=== PATIENT | female | born 1945 | race African-American/Black ===

== ENCOUNTER 2017-07-26 16:31 | Inpatient (IN) | payer OTHER ==
--- NOTE | 2017-07-26 16:39 | PDOC ---
Rapid Medical Evaluation Time Seen by Provider: 07/26/17 16:34 Medical Evaluation: 07/26/17 16:34 I have performed a brief in-person evaluation of this patient. The patient presents with a chief complaint of: dyspnea on exertion without chest pain Pertinent physical exam findings: PULM: Lungs CTAB. Resp labored. Cards: RRR. S1S2. No m/r/g. I have ordered the following: EKG, CBC, CMP, Trop, BNP, coags, UA, CXR, Mg, O2 The patient will proceed to the ED for further evaluation. Discharge Disposition - Diagnosis SOB (shortness of breath) - Referrals - Patient Instructions - Post Discharge Activity
[2017-07-26 17:24] LABS: MCH 24.9 pg (25.7-33.7); MCHC 32.3 g/dl (32.0-36.0); MEAN CELL VOLUME 77.2 fl (80-96); MEAN PLT VOLUME 8.6 fl (7.5-11.1); PLATELET COUNT 332 K/MM3 (134-434); RDW 15.2 % (11.6-15.6); WHITE BLOOD COUNT 7.4 K/mm3 (4.0-10.0)
[2017-07-26 17:39] LABS: INR 1.17 (0.82-1.09); PROTHROMBIN TIME (PATIENT) 13.2 SEC (9.98-11.88)
[2017-07-26 17:50] LABS: ALBUMIN 2.5 g/dl (3.4-5.0); ANION GAP 8 (8-16); BILIRUBIN,TOTAL 0.5 mg/dL (0.2-1.0); CALCIUM 8.5 mg/dL (8.5-10.1); CO2 28 mmol/L (21-32); CREATININE 0.6 mg/dL (0.55-1.02); GLUCOSE,RANDOM 79 mg/dL (74-106); MAGNESIUM 2.1 mg/dL (1.8-2.4); SGOT/AST 328 U/L (15-37); SGPT/ALT 321 U/L (12-78); TOT PROT 6.7 g/dl (6.4-8.2)
[2017-07-26 18:13] LABS: ALK PHOS 70 U/L (45-117)
[2017-07-26 18:24] LABS: CPK 10623 IU/L (26-192); TROPONIN I 1.25 ng/ml (0.00-0.05)
[2017-07-26 18:32] LABS: ANISOCYTOSIS 1+; POLYCHROMASIA 1+
--- NOTE | 2017-07-26 18:34 | PDOC ---
History of Present Illness - General Chief Complaint: Shortness of Breath Stated Complaint: PCP SENT INCREASE SOB Time Seen by Provider: 07/26/17 16:34 - History of Present Illness Initial Comments: 07/26/17 18:29 "The patient is a 72-year-old female, with a significant past medical history of HTN and gerd, who presents to the ED with one month of shortness of breath on exertion and bilateral lower extremity swelling. Pt saw her PCP today for worsening CHACON and was referred to ER for further evaluation. Pt denies ever having chest pain. Denies palpitations. Denies F/C. Denies cough. Denies orthopnea. No recent travel/immobilization. No h/o DVT/PE. " Past History - Past Medical History Allergies/Adverse Reactions: Allergies Allergy/AdvReac Type Severity Reaction Status Date / Time No Known Allergies Allergy Verified 07/26/17 16:35 Home Medications: Ambulatory Orders Amlodipine Besylate 10 mg PO DAILY 07/26/17 Famotidine 20 mg PO DAILY 07/26/17 Triamterene/Hydrochlorothiazid [Triamterene-Hctz 37.5-25 mg Cp] 1 tab PO DAILY 07/26/17 COPD: No GI Disorders: Yes (GERD) HTN: Yes - Suicide/Smoking/Psychosocial Hx Smoking History: Never smoked Information on smoking cessation initiated: No Hx Alcohol Use: No Drug/Substance Use Hx: No Substance Use Type: None Review of Systems - Review of Systems Comments:: 07/26/17 18:34 "GENERAL/CONSTITUTIONAL: no fever or chills. No weakness. HEAD, EYES, EARS, NOSE AND THROAT: No change in vision. No ear pain or discharge. No sore throat. CARDIOVASCULAR: +shortness of breath. No chest pain. RESPIRATORY: No cough, wheezing, or hemoptysis. GASTROINTESTINAL: No nausea, vomiting, diarrhea or constipation. GENITOURINARY: No dysuria, frequency, or change in urination. MUSCULOSKELETAL: No joint swelling or pain. No neck or back pain. EXTREMITIES: +bilateral lower extremity swelling. SKIN: No rash NEUROLOGIC: No headache, vertigo, loss of consciousness, or change in strength/ sensation. ENDOCRINE: No increased thirst. No abnormal weight change. HEMATOLOGIC/LYMPHATIC: No anemia, easy bleeding, or history of blood clots. ALLERGIC/IMMUNOLOGIC: No hives or skin allergy. " *Physical Exam - Vital Signs Last Vital Signs Temp Pulse Resp BP Pulse Ox 97.9 F 108 H 19 150/87 97 07/26/17 16:33 07/26/17 16:33 07/26/17 16:33 07/26/17 16:33 07/26/17 16:33 - Physical Exam Comments: 07/26/17 18:34 "GENERAL: Awake, alert, and fully oriented, in no acute distress HEAD: No signs of trauma EYES: PERRLA, EOMI, sclera anicteric, conjunctiva clear ENT: Auricles normal inspection, hearing grossly normal, nares patent, oropharynx clear without exudates. Moist mucosa NECK: Nontender, no stepoffs, Normal ROM, supple, no lymphadenopathy, JVD, or masses LUNGS: Breath sounds equal, clear to auscultation bilaterally. No wheezes, and no crackles HEART: Regular rate and rhythm, normal S1 and S2, no murmurs, rubs or gallops ABDOMEN: Soft, nontender, normoactive bowel sounds. No guarding, no rebound. No masses EXTREMITIES: +1 PE BLE, Normal range of motion, no edema. No clubbing or cyanosis. No cords, erythema, or tenderness NEUROLOGICAL: Cranial nerves II through XII intact. 5/5 strength and sensation in all extremities, Normal speech, normal gait SKIN: Warm, Dry, normal turgor, no rashes or lesions noted. " Heart Score/ECG Review - History History: Slightly suspicious - Electrocardiogram EKG: Non specific repolarization disturbance - Age Age: >/= 65 - Risk Factors Risk Factors Heart Score: Yes Hx Hypertension Based on the list above the patient has:: 1-2 risk factors - Troponin Troponin: >/=3x normal limit - Score Heart Score - Total: 6 - ECG Impressions Comment:: 07/26/17 18:35 NSR, no DOUGIE/STDs, T wave flattening and Q waves in anterior leads ED Treatment Course - LABORATORY CBC & Chemistry Diagram: 07/29/17 06:58 07/29/17 06:58 - ADDITIONAL ORDERS Additional order review: Laboratory Results 07/26/17 07/26/17 16:10 16:10 PT with INR 13.20 H INR 1.17 H Sodium 141 Potassium 3.7 Chloride 105 Carbon Dioxide 28 Anion Gap 8 BUN 11 Creatinine 0.6 Creat Clearance w eGFR > 60 Random Glucose 79 Calcium 8.5 Magnesium 2.1 Total Bilirubin 0.5 AST 328 H ALT 321 H Alkaline Phosphatase 70 Creatine Kinase 47391 H Troponin I 1.25 H* Total Protein 6.7 Albumin 2.5 L 07/26/17 16:10 RBC 5.28 H MCV 77.2 L MCHC 32.3 RDW 15.2 MPV 8.6 Neutrophils % No Result Required. Lymphocytes % No Result Required. - RADIOLOGY Radiology Studies Ordered: Category Date Time Status CHEST X-RAY PORTABLE* [RAD] Stat Radiology 07/26/17 18:27 Ordered Medical Decision Making - Medical Decision Making 07/26/17 18:35 72 F with SOB x 1 month as well as pedal edema. Concerning for new onset CHF. Also consider ACS, though pt without any chest pain. Pt with no asymmetric leg swelling to suggest DVT. - Labs, trop, BNP - CXR - Admit tele 07/26/17 18:42 Trop elevated to 1.2. Spoke with Dr. Flores, who states that pt had echo in clinic today showing normal LV function. Given this information, will order CTA chest to r/o PE. Will initiate tx for NSTEMI. Pt started on Heparin. aspirin and statin administered. Case discussed with Dr. Jones, who has accepted pt for admission Case discussed in detail with admitting physician including history, physical exam and ancillary studies. Admitting physician has assumed care for the patient and will follow all pending diagnostics and complete the evaluation and treatment. *DC/Admit/Observation/Transfer Diagnosis at time of Disposition: SOB (shortness of breath), NSTEMI (non-ST elevated myocardial infarction) - Discharge Dispostion Disposition: TRANSFER ACUTE CARE/OTHER HOSP Condition at time of disposition: Good Admit: Yes - Referrals - Patient Instructions - Post Discharge Activity - Attestations Physician Attestion: 07/26/17 18:36 I, Dr. Christian Lama MD, attest that this document has been prepared under my direction and personally reviewed by me in its entirety. I further attest, that it accurately reflects all work, treatment, procedures and medical decision -making performed by me.
[2017-07-26] MEDS: ATORVASTATIN CA 80 MG TABLET (FP) PO ONE ×2 (19:21→19:45)
[2017-07-26] MEDS: ASPIRIN 325 MG TABLET PO ONE ×2 (19:21→19:45)
[2017-07-26] MEDS ORDERED: ATORVASTATIN CA 80 MG TABLET (FP) ONE (19:52)
[2017-07-26] MEDS ORDERED: ASPIRIN 325 MG TABLET ONE (19:52)
[2017-07-26] MEDS ORDERED: HEPARIN NA (PORCINE) 5,000 UNITS/ML 1ML VIAL ONE ×2 (19:53→20:22)
[2017-07-26] MEDS ORDERED: HEPARIN INFUSION - 25,000 UNITS/500 ML INFUS.BAG IVPB ONE (19:53)
[2017-07-26] MEDS: HEPARIN NA (PORCINE) 5,000 UNITS/ML 1ML VIAL IVPUSH PRN (20:15)
[2017-07-26 21:26] LABS: TROPONIN I 1.28 ng/ml (0.00-0.05)
[2017-07-26 22:39] VITALS: BMI 27.7
[2017-07-27] MEDS: HEPARIN - 25,000 UNIT in SODIUM CHLORIDE 495 ML IV SCH ×2 (01:20→21:36)
[2017-07-27 04:32] LABS: TROPONIN I 1.28 ng/ml (0.00-0.05)
[2017-07-27 07:14] LABS: BASO % 0.8 % (0-2.0); EOS % 2.1 % (0-4.5); MCH 24.9 pg (25.7-33.7); MCHC 32.4 g/dl (32.0-36.0); MEAN PLT VOLUME 8.9 fl (7.5-11.1); NEUT % 77.4 % (42.8-82.8); PLATELET COUNT 311 K/MM3 (134-434); RDW 15.7 % (11.6-15.6); WHITE BLOOD COUNT 6.1 K/mm3 (4.0-10.0)
--- NOTE | 2017-07-27 07:20 | CON.CARD ---
Consult Consult Specialty:: Cardiology Referred by:: ER Reason for Consultation:: SOB, NSTEMI - History of Present Illness Chief Complaint: SOB, edema History of Present Illness: 72 year old woman h/o HTN seen in office yesterday with c/o 1 month h/o SOB, edema, found to have sinus tach with ST depressions, echo in office showed hyperdynamic LV function, mild mr, mild pulm htn, sent to ER. found to have elevated cardiac enzymes, CTA showed no PE. Pt seen and examined this am in nad. states she is feeling better. no chest pain, no sob at rest. no palpitations. no pnd or orthopnea. mild LE edema. - History Source History Provided By: Patient, Medical Record Limitations to Obtaining History: No Limitations - Past Medical History Cardio/Vascular: Yes: HTN - Alcohol/Substance Use Hx Alcohol Use: No - Smoking History Smoking history: Never smoked - Social History Usual Living Arrangement: Alone ADL: Independent History of Recent Travel: No Home Medications - Allergies Allergies/Adverse Reactions: Allergies Allergy/AdvReac Type Severity Reaction Status Date / Time No Known Allergies Allergy Verified 07/26/17 16:35 - Home Medications Home Medications: Ambulatory Orders Amlodipine Besylate 10 mg PO DAILY 07/26/17 Famotidine 20 mg PO DAILY 07/26/17 Triamterene/Hydrochlorothiazid [Triamterene-Hctz 37.5-25 mg Cp] 1 tab PO DAILY 07/26/17 Family Disease History - Family Disease History Family History: Denies Review of Systems - Review of Systems Constitutional: denies: No Symptoms, Chills, Diaphoresis, Fever, Lethargy, Loss of Appetite, Malaise, Night Sweats, Unintentional Wgt. Loss, Weakness, Other Eyes: denies: No Symptoms, Blind Spots, Blurred Vision, Double Vision, Eye Pain , Floaters, Photophobia, Recent Change in Vision, Other HENT: denies: No Symptoms, Difficult Swallowing, Ear Discharge, Ear Pain, Epistaxis, Gingival Bleeding, Hearing Loss, Mouth Swelling, Nasal Congestion, Ocular Prosthesis, Throat Pain, Toothache, Ringing in Ears, Other Neck: denies: No Symptoms, Decreased ROM, Lumps, Pain on Movement, Stiffness, Swollen Glands, Tenderness, Other Cardiovascular: reports: Edema, Shortness of Breath. denies: No Symptoms, Chest Pain, Palpitations, Other Respiratory: reports: SOB, SOB on Exertion. denies: No Symptoms, Cough, Exercise Intolerance, Hemoptysis, Orthopnea, PND, Snoring, Wheezing, Other Gastrointestinal: denies: No Symptoms, Abdominal Pain, Bloating, Constipation, Diarrhea, Dysphagia, Indigestion, Melena, Nausea, Rectal Bleeding, Vomiting, Vomiting Blood, Other Genitourinary: denies: No Symptoms, Burning, Discharge, Dysuria, Flank Pain, Frequency, Hematuria, Incontinence, Lesions, Menses, Pain, Testicular Mass, Testicular Pain, Testicular Swelling, Urgency, Vaginal Bleeding, Other Breasts: denies: No Symptoms Reported, See HPI, Breast Implants, Discharge from Nipple, Lumps, Pain, Skin Changes, Other Musculoskeletal: denies: No Symptoms, Back Pain, Crepitus, Decreased ROM, Extremity Pain, Joint Pain, Joint Swelling, Muscle Pain, Muscle Cramps, Muscle Weakness, Other Integumentary: denies: No Symptoms, Blister, Bruising, Change in Color, Eczema, Erythema, Incision, Lesions, Lump, Pallor, Pruritis, Rash, Wound, Other Neurological: denies: No Symptoms, Change in LOC, Change in Speech, Confusion, Dizziness, Headache, Incoordination, Numbness, Parasthesia, Pre-Existing Deficit , Seizure, Syncope, Tremors, Unsteady Gait, Weakness, Other Endocrine: denies: No Symptoms, Excessive Sweating, Flushing, Increased Hunger, Increased Thirst, Intolerance to Cold, Intolerance to Heat, Unexplained Weight Gain, Unexplained Weight Loss, Other Hematology/Lymphatic: denies: No Symptoms, Easily Bruised, Excessive Bleeding, Swollen Glands, Other Psychiatric: denies: No Symptoms, Altered Sleep Pattern, Anxiety, Depression, Hallucinations, Panic, Paranoia, Suicidal, Other - Risk Factors Known Risk Factors: Yes: Age, Hypertension Vital Signs: Vital Signs Temperature 98.4 F 07/27/17 06:00 Pulse Rate 90 07/27/17 06:00 Respiratory Rate 20 07/27/17 06:00 Blood Pressure 116/61 07/27/17 06:00 O2 Sat by Pulse Oximetry (%) 97 07/26/17 21:00 Constitutional: Yes: Well Nourished, No Distress, Calm Eyes: Yes: WNL, Conjunctiva Clear, EOM Intact, PERRL HENT: Yes: WNL, Atraumatic, Normocephalic Neck: Yes: WNL, Supple, Trachea Midline Respiratory: Yes: WNL, Regular, CTA Bilaterally. No: Rales, Rhonchi, SOB, Wheezes Gastrointestinal: Yes: WNL, Normal Bowel Sounds, Soft. No: Distention, Tenderness Renal/: Yes: WNL Cardiovascular: Yes: WNL, Regular Rate and Rhythm. No: Bradycardia, Tachycardia , Pulse Irregular, Gallop, Rub, Varicosities JVD: No Carotid Bruit: No PMI: Non-Displaced Heart Sounds: Yes: S1, S2. No: Split S2, S3, S4, Clicks, Gallop, Rub, Bruit Murmur: No: Systolic Murmur, Diastolic Murmur Musculoskeletal: Yes: WNL Extremities: Yes: WNL Edema: Yes Edema: LLE: Trace, RLE: Trace Peripheral Pulses WNL: Yes Peripheral Pulses: 2+ Left Doralis Pedis, 2+ Right Dorsalis Pedis Integumentary: Yes: WNL Neurological: Yes: WNL, Alert, Oriented, Cran Nerves II-XII Intact ...Motor Strength: WNL Psychiatric: Yes: WNL, Alert, Oriented - Other Data Labs, Other Data: CBC, BMP 07/27/17 05:05 INR, PTT INR 1.17 (0.82-1.09) H 07/26/17 16:10 Troponin, BNP 07/26/17 07/26/17 07/27/17 16:10 20:15 03:30 Troponin I 1.25 H* 1.28 H* 1.28 H* B-Natriuretic Peptide 3329.08 H Troponin, BNP 07/26/17 07/26/17 07/27/17 16:10 20:15 03:30 Troponin I 1.25 H* 1.28 H* 1.28 H* B-Natriuretic Peptide 3329.08 H ekg-sinus tach 106bpm, St depressions V3-V6, I avL, septal infarct, LAD Echo: Report Reviewed Imaging - Results Chest X-ray: Report Reviewed, Image Reviewed EKG: Report Reviewed, Image Reviewed Other: Report Reviewed, Image Reviewed (tele-nsr, sinus tach, PVCs, Vent couplets) Assessment/Plan 72 year old woman h/o HTN seen in office yesterday with c/o 1 month h/o SOB, edema, found to have sinus tach with ST depressions, echo in office showed hyperdynamic LV function, mild mr, mild pulm htn, sent to ER. found to have elevated cardiac enzymes, CTA showed no PE. SOB/edema-NSTEMI -concern for NSTEMI -CTA showed no PE -echo in office yesterday reported as hyperdynamic LV systolic function -ischemia on ekg -CK 10,000 Trop 1.28 peak, not trending up -no history concerning for rhabdo (considered due to ratio of CK to troponin), no falls, pt not on statin previously -no sig arrhythmias on telemetry overnight -cont heparin gtt -cont ASA 81mg daily -start Plavix 75mg daily, Toprol XL 12.5mg daily -hold statin for now due to possible rhabdo and elevated LFTs -hold off on diuresis at this time, overall euvolemic despite trace LE edema -will plan for transfer to [facility] for cardiac cath, likely transfer tomorrow for cardiac cath on saturday. HTN-well controlled -start toprol -hold home triamterene and amlodipine for now to allow room for [facility]
[2017-07-27 08:08] LABS: ANION GAP 10 (8-16); BILIRUBIN,TOTAL 0.6 mg/dL (0.2-1.0); CALCIUM 8.3 mg/dL (8.5-10.1); CO2 27 mmol/L (21-32); CREATININE 0.4 mg/dL (0.55-1.02); GLUCOSE,RANDOM 69 mg/dL (74-106); SGOT/AST 228 U/L (15-37); SGPT/ALT 245 U/L (12-78); TOT PROT 5.6 g/dl (6.4-8.2)
[2017-07-27 08:09] LABS: ALK PHOS 56 U/L (45-117)
[2017-07-27] MEDS ORDERED: PNEUMOC 13-VAL CONJ-DIP CRM/PF 0.5 ML DISP.SYRIN IM ONE (09:00)
[2017-07-27] MEDS: ASPIRIN COATED 81 MG TABLET.EC PO SCH (09:31)
[2017-07-27] MEDS: METOPROLOL SUCCINATE 25 MG TAB.SR.24H (FP) PO SCH (11:01)
[2017-07-27] MEDS: CLOPIDOGREL BISULFATE 75 MG TABLET (FP) PO SCH (11:01)
--- NOTE | 2017-07-27 19:45 | PN ---
Progress Note, Physician History of Present Illness: Pt was seen and examined However H&P was entered in error - Current Medication List Current Medications: Active Medications Aspirin (Ecotrin -) 81 mg PO DAILY [facility] Last Admin: 07/27/17 09:31 Dose: 81 mg Clopidogrel Bisulfate (Plavix -) 75 mg PO DAILY [facility] Last Admin: 07/27/17 11:01 Dose: 75 mg Heparin Sodium (Porcine) (Heparin -) 5,000 unit IVPUSH PRN PRN PRN Reason: Heparin Last Admin: 07/26/17 20:15 Dose: 5,000 unit Heparin Sodium (Porcine) 25, (000 unit/ Sodium Chloride) 500 mls @ 20 mls/hr IV TITR BILLY; 1,000 UNIT/HR PRN Reason: Protocol Last Admin: 07/27/17 01:20 Dose: 1,000 unit/hr, 20 mls/hr Metoprolol Succinate (Toprol Xl -) 12.5 mg PO DAILY [facility] Last Admin: 07/27/17 11:01 Dose: 12.5 mg - Objective Vital Signs: Vital Signs Temperature 98.2 F 07/27/17 18:00 Pulse Rate 88 07/27/17 18:00 Respiratory Rate 20 07/27/17 18:00 Blood Pressure 114/59 07/27/17 18:00 O2 Sat by Pulse Oximetry (%) 97 07/27/17 09:00 Labs: CBC, BMP 07/27/17 05:05 07/27/17 05:05 INR, PTT INR 1.17 (0.82-1.09) H 07/26/17 16:10
[2017-07-27] MEDS ORDERED: ATORVASTATIN CA 80 MG TABLET (FP) PO SCH (22:00)
[2017-07-28] MEDS: HEPARIN NA (PORCINE) 5,000 UNITS/ML 1ML VIAL IVPUSH PRN ×2 (02:55→17:43)
[2017-07-28 09:09] LABS: MCH 24.9 pg (25.7-33.7); MCHC 32.2 g/dl (32.0-36.0); MEAN CELL VOLUME 77.5 fl (80-96); MEAN PLT VOLUME 8.8 fl (7.5-11.1); PLATELET COUNT 322 K/MM3 (134-434); WHITE BLOOD COUNT 6.4 K/mm3 (4.0-10.0)
[2017-07-28] MEDS: ASPIRIN COATED 81 MG TABLET.EC PO SCH (09:39)
[2017-07-28] MEDS: METOPROLOL SUCCINATE 25 MG TAB.SR.24H (FP) PO SCH (09:39)
[2017-07-28] MEDS: CLOPIDOGREL BISULFATE 75 MG TABLET (FP) PO SCH (09:40)
--- NOTE | 2017-07-28 10:04 | PN ---
Progress Note, Physician History of Present Illness: seen and examined today in nad. no overnight events. no new complaints. states she is overall feeling better since admission. - Current Medication List Current Medications: Active Medications Aspirin (Ecotrin -) 81 mg PO DAILY [facility] Last Admin: 07/28/17 09:39 Dose: 81 mg Clopidogrel Bisulfate (Plavix -) 75 mg PO DAILY [facility] Last Admin: 07/28/17 09:40 Dose: 75 mg Heparin Sodium (Porcine) (Heparin -) 5,000 unit IVPUSH PRN PRN PRN Reason: Heparin Last Admin: 07/28/17 02:55 Dose: 1,000 unit Heparin Sodium (Porcine) 25, (000 unit/ Sodium Chloride) 500 mls @ 20 mls/hr IV TITR BILLY; 1,000 UNIT/HR PRN Reason: Protocol Last Titration: 07/28/17 02:55 Dose: 1,100 unit/hr, 22 mls/hr Metoprolol Succinate (Toprol Xl -) 12.5 mg PO DAILY [facility] Last Admin: 07/28/17 09:39 Dose: 12.5 mg - Objective Vital Signs: Vital Signs Temperature 98.3 F 07/28/17 05:42 Pulse Rate 84 07/28/17 05:42 Respiratory Rate 20 07/28/17 05:42 Blood Pressure 132/60 07/28/17 05:42 O2 Sat by Pulse Oximetry (%) 96 07/27/17 21:00 Constitutional: Yes: Well Nourished, No Distress, Calm Eyes: Yes: WNL, Conjunctiva Clear, EOM Intact, PERRL HENT: Yes: WNL, Atraumatic, Normocephalic Neck: Yes: WNL, Supple, Trachea Midline Cardiovascular: Yes: WNL, Regular Rate and Rhythm, S1, S2. No: Bradycardia, Tachycardia, Pulse Irregular, Bruit, JVD, Gallop, Murmur, Rub, S3, S4, Varicosities Respiratory: Yes: Regular, Diminished, On Nasal O2. No: Rales, Rhonchi, SOB, Wheezes Gastrointestinal: Yes: Normal Bowel Sounds, Soft. No: Distention, Tenderness Musculoskeletal: Yes: WNL Extremities: Yes: WNL Edema: LLE: Trace, RLE: Trace Peripheral Pulses WNL: Yes Peripheral Pulses: Left Doralis Pedis: 2+, Right Dorsalis Pedis: 2+ Neurological: Yes: Alert, Oriented Psychiatric: Yes: Alert, Oriented Labs: CBC, BMP 07/28/17 07:00 07/27/17 05:05 INR, PTT INR 1.17 (0.82-1.09) H 07/26/17 16:10 - ....Imaging Chest X-ray: Report Reviewed, Image Reviewed EKG: Report Reviewed, Image Reviewed Other: Report Reviewed, Image Reviewed (tele-nsr, pvcs, Vent couplets) Assessment/Plan 72 year old woman h/o HTN seen in office yesterday with c/o 1 month h/o SOB, edema, found to have sinus tach with ST depressions, echo in office showed hyperdynamic LV function, mild mr, mild pulm htn, sent to ER. found to have elevated cardiac enzymes, CTA showed no PE. SOB/edema-NSTEMI -clinically improving, no chest pain or sob currently -CTA showed no PE -echo in office reported as hyperdynamic LV systolic function -some suggestion of ischemia on ekg -CK 10,000 Trop 1.28 peak, will repeat enzymes now -no history concerning for cause of rhabdo (considered due to ratio of CK to troponin), no falls, pt not on statin previously -no sig arrhythmias on telemetry -cont heparin gtt until cardiac cath -cont ASA 81mg daily -cont Plavix 75mg daily, and Toprol XL 12.5mg daily -hold statin for now due to possible rhabdo and elevated LFTs -hold off on diuresis at this time, overall euvolemic despite trace LE edema -plan is for transfer to [facility] for cardiac cath, likely transfer tomorrow am for cardiac cath, pt requested to not go today as the procedure wouldnt be until tomorrow either way HTN-well controlled -cont toprol -hold home triamterene and amlodipine for now to allow room for [facility]
[2017-07-28 11:17] LABS: ALK PHOS 63 U/L (45-117); ANION GAP 9 (8-16); BILIRUBIN,TOTAL 0.8 mg/dL (0.2-1.0); CALCIUM 7.9 mg/dL (8.5-10.1); CO2 27 mmol/L (21-32); CREATININE 0.4 mg/dL (0.55-1.02); GLUCOSE,RANDOM 80 mg/dL (74-106); SGOT/AST 187 U/L (15-37); SGPT/ALT 223 U/L (12-78); TOT PROT 5.7 g/dl (6.4-8.2)
[2017-07-28 11:45] LABS: CPK 5997 IU/L (26-192)
[2017-07-28 11:47] LABS: TROPONIN I 0.85 ng/ml (0.00-0.05)
--- NOTE | 2017-07-28 21:40 | HP ---
Admitting History and Physical - Admission Chief Complaint: Pt seen and examined on 07/27/17 however note was entered incorrectly History of Present Illness: Pt is a 72 y/o female w/ PMH significant for HTN and GERD; however she is not on any meds. Pt presented to PMD today due to 1 month h/o SOB associated w/ lower extremity edema and weakness. Pt had not seen any doctor prior to this. Pt denies any chest pain and no palpitations/cough/wheezing. Pt also denied any abdominal pain and nausea and no vomiting. In the ER pt found to have elevated troponin >1.2 and BNP of >3000. Pt also had CXR wc cardiomegaly and CTA chest was done wc was negative for PE. - Past Medical History Cardiovascular: Yes: HTN Gastrointestinal: Yes: GERD - Past Surgical History Past Surgical History: Yes: None - Smoking History Smoking history: Never smoked - Alcohol/Substance Use Hx Alcohol Use: No - Social History ADL: Independent History of Recent Travel: No Home Medications - Allergies Allergies/Adverse Reactions: Allergies Allergy/AdvReac Type Severity Reaction Status Date / Time No Known Allergies Allergy Verified 07/26/17 16:35 - Home Medications Home Medications: Ambulatory Orders Amlodipine Besylate 10 mg PO DAILY 07/26/17 Famotidine 20 mg PO DAILY 07/26/17 Triamterene/Hydrochlorothiazid [Triamterene-Hctz 37.5-25 mg Cp] 1 tab PO DAILY 07/26/17 Family Disease History - Family Disease History Family History: Unremarkable Review of Systems - Review of Systems Constitutional: reports: Weakness Eyes: reports: No Symptoms HENT: reports: No Symptoms Neck: reports: No Symptoms Cardiovascular: reports: Shortness of Breath Respiratory: reports: SOB Gastrointestinal: reports: No Symptoms Genitourinary: reports: No Symptoms Musculoskeletal: reports: Muscle Weakness Neurological: reports: No Symptoms Physical Examination Vital Signs: Vital Signs Temperature 97.3 F L 07/28/17 21:00 Pulse Rate 88 07/28/17 21:00 Respiratory Rate 20 07/28/17 21:00 Blood Pressure 119/60 07/28/17 21:00 O2 Sat by Pulse Oximetry (%) 98 07/28/17 21:00 Constitutional: Yes: No Distress Eyes: Yes: WNL HENT: Yes: WNL Neck: Yes: WNL, Supple Cardiovascular: Yes: WNL, Regular Rate and Rhythm Respiratory: Yes: WNL, Regular, CTA Bilaterally Gastrointestinal: Yes: WNL, Normal Bowel Sounds, Soft Breast(s): Yes: WNL Musculoskeletal: Yes: WNL Edema: Yes Edema: LLE: Trace, RLE: Trace Neurological: Yes: WNL, Alert, Oriented ...Motor Strength: WNL Labs: CBC, BMP 07/28/17 07:00 07/28/17 07:45 Problem List - Problems (1) NSTEMI (non-ST elevated myocardial infarction) Assessment/Plan: Admitted to tele Serial cpk/troponin Check echo Pt on IV heparin Cont asa Statin on hold due to elevated LFT's ? transfer for cardiac cath Code(s): I21.4 - NON-ST ELEVATION (NSTEMI) MYOCARDIAL INFARCTION (2) HTN (hypertension) Assessment/Plan: Cont toprol/asa Code(s): I10 - ESSENTIAL (PRIMARY) HYPERTENSION (3) SOB (shortness of breath) Assessment/Plan: Due to NSTEMI vs CHF Pt is euvolemic Check echo Code(s): R06.02 - SHORTNESS OF BREATH (4) Elevated LFTs Assessment/Plan: Monitor LFT's Code(s): R79.89 - OTHER SPECIFIED ABNORMAL FINDINGS OF BLOOD CHEMISTRY
--- NOTE | 2017-07-28 21:41 | PN ---
Progress Note, Physician History of Present Illness: Pt denies any chest pain - Current Medication List Current Medications: Active Medications Aspirin (Ecotrin -) 81 mg PO DAILY [facility] Last Admin: 07/28/17 09:39 Dose: 81 mg Clopidogrel Bisulfate (Plavix -) 75 mg PO DAILY [facility] Last Admin: 07/28/17 09:40 Dose: 75 mg Heparin Sodium (Porcine) (Heparin -) 5,000 unit IVPUSH PRN PRN PRN Reason: Heparin Last Admin: 07/28/17 17:43 Dose: 1,000 unit Heparin Sodium (Porcine) 25, (000 unit/ Sodium Chloride) 500 mls @ 20 mls/hr IV TITR BILLY; 1,000 UNIT/HR PRN Reason: Protocol Last Titration: 07/28/17 17:42 Dose: 1,200 unit/hr, 24 mls/hr Metoprolol Succinate (Toprol Xl -) 12.5 mg PO DAILY [facility] Last Admin: 07/28/17 09:39 Dose: 12.5 mg - Objective Vital Signs: Vital Signs Temperature 97.3 F L 07/28/17 21:00 Pulse Rate 88 07/28/17 21:00 Respiratory Rate 20 07/28/17 21:00 Blood Pressure 119/60 07/28/17 21:00 O2 Sat by Pulse Oximetry (%) 98 07/28/17 21:00 Constitutional: Yes: No Distress Neck: Yes: WNL, Supple Cardiovascular: Yes: WNL, Regular Rate and Rhythm Respiratory: Yes: WNL, Regular, CTA Bilaterally Gastrointestinal: Yes: WNL, Normal Bowel Sounds, Soft Musculoskeletal: Yes: WNL Edema: Yes Edema: LLE: Trace, RLE: Trace Labs: CBC, BMP 07/28/17 07:00 07/28/17 07:45 INR, PTT INR 1.17 (0.82-1.09) H 07/26/17 16:10 Problem List - Problems (1) NSTEMI (non-ST elevated myocardial infarction) Assessment/Plan: Check echo Pt on IV heparin Cont asa/plavix/toprol Statin on hold due to elevated LFT's ? transfer for cardiac cath As per cardio Code(s): I21.4 - NON-ST ELEVATION (NSTEMI) MYOCARDIAL INFARCTION (2) Elevated LFTs Assessment/Plan: Monitor LFT's Check US abdomen GI consult Code(s): R79.89 - OTHER SPECIFIED ABNORMAL FINDINGS OF BLOOD CHEMISTRY (3) HTN (hypertension) Assessment/Plan: Cont toprol/asa Code(s): I10 - ESSENTIAL (PRIMARY) HYPERTENSION (4) SOB (shortness of breath) Assessment/Plan: Due to NSTEMI vs CHF Pt is euvolemic Check echo Code(s): R06.02 - SHORTNESS OF BREATH
[2017-07-28] MEDS ORDERED: PT OWN MED DRAWER 7, Y5N ONE (22:24)
[2017-07-28] MEDS: HEPARIN - 25,000 UNIT in SODIUM CHLORIDE 495 ML IV SCH (22:53)
[2017-07-29 08:04] LABS: MCH 24.6 pg (25.7-33.7); MCHC 31.9 g/dl (32.0-36.0); MEAN CELL VOLUME 76.9 fl (80-96); MEAN PLT VOLUME 8.8 fl (7.5-11.1); PLATELET COUNT 316 K/MM3 (134-434); RDW 15.7 % (11.6-15.6); WHITE BLOOD COUNT 6.6 K/mm3 (4.0-10.0)
[2017-07-29 08:35] LABS: CALCIUM 8.2 mg/dL (8.5-10.1); SGOT/AST 190 U/L (15-37); SGPT/ALT 228 U/L (12-78)
[2017-07-29 08:39] LABS: ALBUMIN 2.2 g/dl (3.4-5.0); ALK PHOS 69 U/L (45-117); ANION GAP 9 (8-16); BILIRUBIN,TOTAL 0.5 mg/dL (0.2-1.0); CO2 28 mmol/L (21-32); CREATININE 0.5 mg/dL (0.55-1.02); GLUCOSE,RANDOM 96 mg/dL (74-106); TOT PROT 6.2 g/dl (6.4-8.2)
[2017-07-29] MEDS: CLOPIDOGREL BISULFATE 75 MG TABLET (FP) PO SCH (09:30)
[2017-07-29] MEDS: METOPROLOL SUCCINATE 25 MG TAB.SR.24H (FP) PO SCH (09:30)
[2017-07-29] MEDS: ASPIRIN COATED 81 MG TABLET.EC PO SCH (09:30)
[2017-07-29 10:29] LABS: ANISOCYTOSIS 0; HYPOCHROMIA 0; MACROCYTOSIS 0; METAMYELOCYTE 0 % (0-2); MICROCYTOSIS 0; MYELOCYTE 4 % (0-2); PLATELET ESTIMATE NORMAL; POIKILOCYTOSIS 0; POLYCHROMASIA 0; REACTIVE LYMPHOCYTES 0 % (0-80); TARGET CELLS 3+
[2017-07-29] MEDS ORDERED: FUROSEMIDE 40 MG/4 ML INJECTABLE VIAL IVPUSH ONE (11:10)
--- NOTE | 2017-07-29 13:12 | PN ---
Progress Note, Physician History of Present Illness: seen and examined today in nad. more edema today and cough overnight. - Current Medication List Current Medications: Active Medications Aspirin (Ecotrin -) 81 mg PO DAILY [facility] Last Admin: 07/29/17 09:30 Dose: 81 mg Clopidogrel Bisulfate (Plavix -) 75 mg PO DAILY [facility] Last Admin: 07/29/17 09:30 Dose: 75 mg Heparin Sodium (Porcine) (Heparin -) 5,000 unit IVPUSH PRN PRN PRN Reason: Heparin Last Admin: 07/28/17 17:43 Dose: 1,000 unit Heparin Sodium (Porcine) 25, (000 unit/ Sodium Chloride) 500 mls @ 20 mls/hr IV TITR BILLY; 1,000 UNIT/HR PRN Reason: Protocol Last Admin: 07/28/17 22:53 Dose: Not Given Metoprolol Succinate (Toprol Xl -) 12.5 mg PO DAILY [facility] Last Admin: 07/29/17 09:30 Dose: 12.5 mg - Objective Vital Signs: Vital Signs Temperature 97.8 F 07/29/17 06:00 Pulse Rate 85 07/29/17 09:00 Respiratory Rate 16 07/29/17 09:00 Blood Pressure 130/70 07/29/17 09:00 O2 Sat by Pulse Oximetry (%) 100 07/29/17 09:00 Constitutional: Yes: Well Nourished, No Distress, Calm Eyes: Yes: WNL, Conjunctiva Clear, EOM Intact, PERRL HENT: Yes: WNL, Atraumatic, Normocephalic Neck: Yes: WNL, Supple, Trachea Midline Cardiovascular: Yes: Regular Rate and Rhythm, S1, S2. No: Bradycardia, Tachycardia, Pulse Irregular, Bruit, JVD, Gallop, Murmur, Rub, S3, S4, Varicosities Respiratory: Yes: Regular, Diminished, Rales. No: Rhonchi, SOB, Wheezes Gastrointestinal: Yes: Normal Bowel Sounds, Soft. No: Distention, Tenderness Extremities: Yes: WNL Edema: Yes Edema: LLE: 2+, RLE: 2+ Peripheral Pulses WNL: Yes Peripheral Pulses: Left Doralis Pedis: 2+, Right Dorsalis Pedis: 2+ Integumentary: Yes: WNL Neurological: Yes: Alert, Oriented Psychiatric: Yes: Alert, Oriented Labs: CBC, BMP 07/29/17 06:58 07/29/17 06:58 INR, PTT INR 1.17 (0.82-1.09) H 07/26/17 16:10 - ....Imaging Chest X-ray: Report Reviewed, Image Reviewed EKG: Report Reviewed, Image Reviewed Other: Report Reviewed, Image Reviewed (tele-nsr, pvcs) Assessment/Plan 72 year old woman h/o HTN seen in office yesterday with c/o 1 month h/o SOB, edema, found to have sinus tach with ST depressions, echo in office showed hyperdynamic LV function, mild mr, mild pulm htn, sent to ER. found to have elevated cardiac enzymes, CTA showed no PE. SOB/edema-NSTEMI, Acute Diastolic CHF -more edema today and cough overnight with clinical worse pulmonary vascular congestion -will give 1 dose IV Lasix 40mg now and further diuresis as needed at [facility] after cardiac cath -CTA showed no PE -echo in office reported as hyperdynamic LV systolic function -some suggestion of ischemia on ekg -cardiac enzymes trending down -no sig arrhythmias on telemetry -cont heparin gtt until cardiac cath -cont ASA 81mg daily -cont Plavix 75mg daily, and Toprol XL 12.5mg daily -hold statin for now due to possible rhabdo and elevated LFTs -plan is for transfer to [facility] for cardiac cath today HTN-well controlled -cont toprol -hold home triamterene and amlodipine for now to allow room for [facility]
[2017-07-29 14:28] VITALS: BP 116/64; PULSE 86; TEMP 98.2
--- NOTE | 2017-07-29 22:56 | DS ---
Physical Examination Vital Signs: Vital Signs Temperature 98.2 F 07/29/17 14:00 Pulse Rate 86 07/29/17 14:00 Respiratory Rate 16 07/29/17 14:00 Blood Pressure 116/64 07/29/17 14:00 O2 Sat by Pulse Oximetry (%) 100 07/29/17 09:00 Labs: CBC, BMP 07/29/17 06:58 07/29/17 06:58 Discharge Summary Reason For Visit: NSTEMI; MYOCARDIAL INFARCTION NSTEMI Acute diastolic CHF HTN GERD Hospital Course: Pt is a 72 y/o female w/ PMH significant for HTN and GERD. Pt presented to the ER w/ SOB and lower extremity edema and weakness. On admission pt found to have NSTEMI w/ elevated troponin to 1.28 and elevated BNP of > 3000. Pt was admitted to [facility] and serial cpk/troponin were followed. Pt was also seen by cardio and was tranferred to [facility] for cardiac cath. Pt was started on IV heparin/plavix on admission. Pt also found to have acute diastolic CHF. Condition: Good - Instructions Referrals: Sergio Pelletier MD [Primary Care Provider] - Disposition: TRANSFER ACUTE CARE/OTHER HOSP - Home Medications Comprehensive Discharge Medication List: Ambulatory Orders Amlodipine Besylate 10 mg PO DAILY 07/26/17 Famotidine 20 mg PO DAILY 07/26/17 Triamterene/Hydrochlorothiazid [Triamterene-Hctz 37.5-25 mg Cp] 1 tab PO DAILY 07/26/17
--- NOTE | 2017-07-30 01:48 | EKG ---
Test Reason : Blood Pressure : / mmHG Vent. Rate : 106 BPM Atrial Rate : 106 BPM P-R Int : 162 ms QRS Dur : 092 ms QT Int : 326 ms P-R-T Axes : 034 -34 -17 degrees QTc Int : 433 ms SINUS TACHYCARDIA LEFT AXIS DEVIATION LOW VOLTAGE QRS SEPTAL INFARCT , AGE UNDETERMINED ABNORMAL ECG NO PREVIOUS ECGS AVAILABLE Confirmed by CORETTA DONOHUE MD ([id number]) on 07/30/2017 1:48:04 AM Referred By: Confirmed By:CORETTA DONOHUE MD
== END 2017-07-29 15:35 | disposition short-term general hospital (02) | DRG 280 ==
LOC: JER 16:31 → JERBED 18:36 → J4W 21:38
PROVIDERS: ADMIT Internal Medicine; ATTEND Internal Medicine
DX: I21.4 Non-ST elevation (NSTEMI) myocardial infarction (principal); I50.31 Acute diastolic (congestive) heart failure; K21.9 Gastro-esophageal reflux disease without esophagitis; R79.89 Other specified abnormal findings of blood chemistry; R06.02 Shortness of breath; R00.0 Tachycardia, unspecified; I11.0 Hypertensive heart disease with heart failure; I27.20 Pulmonary hypertension, unspecified
CPT/HCPCS: 36415; 71010-TC; 71275-TC; 76700-TC; 80053; 80061; 82550; 82553; 83721; 83735; 83880; 84484; 85025; 85027; 85610; 85730; 90670; 93005; 93010; 93306-TC; 99283-25; J1644

== ENCOUNTER 2017-08-30 14:20 | Inpatient (IN) | payer OTHER ==
--- NOTE | 2017-08-30 15:47 | PDOC ---
Attending Attestation - Resident Resident Name: Meagan Pink - ED Attending Attestation I have performed the following: I have examined & evaluated the patient, The case was reviewed & discussed with the resident, I agree w/resident's findings & plan, Exceptions are as noted - HPI HPI: 08/30/17 15:46 72y F hx of htn, presnts with increasing gradual onset sob and b/l le edema. complaining orthopnea/sob. Pt denie sany cp, fever/chills, cough. On exam the pt is in no distress. +2 pitting edema b/l without any calf tenderness. no rales noted vitals normal cardiac exam unremarkable b/l edema - consider chf - but will r/o renal insufficiency, liver failure will obtain cxr, labs will give lasix, will dw cardiology regarding disposition 08/30/17 18:14 pts labs reviewed noted for trop of 1 ck also elevated no chest pain or signs of acute ischemia on her ekg - will discuss with dr. Flores rgarding possible ac - Physicial Exam PE: 08/31/17 16:49 see abve - Medical Decision Making 08/31/17 16:49 see above Heart Score/ECG Review - ECG Impressions Comment:: 08/30/17 17:04 Twelve-lead EKG was performed and reviewed by me. There is normal sinus rhythm with a normal rate. rate of 82 left axis deviation incomplete rbbb nonsepcific st wave changes
[2017-08-30 16:40] LABS: HEMATOCRIT 37.6 % (32.4-45.2); HEMOGLOBIN 12.4 GM/dL (10.7-15.3); MCHC 32.9 g/dl (32.0-36.0); RDW 18.2 % (11.6-15.6); WHITE BLOOD COUNT 10.2 K/mm3 (4.0-10.0)
[2017-08-30 16:49] LABS: MCH 25.2 pg (25.7-33.7); MEAN CELL VOLUME 76.4 fl (80-96); MEAN PLT VOLUME 8.6 fl (7.5-11.1); PLATELET COUNT 384 K/MM3 (134-434); RBC 4.93 M/mm3 (3.60-5.2)
[2017-08-30 17:20] LABS: ALBUMIN 1.9 g/dl (3.4-5.0); ANION GAP 9 (8-16); BILIRUBIN,TOTAL 0.4 mg/dL (0.2-1.0); BLOOD UREA NITROGEN 14 mg/dL (7-18); CALCIUM 7.8 mg/dL (8.5-10.1); CHLORIDE 107 mmol/L (98-107); CO2 27 mmol/L (21-32); CREATININE 0.6 mg/dL (0.55-1.02); GLUCOSE,RANDOM 68 mg/dL (74-106); POTASSIUM 3.9 mmol/L (3.5-5.1); SGOT/AST 273 U/L (15-37); SGPT/ALT 249 U/L (12-78); SODIUM 143 mmol/L (136-145); TOT PROT 6.1 g/dl (6.4-8.2)
[2017-08-30 17:43] LABS: ALK PHOS 73 U/L (45-117)
--- NOTE | 2017-08-30 17:55 | PDOC ---
History of Present Illness - General Chief Complaint: Weakness Stated Complaint: WEAKNESS Time Seen by Provider: 08/30/17 15:01 - History of Present Illness Initial Comments: Ms. Ramirez is a 72yo F with PMHx of HTN who presented with gradual onset SOB and bilateral lower extremity swelling. She has associate fatigue and worsening orthopnea. She denies recent chest pain, palpitations. She was recently admitted last month for similar symptoms and an Echo showed normal EF, ventricular size and function. She had elevated troponins at that time, and was treated as an NSTEMi, [facility] but it presumably didn't show significant stenosis because she did not receive stents. She denies changes in medications, recent viral illness, drinking excessive amounts of water. She denies muscle ache, statin use, periods of immobility. Past History - Past Medical History Allergies/Adverse Reactions: Allergies Allergy/AdvReac Type Severity Reaction Status Date / Time No Known Allergies Allergy Verified 08/30/17 14:41 Home Medications: Ambulatory Orders Amlodipine Besylate 10 mg PO DAILY 07/26/17 Famotidine 20 mg PO DAILY 07/26/17 Triamterene/Hydrochlorothiazid [Triamterene-Hctz 37.5-25 mg Cp] 1 tab PO DAILY 07/26/17 COPD: No GI Disorders: Yes (GERD) HTN: Yes - Suicide/Smoking/Psychosocial Hx Smoking History: Never smoked Have you smoked in the past 12 months: No Hx Alcohol Use: No Drug/Substance Use Hx: No Substance Use Type: None *Physical Exam - Vital Signs Last Vital Signs Temp Pulse Resp BP Pulse Ox 97.6 F 86 18 118/53 97 08/30/17 14:42 08/30/17 14:42 08/30/17 14:42 08/30/17 14:42 08/30/17 14:42 - Physical Exam Comments: GEN: AAOx3, NAD, Lying comfortably HEENT: PERRLA, EOMi CV: S1, S2, RRR LUNG: Bibasilar crackles ABD: Soft, NT, ND, normoactive BS MSK: Bilateral 2+ pitting edema NEURO: CN 2-12 grossly intact ED Treatment Course - LABORATORY CBC & Chemistry Diagram: 08/30/17 16:30 08/30/17 16:30 - ADDITIONAL ORDERS Additional order review: 08/30/17 16:30 RBC 4.93 MCV 76.4 L MCHC 32.9 RDW 18.2 H D MPV 8.6 Neutrophils % No Result Required. Lymphocytes % No Result Required. - RADIOLOGY Radiology Studies Ordered: Category Date Time Status CXRPORT [CHEST X-RAY PORTABLE*] [RAD] Stat Radiology 08/30/17 15:43 Taken Medical Decision Making - Medical Decision Making Ms Ramirez is a 72yo F with a PMHx of HTN who presents in clinical CHF w/o chest pain. Echo 1 month prior shows normal EF, though LV shows normal size, patient likely has diastolic CHF. O2 sats and BP are stable. DDx for causes include silent IN, ?increase PO intake. --CBC, CMP --Cardiac Profile --EKG --BNP --CXR 08/30/17 18:00 Labs show elevated troponin and CK, EKG wnl. SImilar presentation 1 month ago w / CHF symptoms, troponins, treated as NSTEMi, transferred, had ?presumable normal cath. Discussed case w/Dr Sue (covering for Dr Flores), will not treat as NSTEMi. Other ddx include inflammatory myopathies as CK is markedly elevated, though patient has no muscle pain. 08/30/17 18:30 Case d/w Dr Jones, accepted for Tele admission. Will trend trops Q6 *DC/Admit/Observation/Transfer Diagnosis at time of Disposition: Diastolic CHF Qualifiers: Congestive heart failure chronicity: acute on chronic Qualified Code(s): I50.33 - Acute on chronic diastolic (congestive) heart failure - Discharge Dispostion Admit: Yes - Referrals - Patient Instructions - Post Discharge Activity
[2017-08-30 18:01] LABS: ANISOCYTOSIS 0; MACROCYTOSIS 0; PLATELET ESTIMATE NORMAL; TARGET CELLS 3+
[2017-08-30] MEDS ORDERED: FUROSEMIDE 40 MG/4 ML INJECTABLE VIAL IVPUSH ONE (18:29)
[2017-08-30] MEDS ORDERED: FUROSEMIDE 40 MG/4 ML INJECTABLE VIAL ONE (18:36)
[2017-08-31 07:14] LABS: BASO % 0.6 % (0-2.0); HEMATOCRIT 36.8 % (32.4-45.2); HEMOGLOBIN 11.8 GM/dL (10.7-15.3); LYMPH % 9.5 % (8-40); MCH 24.7 pg (25.7-33.7); MEAN CELL VOLUME 77.3 fl (80-96); MEAN PLT VOLUME 8.8 fl (7.5-11.1); NEUT % 81.9 % (42.8-82.8); PLATELET COUNT 378 K/MM3 (134-434); RBC 4.76 M/mm3 (3.60-5.2); RDW 18.5 % (11.6-15.6); WHITE BLOOD COUNT 8.1 K/mm3 (4.0-10.0)
--- NOTE | 2017-08-31 07:36 | CON.CARD ---
Consult Consult Specialty:: cardiology Reason for Consultation:: shortness of breath; hx CHF, ?myocarditis - History of Present Illness Chief Complaint: Pt denies chest pain or dyspnea. History of Present Illness: 72y black woman with PMHx of rather sudden onset (since April,) of similar signs and symptoms that brought her in today: shortness of breath, orthopnea, and bilateral leg swelling . Pt denies any cp, fever/chills, cough presently. On exam the pt is in no distress; she has +2 pitting edema b/l without any calf tenderness. Today: no rales noted vitals normal cardiac exam unremarkable. On earlier admission (07/2017), pt was found to have elevated TNI and LFTs, low albumen; ECHO showed normal LVEF, with mild-moderate MR and TR, and mild NM, with mild pulmonary HTN. She believes her hands have darkened compared to the rest of her body since 04/2017. She was transferred to [facility], where a coronary angiogram reportedly showed patent coronary arteries. CTA chest 07/26/17 showed acute vs chronic IS thickening; f/u was recommended for 2-3 month later. Pt is followed by Dr. Flores (cardiology). Dr. Jones (IM). - History Source History Provided By: Patient, Medical Record Limitations to Obtaining History: No Limitations - Past Medical History Cardio/Vascular: Yes: HTN Pulmonary: No: Asthma Gastrointestinal: Yes: GERD Hepatobiliary: Yes: Other (elevated LFTS noted 07/28 and again today) Reproductive: Yes: Postmenopausal ...: No Psych: Yes: Anxiety - Past Surgical History Additional Surgical History: coronary angiogram 07/2017 at [facility] - Alcohol/Substance Use Hx Alcohol Use: No - Smoking History Smoking history: Never smoked Have you smoked in the past 12 months: No - Social History Usual Living Arrangement: Alone ADL: Independent History of Recent Travel: No Home Medications - Allergies Allergies/Adverse Reactions: Allergies Allergy/AdvReac Type Severity Reaction Status Date / Time No Known Allergies Allergy Verified 08/31/17 20:41 - Home Medications Home Medications: Ambulatory Orders Amlodipine Besylate 10 mg PO DAILY 07/26/17 Famotidine 20 mg PO DAILY 07/26/17 Triamterene/Hydrochlorothiazid [Triamterene-Hctz 37.5-25 mg Cp] 1 tab PO DAILY 07/26/17 Metoprolol Tartrate [Lopressor -] 12.5 mg PO TID 08/31/17 Family Disease History - Family Disease History Family History: Denies Review of Systems - Review of Systems Constitutional: reports: Weakness Eyes: reports: No Symptoms HENT: reports: No Symptoms Neck: reports: No Symptoms Cardiovascular: reports: Shortness of Breath Respiratory: reports: Exercise Intolerance, SOB, SOB on Exertion Gastrointestinal: reports: Indigestion Genitourinary: reports: No Symptoms Breasts: reports: No Symptoms Reported Musculoskeletal: reports: Muscle Cramps (calves), Muscle Weakness Integumentary: reports: Change in Color (hands are black, and darker than her arm; she believes this is a change since April,, when her other changes began) Psychiatric: reports: Anxiety, Depression - Risk Factors Known Risk Factors: Yes: Age, Hypertension, Physical Inactivity, Race, Other ( diastolic CHF) Vital Signs: Vital Signs Temperature 97.8 F 08/31/17 06:40 Pulse Rate 86 08/31/17 06:40 Respiratory Rate 16 08/31/17 06:40 Blood Pressure 131/67 08/31/17 06:40 O2 Sat by Pulse Oximetry (%) 95 08/31/17 06:40 - Other Data Labs, Other Data: CBC, BMP 08/31/17 05:40 Troponin, BNP 08/30/17 08/30/17 08/30/17 16:30 16:38 22:30 Troponin I 1.76 H* 1.86 H* B-Natriuretic Peptide 8251.19 H Troponin, BNP 08/30/17 08/30/17 08/30/17 16:30 16:38 22:30 Troponin I 1.76 H* 1.86 H* B-Natriuretic Peptide 8251.19 H Problem List - Problems (1) Diastolic CHF Assessment/Plan: No chest pain or shortness of breath presently; no JVP. BNP >8,000 (was about 3,000 in July,). CXR: no acute pathology. ECHO 07/28: normal LVEF, normal wall thickness; mild-moderate MR and TR; mild NM. Bilateral leg edema (CHF; hypoalbuminemia). F/u BUN/Cr, electrolytes, Is and Os, daily weight. Code(s): I50.30 - UNSPECIFIED DIASTOLIC (CONGESTIVE) HEART FAILURE Qualifiers: Congestive heart failure chronicity: acute on chronic Qualified Code(s): I50.33 - Acute on chronic diastolic (congestive) heart failure (2) Elevated LFTs Assessment/Plan: f/u with GI; hepatitis profile. Code(s): R79.89 - OTHER SPECIFIED ABNORMAL FINDINGS OF BLOOD CHEMISTRY (3) HTN (hypertension) Assessment/Plan: on amlodipine and HCTZ/triamterene. Code(s): I10 - ESSENTIAL (PRIMARY) HYPERTENSION (4) SOB (shortness of breath) Code(s): R06.02 - SHORTNESS OF BREATH (5) Elevated troponin Assessment/Plan: noted with similar elevation 07/2017; coronary angiogram at that point reportedly showed nonobstructive CAD. Markedly elevated CK; relative index with CKMB is 4.4. ECHO 07/2017: normal LVEF; no regional wall motiion abnormalities mentioned. Code(s): R74.8 - ABNORMAL LEVELS OF OTHER SERUM ENZYMES (6) Myocarditis Assessment/Plan: Systemic disorder, with no significnat chest pain, but shortniess of breath, orthopnea, bilateral leg edema, and elevated TNI, CK, LFTS, hypoalbuminemia; bilateral IS thickening on chest CTA. Pt's workup will like necessitate cardiac MRI. Code(s): I51.4 - MYOCARDITIS, UNSPECIFIED (7) Hypoalbuminemia Code(s): E88.09 - OTH DISORDERS OF PLASMA-PROTEIN METABOLISM, NEC
[2017-08-31 07:58] LABS: ALBUMIN 1.7 g/dl (3.4-5.0); ANION GAP 8 (8-16); BLOOD UREA NITROGEN 10 mg/dL (7-18); CALCIUM 7.5 mg/dL (8.5-10.1); CHLORIDE 109 mmol/L (98-107); CO2 28 mmol/L (21-32); CREATININE 0.4 mg/dL (0.55-1.02); GLUCOSE,RANDOM 68 mg/dL (74-106); POTASSIUM 3.6 mmol/L (3.5-5.1); SGOT/AST 214 U/L (15-37); SGPT/ALT 205 U/L (12-78); SODIUM 145 mmol/L (136-145)
[2017-08-31 07:59] LABS: ALK PHOS 58 U/L (45-117); BILIRUBIN,TOTAL 0.6 mg/dL (0.2-1.0); TOT PROT 5.4 g/dl (6.4-8.2)
[2017-08-31] MEDS: amLODIPine BESYLATE 10 MG TABLET (FP) PO SCH (12:52)
[2017-08-31] MEDS: FUROSEMIDE 40 MG/4 ML INJECTABLE VIAL IVPUSH SCH (12:52)
[2017-08-31] MEDS: ASPIRIN COATED 81 MG TABLET.EC PO SCH (12:52)
[2017-08-31] MEDS: HEPARIN NA (PORCINE) 5,000 UNITS/ML 1ML VIAL SQ SCH ×2 (12:52→22:46)
[2017-08-31] MEDS: RANITIDINE HCL 150 MG TABLET (FP) PO SCH (12:52)
[2017-08-31] MEDS: TRIAMTERENE AND HCTZ - 37.5 MG/25 MG CAPSULE PO SCH (13:00)
--- NOTE | 2017-08-31 14:55 | HP ---
Admitting History and Physical - Admission History of Present Illness: Pt is a 72 y/o female w/ PMH significant for h/o elevated troponin's/cpk/BNP and was recently admitted to [facility] complaints as this admission wc is mostly SOB/edema and fatigue. Pt was trransferred to [facility] during that hospitalization and had cardiac cath wc was normal. However after discharge pt did not f/u as outpt. Pt also had abnormal ct scan chest. Pt also complains of increased weakness/fatigue and decreased apetitie. Pt does c/o constipation and had appointment for colonoscopy next week. - Past Medical History Cardiovascular: Yes: CHF, HTN Gastrointestinal: Yes: GERD - Past Surgical History Past Surgical History: Yes: None - Smoking History Smoking history: Never smoked Have you smoked in the past 12 months: No - Alcohol/Substance Use Hx Alcohol Use: No - Social History ADL: Independent History of Recent Travel: No Home Medications - Allergies Allergies/Adverse Reactions: Allergies Allergy/AdvReac Type Severity Reaction Status Date / Time No Known Allergies Allergy Verified 08/31/17 20:41 - Home Medications Home Medications: Ambulatory Orders Amlodipine Besylate 10 mg PO DAILY 07/26/17 Famotidine 20 mg PO DAILY 07/26/17 Triamterene/Hydrochlorothiazid [Triamterene-Hctz 37.5-25 mg Cp] 1 tab PO DAILY 07/26/17 Metoprolol Tartrate [Lopressor -] 12.5 mg PO TID 08/31/17 Family Disease History - Family Disease History Family History: Unremarkable Review of Systems - Review of Systems Constitutional: reports: Lethargy, Loss of Appetite, Weakness Eyes: reports: No Symptoms HENT: reports: No Symptoms Neck: reports: No Symptoms Cardiovascular: reports: Shortness of Breath Respiratory: reports: SOB Gastrointestinal: reports: Constipation Physical Examination Vital Signs: Vital Signs Temperature 97.5 F L 08/31/17 10:00 Pulse Rate 82 08/31/17 10:00 Respiratory Rate 16 08/31/17 10:00 Blood Pressure 132/63 08/31/17 10:00 O2 Sat by Pulse Oximetry (%) 100 08/31/17 07:05 Constitutional: Yes: No Distress HENT: Yes: WNL Neck: Yes: WNL, Supple Cardiovascular: Yes: WNL, Regular Rate and Rhythm, Murmur Respiratory: Yes: WNL, Regular, CTA Bilaterally Gastrointestinal: Yes: WNL, Normal Bowel Sounds, Soft Musculoskeletal: Yes: WNL Extremities: Yes: WNL Edema: LLE: Trace, RLE: Trace Neurological: Yes: WNL, Alert, Oriented ...Motor Strength: WNL Labs: CBC, BMP 08/31/17 05:40 08/31/17 05:40 Problem List - Problems (1) Diastolic CHF Assessment/Plan: Acute on chronic diastolic heart failue Diuresis as per cardio BNP > 8000 Code(s): I50.30 - UNSPECIFIED DIASTOLIC (CONGESTIVE) HEART FAILURE Qualifiers: Congestive heart failure chronicity: acute on chronic Qualified Code(s): I50.33 - Acute on chronic diastolic (congestive) heart failure (2) Elevated troponin Assessment/Plan: Pt still w/ elevated troponin Cont to trend Code(s): R74.8 - ABNORMAL LEVELS OF OTHER SERUM ENZYMES (3) Elevated LFTs Code(s): R79.89 - OTHER SPECIFIED ABNORMAL FINDINGS OF BLOOD CHEMISTRY
[2017-08-31 21:17] VITALS: BMI 26.8
--- NOTE | 2017-08-31 23:17 | CON.NEP ---
Consult Consult Specialty:: nephrology Referred by:: ivett Reason for Consultation:: high cpk. heart failure - History of Present Illness Chief Complaint: sob History of Present Illness: seen in er admitted with pulmonary edema she has classic symptoms sob at rest, orthopnea leg edema treated with lasix - Past Medical History Cardio/Vascular: Yes: HTN Gastrointestinal: Yes: GERD ...: No - Past Surgical History Past Surgical History: Yes: None - Alcohol/Substance Use Hx Alcohol Use: No - Smoking History Smoking history: Never smoked Have you smoked in the past 12 months: No - Social History Usual Living Arrangement: Alone ADL: Independent History of Recent Travel: No Home Medications - Allergies Allergies/Adverse Reactions: Allergies Allergy/AdvReac Type Severity Reaction Status Date / Time No Known Allergies Allergy Verified 08/31/17 20:41 - Home Medications Home Medications: Ambulatory Orders Amlodipine Besylate 10 mg PO DAILY 07/26/17 Famotidine 20 mg PO DAILY 07/26/17 Triamterene/Hydrochlorothiazid [Triamterene-Hctz 37.5-25 mg Cp] 1 tab PO DAILY 07/26/17 Metoprolol Tartrate [Lopressor -] 12.5 mg PO TID 08/31/17 Nephrology Consult - Height Height: 5 ft 4 in - Weight Weight: 156 lb 6 oz - BMI Body Mass Index (BMI): 26.8 - Lab Results CBC,BMP: CBC, BMP 08/31/17 05:40 08/31/17 05:40 Anion Gap: Anion Gap Anion Gap 8 (8-16) 08/31/17 05:40 - Physical Examination Vital Signs: Vital Signs Temperature 98 F 08/31/17 20:55 Pulse Rate 89 08/31/17 20:55 Respiratory Rate 22 08/31/17 20:55 Blood Pressure 123/56 08/31/17 20:55 O2 Sat by Pulse Oximetry (%) 97 08/31/17 20:55 Constitutional: Yes: Anxious, Diaphoresis, Mild Distress, Moderate Distress Eyes: Yes: WNL HENT: Yes: WNL Neck: Yes: WNL Cardiovascular: Yes: WNL Respiratory: Yes: WNL Gastrointestinal: Yes: WNL Musculoskeletal: Yes: WNL Edema: Yes Edema: LLE: 2+, RLE: 2+ Integumentary: Yes: WNL Assessment/Plan chf high cpk more related to cardiac injury plan- will eval for rhabdo although less likely not a candidate for hydration which is usual management for rhabdo at this time
[2017-09-01 06:31] LABS: ALBUMIN 1.7 g/dl (3.4-5.0); ANION GAP 6 (8-16); BLOOD UREA NITROGEN 10 mg/dL (7-18); CALCIUM 7.8 mg/dL (8.5-10.1); CHLORIDE 107 mmol/L (98-107); CO2 32 mmol/L (21-32); GLUCOSE,RANDOM 82 mg/dL (74-106); POTASSIUM 3.5 mmol/L (3.5-5.1); SGOT/AST 165 U/L (15-37); SGPT/ALT 179 U/L (12-78); SODIUM 145 mmol/L (136-145)
[2017-09-01 06:34] LABS: ALK PHOS 61 U/L (45-117); BILIRUBIN,TOTAL 0.6 mg/dL (0.2-1.0); CREATININE 0.4 mg/dL (0.55-1.02); TOT PROT 5.3 g/dl (6.4-8.2)
--- NOTE | 2017-09-01 08:53 | PN ---
Progress Note, Physician Chief Complaint: Pt A&Ox3; anxious; no chest pain or shortness of breath at rest. History of Present Illness: 72y black woman with PMHx of rather sudden onset (since April,) of similar signs and symptoms that brought her in today: shortness of breath, orthopnea, and bilateral leg swelling . Pt denies any cp, fever/chills, cough presently. On exam the pt is in no distress; she has +2 pitting edema b/l without any calf tenderness. Today: no rales noted vitals normal cardiac exam unremarkable. On earlier admission (07/2017), pt was found to have elevated TNI and LFTs, low albumen; ECHO showed normal LVEF, with mild-moderate MR and TR, and mild PA, with mild pulmonary HTN. She believes her hands have darkened compared to the rest of her body since 04/2017. She was transferred to [facility], where a coronary angiogram reportedly showed patent coronary arteries. CTA chest 07/26/17 showed acute vs chronic IS thickening; f/u was recommended for 2-3 month later. Pt is followed by Dr. Flores (cardiology). Dr. Jones (IM). - Current Medication List Current Medications: Active Medications Amlodipine Besylate (Norvasc -) 10 mg PO DAILY [facility] Last Admin: 08/31/17 12:52 Dose: 10 mg Aspirin (Ecotrin -) 81 mg PO DAILY [facility] Last Admin: 08/31/17 12:52 Dose: 81 mg Furosemide (Lasix Injection -) 40 mg IVPUSH DAILY [facility] Last Admin: 08/31/17 12:52 Dose: 40 mg Heparin Sodium (Porcine) (Heparin -) 5,000 unit SQ BID [facility] Last Admin: 08/31/17 22:46 Dose: 5,000 unit Ranitidine HCl (Zantac -) 150 mg PO DAILY [facility] Last Admin: 08/31/17 12:52 Dose: 150 mg Triamterene/HCTZ (Dyazide 25/37.5mg) 1 cap PO DAILY [facility] Last Admin: 08/31/17 13:00 Dose: Not Given - Objective Vital Signs: Vital Signs Temperature 98 F 08/31/17 20:55 Pulse Rate 83 09/01/17 08:00 Respiratory Rate 22 09/01/17 08:00 Blood Pressure 129/58 09/01/17 08:00 O2 Sat by Pulse Oximetry (%) 97 08/31/17 20:55 Constitutional: Yes: Anxious, Thin Eyes: Yes: WNL HENT: Yes: WNL Neck: Yes: WNL Cardiovascular: Yes: S1, S2 Respiratory: Yes: Diminished Gastrointestinal: Yes: Soft ...Rectal Exam: Yes: Deferred Genitourinary: No: Anuria Breast(s): Yes: WNL Musculoskeletal: Yes: Muscle Weakness Extremities: Yes: Cool Edema: Yes Edema: LLE: 1+, RLE: 1+ Peripheral Pulses WNL: Yes Integumentary: Yes: Other (hands are darker than rest of arms; pt feels this is a change since April,) Neurological: Yes: Alert, Oriented, Weakness Psychiatric: Yes: Other (anxiety) Labs: CBC, BMP 08/31/17 05:40 09/01/17 05:18 Problem List - Problems (1) Diastolic CHF Assessment/Plan: No chest pain or shortness of breath presently; no JVP. BNP >8,000 (was about 3,000 in July,). CXR: no acute pathology. ECHO 07/28: normal LVEF, normal wall thickness; mild-moderate MR and TR; mild PA. Bilateral leg edema (CHF; hypoalbuminemia). F/u BUN/Cr, electrolytes, Is and Os, daily weight. Code(s): I50.30 - UNSPECIFIED DIASTOLIC (CONGESTIVE) HEART FAILURE Qualifiers: Congestive heart failure chronicity: acute on chronic Qualified Code(s): I50.33 - Acute on chronic diastolic (congestive) heart failure (2) Elevated LFTs Assessment/Plan: f/u with GI; hepatitis profile. Code(s): R79.89 - OTHER SPECIFIED ABNORMAL FINDINGS OF BLOOD CHEMISTRY (3) HTN (hypertension) Assessment/Plan: on amlodipine and HCTZ/triamterene. Code(s): I10 - ESSENTIAL (PRIMARY) HYPERTENSION (4) SOB (shortness of breath) Code(s): R06.02 - SHORTNESS OF BREATH (5) Elevated troponin Assessment/Plan: noted with similar elevation 07/2017; coronary angiogram at that point reportedly showed nonobstructive CAD. Markedly elevated CK; relative index with CKMB is 4.4. ECHO 07/2017: normal LVEF; no regional wall motion abnormalities mentioned. Code(s): R74.8 - ABNORMAL LEVELS OF OTHER SERUM ENZYMES (6) Myocarditis Assessment/Plan: Systemic disorder, with no significnat chest pain, but shortniess of breath, orthopnea, bilateral leg edema, and elevated TNI, CK, LFTS, hypoalbuminemia; bilateral IS thickening on chest CTA. Pt's workup will likely necessitate cardiac MRI. Code(s): I51.4 - MYOCARDITIS, UNSPECIFIED (7) Hypoalbuminemia Code(s): E88.09 - [facility] DISORDERS OF PLASMA-PROTEIN METABOLISM, NEC
[2017-09-01] MEDS ORDERED: PT OWN MED DRAWER 7, Y5N ONE (09:29)
[2017-09-01] MEDS: TRIAMTERENE AND HCTZ - 37.5 MG/25 MG CAPSULE PO SCH (10:09)
[2017-09-01] MEDS: HEPARIN NA (PORCINE) 5,000 UNITS/ML 1ML VIAL SQ SCH ×2 (10:09→22:33)
[2017-09-01] MEDS: ASPIRIN COATED 81 MG TABLET.EC PO SCH (10:09)
[2017-09-01] MEDS: FUROSEMIDE 40 MG/4 ML INJECTABLE VIAL IVPUSH SCH (10:10)
[2017-09-01] MEDS: RANITIDINE HCL 150 MG TABLET (FP) PO SCH (10:10)
[2017-09-01] MEDS: amLODIPine BESYLATE 10 MG TABLET (FP) PO SCH (10:10)
[2017-09-01 10:34] LABS: CHOLESTEROL 121 mg/dL (50-200); HDL CHOLESTEROL 32 mg/dL (40-60); LDL CHOLESTEROL (ONLY SJRH) 75 mg/dL (5-100); TRIGLYCERIDES 110 mg/dL (35-160)
--- NOTE | 2017-09-01 15:53 | PN ---
Progress Note (short form) - Note Progress Note: acute WI high cpk levels r/o rhabdo High TSH hypocalcemia/hypoalbuminemia high lfts Current Medications Amlodipine Besylate (Norvasc -) 10 mg PO DAILY [facility] Last Admin: 09/01/17 10:10 Dose: 10 mg Aspirin (Ecotrin -) 81 mg PO DAILY [facility] Last Admin: 09/01/17 10:09 Dose: 81 mg Furosemide (Lasix Injection -) 40 mg IVPUSH DAILY [facility] Last Admin: 09/01/17 10:10 Dose: 40 mg Heparin Sodium (Porcine) (Heparin -) 5,000 unit SQ BID [facility] Last Admin: 09/01/17 10:09 Dose: 5,000 unit Ranitidine HCl (Zantac -) 150 mg PO DAILY [facility] Last Admin: 09/01/17 10:10 Dose: 150 mg Triamterene/HCTZ (Dyazide 25/37.5mg) 1 cap PO DAILY [facility] Last Admin: 09/01/17 10:09 Dose: 1 cap Last Vital Signs Temp Pulse Resp BP Pulse Ox 98.6 F 92 H 20 126/52 97 09/01/17 14:00 09/01/17 14:00 09/01/17 14:00 09/01/17 14:00 09/01/17 12:00 alert in nad, slighly anxious [place] clear, rare creps heart reg Abd soft Ext mild edema CBC, BMP 08/31/17 05:40 09/01/17 05:18 08/30/17 08/31/17 08/31/17 22:30 05:40 05:40 Calcium 7.5 L AST 214 H ALT 205 H Creatine Kinase 8600 H 7172 H CK-MB (CK-2) 313.551 H 267.606 H Troponin I 1.86 H* 1.75 H* Albumin 1.7 L TSH 09/01/17 05:18 Calcium AST ALT Creatine Kinase CK-MB (CK-2) Troponin I Albumin TSH 6.52 H IMP high cpk 2/2 WI- trending down no evidence of renal injury low likelihood of significant rhabdomyolysis elevated lft's ?liver congestion Hypothyroidism Plan- await u/a results to check for evidence of myoglobinuria follow up bmp for K level in view of lasix use
[2017-09-01] MEDS ORDERED: MAGNESIUM HYDROX 2400MG/30ML ORAL SUSPENSION 30 ML CUP PO ONE (16:17)
--- NOTE | 2017-09-01 18:00 | PN ---
Progress Note, Physician - Current Medication List Current Medications: Active Medications Amlodipine Besylate (Norvasc -) 10 mg PO DAILY [facility] Last Admin: 09/01/17 10:10 Dose: 10 mg Aspirin (Ecotrin -) 81 mg PO DAILY [facility] Last Admin: 09/01/17 10:09 Dose: 81 mg Docusate Sodium (Colace -) 300 mg PO HS [facility] Furosemide (Lasix Injection -) 40 mg IVPUSH DAILY [facility] Last Admin: 09/01/17 10:10 Dose: 40 mg Heparin Sodium (Porcine) (Heparin -) 5,000 unit SQ BID [facility] Last Admin: 09/01/17 10:09 Dose: 5,000 unit Ranitidine HCl (Zantac -) 150 mg PO DAILY [facility] Last Admin: 09/01/17 10:10 Dose: 150 mg Triamterene/HCTZ (Dyazide 25/37.5mg) 1 cap PO DAILY [facility] Last Admin: 09/01/17 10:09 Dose: 1 cap - Objective Vital Signs: Vital Signs Temperature 98.6 F 09/01/17 14:00 Pulse Rate 82 09/01/17 16:00 Respiratory Rate 18 09/01/17 16:00 Blood Pressure 120/64 09/01/17 16:00 O2 Sat by Pulse Oximetry (%) 97 09/01/17 12:00 Labs: CBC, BMP 08/31/17 05:40 09/01/17 05:18 Problem List - Problems (1) Diastolic CHF Code(s): I50.30 - UNSPECIFIED DIASTOLIC (CONGESTIVE) HEART FAILURE Qualifiers: Congestive heart failure chronicity: acute on chronic Qualified Code(s): I50.33 - Acute on chronic diastolic (congestive) heart failure (2) Elevated LFTs Code(s): R79.89 - OTHER SPECIFIED ABNORMAL FINDINGS OF BLOOD CHEMISTRY (3) HTN (hypertension) Code(s): I10 - ESSENTIAL (PRIMARY) HYPERTENSION (4) SOB (shortness of breath) Code(s): R06.02 - SHORTNESS OF BREATH (5) Elevated troponin Code(s): R74.8 - ABNORMAL LEVELS OF OTHER SERUM ENZYMES (6) Myocarditis Code(s): I51.4 - MYOCARDITIS, UNSPECIFIED (7) Hypoalbuminemia Code(s): E88.09 - OTH DISORDERS OF PLASMA-PROTEIN METABOLISM, NEC
--- NOTE | 2017-09-01 20:56 | PN ---
Progress Note, Physician History of Present Illness: Pt c/o fatigue and SOB - Current Medication List Current Medications: Active Medications Amlodipine Besylate (Norvasc -) 10 mg PO DAILY [facility] Last Admin: 09/01/17 10:10 Dose: 10 mg Aspirin (Ecotrin -) 81 mg PO DAILY [facility] Last Admin: 09/01/17 10:09 Dose: 81 mg Docusate Sodium (Colace -) 300 mg PO [facility] Furosemide (Lasix Injection -) 40 mg IVPUSH DAILY [facility] Last Admin: 09/01/17 10:10 Dose: 40 mg Heparin Sodium (Porcine) (Heparin -) 5,000 unit SQ BID [facility] Last Admin: 09/01/17 10:09 Dose: 5,000 unit Ranitidine HCl (Zantac -) 150 mg PO DAILY [facility] Last Admin: 09/01/17 10:10 Dose: 150 mg Triamterene/HCTZ (Dyazide 25/37.5mg) 1 cap PO DAILY [facility] Last Admin: 09/01/17 10:09 Dose: 1 cap - Objective Vital Signs: Vital Signs Temperature 98.6 F 09/01/17 14:00 Pulse Rate 82 09/01/17 16:00 Respiratory Rate 18 09/01/17 19:31 Blood Pressure 120/64 09/01/17 16:00 O2 Sat by Pulse Oximetry (%) 97 09/01/17 19:31 Neck: Yes: WNL, Supple Cardiovascular: Yes: WNL, Regular Rate and Rhythm, Murmur Respiratory: Yes: WNL, Regular, CTA Bilaterally Gastrointestinal: Yes: WNL, Normal Bowel Sounds, Soft Labs: CBC, BMP 08/31/17 05:40 09/01/17 05:18 Problem List - Problems (1) SOB (shortness of breath) Assessment/Plan: Pulmonary consult Due to abnormal ct scan on last admission wc showed interstitial changes Code(s): R06.02 - SHORTNESS OF BREATH (2) Diastolic CHF Assessment/Plan: Acute on chronic diastolic heart failue Diuresis as per cardio BNP > 8000 Code(s): I50.30 - UNSPECIFIED DIASTOLIC (CONGESTIVE) HEART FAILURE Qualifiers: Congestive heart failure chronicity: acute on chronic Qualified Code(s): I50.33 - Acute on chronic diastolic (congestive) heart failure (3) Elevated troponin Assessment/Plan: Pt still w/ elevated troponin Code(s): R74.8 - ABNORMAL LEVELS OF OTHER SERUM ENZYMES (4) Myocarditis Code(s): I51.4 - MYOCARDITIS, UNSPECIFIED (5) Elevated LFTs Assessment/Plan: US on last admission ws normal Check ct scan abd/pelvis GI consult Code(s): R79.89 - OTHER SPECIFIED ABNORMAL FINDINGS OF BLOOD CHEMISTRY (6) HTN (hypertension) Code(s): I10 - ESSENTIAL (PRIMARY) HYPERTENSION
[2017-09-01] MEDS: DOCUSATE SODIUM 100 MG CAPSULE (FP) PO SCH (22:32)
[2017-09-02 06:31] LABS: HEMATOCRIT 37.5 % (32.4-45.2); MCH 24.7 pg (25.7-33.7); MCHC 31.9 g/dl (32.0-36.0); MEAN CELL VOLUME 77.4 fl (80-96); MEAN PLT VOLUME 8.7 fl (7.5-11.1); PLATELET COUNT 385 K/MM3 (134-434); RBC 4.85 M/mm3 (3.60-5.2); RDW 18.2 % (11.6-15.6); WHITE BLOOD COUNT 8.3 K/mm3 (4.0-10.0)
[2017-09-02 06:55] LABS: ALBUMIN 1.7 g/dl (3.4-5.0); ANION GAP 5 (8-16); BLOOD UREA NITROGEN 10 mg/dL (7-18); CALCIUM 7.9 mg/dL (8.5-10.1); CHLORIDE 101 mmol/L (98-107); CO2 35 mmol/L (21-32); GLUCOSE,RANDOM 78 mg/dL (74-106); POTASSIUM 3.7 mmol/L (3.5-5.1); SGPT/ALT 166 U/L (12-78); SODIUM 141 mmol/L (136-145)
[2017-09-02 06:58] LABS: ALK PHOS 61 U/L (45-117); BILIRUBIN,TOTAL 0.6 mg/dL (0.2-1.0); CREATININE 0.4 mg/dL (0.55-1.02); SGOT/AST 163 U/L (15-37); TOT PROT 5.3 g/dl (6.4-8.2)
--- NOTE | 2017-09-02 09:34 | PN ---
Progress Note, Physician History of Present Illness: seen and examined today in nad. states she is feeling slightly better however c/ o constipation and abd discomfort. - Current Medication List Current Medications: Active Medications Amlodipine Besylate (Norvasc -) 10 mg PO DAILY [facility] Last Admin: 09/01/17 10:10 Dose: 10 mg Aspirin (Ecotrin -) 81 mg PO DAILY [facility] Last Admin: 09/01/17 10:09 Dose: 81 mg Docusate Sodium (Colace -) 300 mg PO HS [facility] Last Admin: 09/01/17 22:32 Dose: 300 mg Furosemide (Lasix Injection -) 40 mg IVPUSH DAILY [facility] Last Admin: 09/01/17 10:10 Dose: 40 mg Heparin Sodium (Porcine) (Heparin -) 5,000 unit SQ BID [facility] Last Admin: 09/01/17 22:33 Dose: 5,000 unit Ranitidine HCl (Zantac -) 150 mg PO DAILY [facility] Last Admin: 09/01/17 10:10 Dose: 150 mg Triamterene/HCTZ (Dyazide 25/37.5mg) 1 cap PO DAILY [facility] Last Admin: 09/01/17 10:09 Dose: 1 cap - Objective Vital Signs: Vital Signs Temperature 97.8 F 09/02/17 08:29 Pulse Rate 88 09/02/17 08:29 Respiratory Rate 18 09/02/17 08:29 Blood Pressure 114/52 09/02/17 08:29 O2 Sat by Pulse Oximetry (%) 97 09/01/17 19:31 Constitutional: Yes: No Distress, Calm Eyes: Yes: Conjunctiva Clear, EOM Intact, PERRL HENT: Yes: Atraumatic, Normocephalic Neck: Yes: Supple, Trachea Midline Cardiovascular: Yes: Regular Rate and Rhythm, S1, S2. No: Bradycardia, Tachycardia, Pulse Irregular, Bruit, JVD, Gallop, Murmur, Rub, S3, S4, Varicosities Respiratory: Yes: Regular, Diminished, Rales, Rhonchi. No: SOB, Wheezes Gastrointestinal: Yes: Normal Bowel Sounds, Soft. No: Distention, Tenderness Musculoskeletal: Yes: WNL Extremities: Yes: WNL Edema: LLE: Trace, RLE: Trace Peripheral Pulses WNL: Yes Peripheral Pulses: Left Doralis Pedis: 2+, Right Dorsalis Pedis: 2+ Neurological: Yes: Alert, Oriented Psychiatric: Yes: Alert, Oriented Labs: CBC, BMP 09/02/17 05:43 09/02/17 05:43 - ....Imaging Chest X-ray: Report Reviewed, Image Reviewed EKG: Report Reviewed, Image Reviewed Other: Report Reviewed, Image Reviewed (tele-nsr, pvcs, 5 beats NSVT) Assessment/Plan 72 year old woman h/o HTN, recent admission with SOB, edema, elevated CK/ troponin, LFTs, low albumin sent for cardiac cath which showed normal coronary arteries, presumed myocarditis secondary to other underlying process, now re- admitted with similar symptoms and persistently elevated CK, Trop, LFTs, and low albumin. SOB/edema-Acute Diastolic CHF, possible myocarditis, hypoalbumin with 3rd spacing -recent cardiac cath after last admission showed normal coronary arteries -LV systolic function has been normal -repeat echo to re-evaluate LV function -volume status improving since admission, cont current diuretics for now -recent CTA showed no PE -cardiac enzymes not trending up -cont heparin gtt until cardiac cath -cont ASA 81mg daily -need to clarify why bblocker was stopped and if safe to initiateACE-I/ARB -hold statin for now due to possible rhabdo and elevated LFTs -needs work up for other underlying systemic conditions that could cause myocarditis such as autoimmune, other rheum conditions, malignancy -Rheumatology consult placed -eventually will benefit from cardiac MRI to confirm myocarditis HTN-well controlled -cont current meds for now -will clarify why bblocker stopped
[2017-09-02] MEDS: RANITIDINE HCL 150 MG TABLET (FP) PO SCH (09:41)
[2017-09-02] MEDS: FUROSEMIDE 40 MG/4 ML INJECTABLE VIAL IVPUSH SCH (09:41)
[2017-09-02] MEDS: TRIAMTERENE AND HCTZ - 37.5 MG/25 MG CAPSULE PO SCH (09:41)
[2017-09-02] MEDS: HEPARIN NA (PORCINE) 5,000 UNITS/ML 1ML VIAL SQ SCH ×2 (09:41→21:45)
[2017-09-02] MEDS: ASPIRIN COATED 81 MG TABLET.EC PO SCH (09:41)
[2017-09-02] MEDS: amLODIPine BESYLATE 10 MG TABLET (FP) PO SCH (09:41)
[2017-09-02 10:01] LABS: ANISOCYTOSIS 1+; MACROCYTOSIS 0; PLATELET ESTIMATE NORMAL; TARGET CELLS 1+
--- NOTE | 2017-09-02 13:00 | PN ---
Progress Note, Physician History of Present Illness: Pt seen and examined at bedside. She is awake and appears comfortable. She denies chest pain. She denies dysuria. - Current Medication List Current Medications: Active Medications Amlodipine Besylate (Norvasc -) 10 mg PO DAILY [facility] Last Admin: 09/02/17 09:41 Dose: 10 mg Aspirin (Ecotrin -) 81 mg PO DAILY [facility] Last Admin: 09/02/17 09:41 Dose: 81 mg Docusate Sodium (Colace -) 300 mg PO HS [facility] Last Admin: 09/01/17 22:32 Dose: 300 mg Furosemide (Lasix Injection -) 40 mg IVPUSH DAILY [facility] Last Admin: 09/02/17 09:41 Dose: 40 mg Heparin Sodium (Porcine) (Heparin -) 5,000 unit SQ BID [facility] Last Admin: 09/02/17 09:41 Dose: 5,000 unit Ranitidine HCl (Zantac -) 150 mg PO DAILY [facility] Last Admin: 09/02/17 09:41 Dose: 150 mg Triamterene/HCTZ (Dyazide 25/37.5mg) 1 cap PO DAILY [facility] Last Admin: 09/02/17 09:41 Dose: 1 cap - Objective Vital Signs: Vital Signs Temperature 97.8 F 09/02/17 08:29 Pulse Rate 86 09/02/17 12:00 Respiratory Rate 18 09/02/17 12:00 Blood Pressure 100/58 09/02/17 12:00 O2 Sat by Pulse Oximetry (%) 99 09/02/17 09:00 Constitutional: Yes: Calm Eyes: Yes: Conjunctiva Clear HENT: Yes: Atraumatic Cardiovascular: Yes: S1, S2 Respiratory: Yes: CTA Bilaterally Gastrointestinal: Yes: Soft Genitourinary: Yes: WNL Musculoskeletal: Yes: WNL Edema: Yes Edema: LLE: Trace, RLE: Trace Neurological: Yes: Oriented Psychiatric: Yes: Oriented Labs: CBC, BMP 09/02/17 05:43 09/02/17 05:43 Problem List - Problems (1) Rhabdomyolysis Code(s): M62.82 - RHABDOMYOLYSIS (2) Diastolic CHF Code(s): I50.30 - UNSPECIFIED DIASTOLIC (CONGESTIVE) HEART FAILURE Qualifiers: Congestive heart failure chronicity: acute on chronic Qualified Code(s): I50.33 - Acute on chronic diastolic (congestive) heart failure (3) Elevated troponin Code(s): R74.8 - ABNORMAL LEVELS OF OTHER SERUM ENZYMES (4) HTN (hypertension) Code(s): I10 - ESSENTIAL (PRIMARY) HYPERTENSION Assessment/Plan Current Medications Generic Name Dose Route Start Last Admin Trade Name [place] PRN Reason Stop Dose Admin Amlodipine Besylate 10 mg 08/31/17 10:00 09/02/17 09:41 Norvasc - PO 10 mg DAILY [facility] Administration Aspirin 81 mg 08/31/17 10:00 09/02/17 09:41 Ecotrin - PO 81 mg DAILY [facility] Administration Docusate Sodium 300 mg 09/01/17 22:00 09/01/17 22:32 Colace - PO 300 mg HS [facility] Administration Furosemide 40 mg 08/31/17 10:00 09/02/17 09:41 Lasix Injection - IVPUSH 40 mg DAILY [facility] Administration Heparin Sodium (Porcine) 5,000 unit 08/31/17 10:00 09/02/17 09:41 Heparin - SQ 5,000 unit BID [facility] Administration Ranitidine HCl 150 mg 08/31/17 10:00 09/02/17 09:41 Zantac - PO 150 mg DAILY [facility] Administration Triamterene/HCTZ 1 cap 08/31/17 10:00 09/02/17 09:41 Dyazide 25/37.5mg PO 1 cap DAILY [facility] Administration Impression 1. rhabdo 2. HTN 3. CHF 4. constipation Plan - cpk level is improving - repeat labs in am - check ua - cardiology input appreciated - will follow Dr Chin
--- NOTE | 2017-09-02 15:02 | CON.PULM ---
Consult Consult Specialty:: PULM/CCM Referred by:: CM Reason for Consultation:: SOB - History of Present Illness Chief Complaint: SOB History of Present Illness: 72 F, HTN, previous history of (+) troponin and transaminitis. Admitted via the ER due to sudden onset of symptoms of shortness of breath, orthopnea, and bilateral leg swelling . She denies fever or chills. Some dry cough. No hemoptysis. CXR: CHF / APE pattern. CTA chest 07/26/17 showed acute vs chronic IS thickening. - History Source History Provided By: Patient Limitations to Obtaining History: No Limitations - Past Medical History Cardio/Vascular: Yes: CHF, HTN Pulmonary: No: Asthma Gastrointestinal: Yes: GERD Hepatobiliary: Yes: Other (elevated LFTS noted 07/28 and again today) ...: No Psych: Yes: Anxiety - Past Surgical History Past Surgical History: Yes: None Additional Surgical History: coronary angiogram 07/2017 at [facility] - Alcohol/Substance Use Hx Alcohol Use: No - Smoking History Smoking history: Never smoked Have you smoked in the past 12 months: No - Social History Usual Living Arrangement: Alone ADL: Independent History of Recent Travel: No Home Medications - Allergies Allergies/Adverse Reactions: Allergies Allergy/AdvReac Type Severity Reaction Status Date / Time No Known Allergies Allergy Verified 08/31/17 20:41 - Home Medications Home Medications: Ambulatory Orders Amlodipine Besylate 10 mg PO DAILY 07/26/17 Famotidine 20 mg PO DAILY 07/26/17 Triamterene/Hydrochlorothiazid [Triamterene-Hctz 37.5-25 mg Cp] 1 tab PO DAILY 07/26/17 Metoprolol Tartrate [Lopressor -] 12.5 mg PO TID 08/31/17 Review of Systems - Review of Systems Constitutional: reports: Malaise, Weakness. denies: Chills, Fever, Loss of Appetite, Night Sweats, Unintentional Wgt. Loss Eyes: reports: No Symptoms HENT: reports: No Symptoms Neck: reports: No Symptoms Cardiovascular: reports: Edema, Shortness of Breath. denies: Chest Pain, Palpitations Respiratory: reports: Cough, Orthopnea, SOB, SOB on Exertion. denies: Hemoptysis, Snoring, Wheezing Gastrointestinal: reports: No Symptoms Genitourinary: reports: No Symptoms Breasts: reports: No Symptoms Reported Musculoskeletal: reports: No Symptoms Integumentary: reports: No Symptoms Neurological: reports: No Symptoms Endocrine: reports: No Symptoms Hematology/Lymphatic: reports: No Symptoms Psychiatric: reports: No Symptoms Physical Exam Vital Sings: Vital Signs Temperature 97.8 F 09/02/17 08:29 Pulse Rate 86 09/02/17 12:00 Respiratory Rate 18 09/02/17 12:00 Blood Pressure 100/58 09/02/17 12:00 O2 Sat by Pulse Oximetry (%) 99 09/02/17 09:00 Constitutional: Yes: No Distress, Calm Eyes: Yes: Conjunctiva Clear, EOM Intact HENT: Yes: Atraumatic, Normocephalic Neck: Yes: Supple, Trachea Midline Cardiovascular: Yes: Regular Rate and Rhythm Respiratory: Yes: Cough, Diminished, On Nasal O2, Rales, Rhonchi. No: Accessory Muscle Use, Stridor, Tachypnea, Wheezes ...Inspection: Yes: WNL ...Clubbing: No Gastrointestinal: Yes: Normal Bowel Sounds, Soft Renal/: Yes: WNL Musculoskeletal: Yes: WNL Extremities: Yes: WNL Edema: Yes Peripheral Pulses WNL: Yes Integumentary: Yes: WNL Neurological: Yes: Alert, Oriented ...Motor Strength: WNL Psychiatric: Yes: WNL, Alert, Oriented Labs: CBC, BMP 09/02/17 05:43 09/02/17 05:43 Imaging - Results Chest X-ray: Report Reviewed, Image Reviewed Problem List - Problems (1) Diastolic CHF Code(s): I50.30 - UNSPECIFIED DIASTOLIC (CONGESTIVE) HEART FAILURE Qualifiers: Congestive heart failure chronicity: acute on chronic Qualified Code(s): I50.33 - Acute on chronic diastolic (congestive) heart failure (2) Elevated troponin Code(s): R74.8 - ABNORMAL LEVELS OF OTHER SERUM ENZYMES (3) Hypoalbuminemia Code(s): E88.09 - OTH DISORDERS OF PLASMA-PROTEIN METABOLISM, NEC (4) Myocarditis Code(s): I51.4 - MYOCARDITIS, UNSPECIFIED (5) Rhabdomyolysis Code(s): M62.82 - RHABDOMYOLYSIS (6) Elevated LFTs Code(s): R79.89 - OTHER SPECIFIED ABNORMAL FINDINGS OF BLOOD CHEMISTRY (7) HTN (hypertension) Code(s): I10 - ESSENTIAL (PRIMARY) HYPERTENSION (8) SOB (shortness of breath) Code(s): R06.02 - SHORTNESS OF BREATH Assessment/Plan Lasix IVP daily Daily weight Strict I & O O2 as needed to maintain saturation Monitor off ABX as I doubt infection VTE prophylaxis with SQ Heparin Noted that there was a concern for an auto-immune condition and Rheumatology has been consulted. Will follow Thank you. Dr Knight
--- NOTE | 2017-09-02 19:55 | CON.GI ---
Consult Consult Specialty:: GI Referred by:: Dr Jones - History of Present Illness Chief Complaint: elevated liver enzymes History of Present Illness: 72 y/o F was admitted to the ICU secondary to CHF. On admission she was short of breath and had dyspnea on exertion.On routine labs she was noted to have moderate elevation of her liver enzymes. She denies nausea,vomiting abdominal pain and weight loss. - History Source History Provided By: Patient - Past Medical History Cardio/Vascular: Yes: CHF, HTN Pulmonary: No: Asthma Gastrointestinal: Yes: GERD Hepatobiliary: Yes: Other (elevated LFTS noted 07/28 and again today) ...: No Psych: Yes: Anxiety - Past Surgical History Past Surgical History: Yes: None Additional Surgical History: coronary angiogram 07/2017 at [facility] - Alcohol/Substance Use Hx Alcohol Use: No - Smoking History Smoking history: Never smoked Have you smoked in the past 12 months: No - Social History Usual Living Arrangement: Alone ADL: Independent History of Recent Travel: No Home Medications - Allergies Allergies/Adverse Reactions: Allergies Allergy/AdvReac Type Severity Reaction Status Date / Time No Known Allergies Allergy Verified 08/31/17 20:41 - Home Medications Home Medications: Ambulatory Orders Amlodipine Besylate 10 mg PO DAILY 07/26/17 Famotidine 20 mg PO DAILY 07/26/17 Triamterene/Hydrochlorothiazid [Triamterene-Hctz 37.5-25 mg Cp] 1 tab PO DAILY 07/26/17 Metoprolol Tartrate [Lopressor -] 12.5 mg PO TID 08/31/17 Review of Systems - Review of Systems Constitutional: denies: Fever Eyes: denies: Blind Spots HENT: denies: Difficult Swallowing Neck: denies: Decreased ROM Cardiovascular: denies: Chest Pain Respiratory: denies: Cough Gastrointestinal: denies: Abdominal Pain, Bloating, Constipation, Diarrhea, Dysphagia, Rectal Bleeding, Vomiting, Vomiting Blood Genitourinary: denies: Discharge Physical Exam-GI Vital Signs: Vital Signs Temperature 97.8 F 09/02/17 08:29 Pulse Rate 94 H 09/02/17 16:00 Respiratory Rate 18 09/02/17 19:43 Blood Pressure 122/92 09/02/17 16:00 O2 Sat by Pulse Oximetry (%) 99 09/02/17 19:43 Constitutional: Yes: Well Nourished Eyes: Yes: Conjunctiva Clear HENT: Yes: Atraumatic Neck: Yes: Supple Cardiovascular: Yes: Regular Rate and Rhythm Respiratory: Yes: CTA Bilaterally ...Palpate: Yes: Soft. No: Firm/Rigid, Guarding, Hepatomegaly, Mass, Pulsatile Mass, Splenomegaly, Tenderness Labs: CBC, BMP 09/02/17 05:43 09/02/17 05:43 Hepatic Panel Total Bilirubin 0.6 mg/dL (0.2-1.0) 09/02/17 05:43 AST 163 U/L (15-37) H 09/02/17 05:43 ALT 166 U/L (12-78) H 09/02/17 05:43 Alkaline Phosphatase 61 U/L (45-117) 09/02/17 05:43 Albumin 1.7 g/dl (3.4-5.0) L 09/02/17 05:43 Problem List - Problems (1) Elevated LFTs Assessment/Plan: r/o secondary to chronic passive congestion of the liver and drug hepatoxicity R> serial LFTS if liver enzymes worsen consider to change amlodipine to another class of medication abdominal ultrasound hepatitis profile Code(s): R79.89 - OTHER SPECIFIED ABNORMAL FINDINGS OF BLOOD CHEMISTRY
[2017-09-02 20:15] LABS: URINE APPEARANCE SLCLOUDY; URINE BILIRUBIN NEGATIVE (NEGATIVE); URINE BLOOD 2+ (NEGATIVE); URINE COLOR LTYELLOW; URINE GLUCOSE (UA) NEGATIVE (NEGATIVE); URINE KETONE NEGATIVE (NEGATIVE); URINE LEUK ESTERASE NEGATIVE (NEGATIVE); URINE NITRITE NEGATIVE (NEGATIVE); URINE PROTEIN NEGATIVE (NEGATIVE); URINE UROBILINOGEN NEGATIVE mg/dL (0.2-1.0)
[2017-09-02 20:27] LABS: EPI CELLS FEW /HPF (FEW); URINE HYALINE CAST 6 /lpf; URINE MUCUS RARE
--- NOTE | 2017-09-02 21:42 | PN ---
Progress Note, Physician History of Present Illness: Pt still complaints of some abdominal bloating - Current Medication List Current Medications: Active Medications Amlodipine Besylate (Norvasc -) 10 mg PO DAILY [facility] Last Admin: 09/02/17 09:41 Dose: 10 mg Aspirin (Ecotrin -) 81 mg PO DAILY [facility] Last Admin: 09/02/17 09:41 Dose: 81 mg Docusate Sodium (Colace -) 300 mg PO HS [facility] Last Admin: 09/01/17 22:32 Dose: 300 mg Furosemide (Lasix Injection -) 40 mg IVPUSH DAILY [facility] Last Admin: 09/02/17 09:41 Dose: 40 mg Heparin Sodium (Porcine) (Heparin -) 5,000 unit SQ BID [facility] Last Admin: 09/02/17 09:41 Dose: 5,000 unit Ranitidine HCl (Zantac -) 150 mg PO DAILY [facility] Last Admin: 09/02/17 09:41 Dose: 150 mg Triamterene/HCTZ (Dyazide 25/37.5mg) 1 cap PO DAILY [facility] Last Admin: 09/02/17 09:41 Dose: 1 cap - Objective Vital Signs: Vital Signs Temperature 97.8 F 09/02/17 08:29 Pulse Rate 86 09/02/17 20:00 Respiratory Rate 18 09/02/17 20:00 Blood Pressure 123/61 09/02/17 20:00 O2 Sat by Pulse Oximetry (%) 99 09/02/17 19:43 Constitutional: Yes: Well Nourished Neck: Yes: WNL, Supple Cardiovascular: Yes: WNL, Regular Rate and Rhythm, Murmur Respiratory: Yes: WNL, Regular, CTA Bilaterally Gastrointestinal: Yes: WNL, Normal Bowel Sounds, Soft Musculoskeletal: Yes: WNL Edema: LLE: Trace, RLE: Trace Labs: CBC, BMP 09/02/17 05:43 09/02/17 05:43 Problem List - Problems (1) Abdominal bloating Assessment/Plan: Ct scan abd showed: b/l flank subcutaneous edema/pyelonephritis/stercocal colitis Will start IV ceftriaxone for pyelonephritis Check urine culture ID consult Code(s): R14.0 - ABDOMINAL DISTENSION (GASEOUS) (2) Myocarditis Assessment/Plan: Rheum consult Code(s): I51.4 - MYOCARDITIS, UNSPECIFIED (3) SOB (shortness of breath) Assessment/Plan: Multifactorial CHF(pulmonary vasc congestion) vs Interstitial Lung dz Code(s): R06.02 - SHORTNESS OF BREATH (4) Diastolic CHF Assessment/Plan: Acute on chronic diastolic heart failue Cont diuresis Code(s): I50.30 - UNSPECIFIED DIASTOLIC (CONGESTIVE) HEART FAILURE Qualifiers: Congestive heart failure chronicity: acute on chronic Qualified Code(s): I50.33 - Acute on chronic diastolic (congestive) heart failure (5) Elevated troponin Code(s): R74.8 - ABNORMAL LEVELS OF OTHER SERUM ENZYMES (6) Elevated LFTs Code(s): R79.89 - OTHER SPECIFIED ABNORMAL FINDINGS OF BLOOD CHEMISTRY (7) HTN (hypertension) Code(s): I10 - ESSENTIAL (PRIMARY) HYPERTENSION
--- NOTE | 2017-09-02 21:45 | EKG ---
Test Reason : Blood Pressure : / mmHG Vent. Rate : 086 BPM Atrial Rate : 086 BPM P-R Int : 158 ms QRS Dur : 112 ms QT Int : 390 ms P-R-T Axes : 018 -41 -14 degrees QTc Int : 466 ms SINUS RHYTHM WITH SINUS ARRHYTHMIA WITH OCCASIONAL PREMATURE VENTRICULAR COMPLEXES LEFT AXIS DEVIATION NONSPECIFIC ST AND T WAVE ABNORMALITY ABNORMAL ECG WHEN COMPARED WITH ECG OF 30-AUG-2017 14:30, PREMATURE VENTRICULAR COMPLEXES ARE NOW PRESENT Confirmed by JAYDE VARNER, CORETTA ([id number]) on 09/02/2017 9:44:44 PM Referred By: JARETT JIMÉNEZ DR Confirmed By:CORETTA DONOHUE MD
[2017-09-02] MEDS: DOCUSATE SODIUM 100 MG CAPSULE (FP) PO SCH (21:50)
--- NOTE | 2017-09-02 21:53 | EKG ---
Test Reason : Blood Pressure : / mmHG Vent. Rate : 082 BPM Atrial Rate : 082 BPM P-R Int : 172 ms QRS Dur : 108 ms QT Int : 382 ms P-R-T Axes : 027 -33 006 degrees QTc Int : 446 ms NORMAL SINUS RHYTHM LEFT AXIS DEVIATION NONSPECIFIC T WAVE ABNORMALITY ABNORMAL ECG WHEN COMPARED WITH ECG OF 26-JUL-2017 16:41, VENT. RATE HAS DECREASED Confirmed by CORETTA DONOHUE MD ([id number]) on 09/02/2017 9:53:34 PM Referred By: Confirmed By:CORETTA DONOHUE MD
--- NOTE | 2017-09-02 23:06 | CONSULT ---
Consult Consult Specialty:: Rheumatology - History of Present Illness History of Present Illness: 72 year old woman h/o HTN and GERD admitted with a 2 month history of SOB, peripheral edema and persistent CK elevation. On 07/27/17 the patient was admitted with a 1 month history of SOB, edema, sinus tachycardia with ST depression, and echo showed hyperdynamic LV function and mild pulmonary hypertension. CTA was negative [place] [address] and probably secondary AST and ALT elevation (328 and 321 respectively ) and Tropo I: 1.25. Previously she had been on statins which were discontinued. . She had a cardiac cath that was reported as normal. On 08/30/17 she was readmitted with similar symptoms (gradual onset SOB and bilateral lower extremity swelling, fatigue and worsening orthopnea). She denied recent chest pain, palpitations or cough CK on admission was 9535 and today 5199. AST 163, ALT 166 and Tropo I :1.53. Creatinine 0.4 and urinalysis with blood 2+ and no protein. During the hospital stay she has not have fever, and at the present time she denies chest pain, arthralgia, skin rash, oral ulcers, Raynauds phenomenon or Sicca syndrome. Echocardiogram (09/02/17) reported with no significant change as compared to . LV and RV normal in size and function. - History Source History Provided By: Patient, Medical Record - Past Medical History Cardio/Vascular: Yes: CHF, HTN Pulmonary: No: Asthma Gastrointestinal: Yes: GERD Hepatobiliary: Yes: Other (elevated LFTS noted 07/28 and again today) ...: No Psych: Yes: Anxiety - Past Surgical History Past Surgical History: Yes: None Additional Surgical History: coronary angiogram 07/2017 at [facility] - Alcohol/Substance Use Hx Alcohol Use: No - Smoking History Smoking history: Never smoked Have you smoked in the past 12 months: No - Social History Usual Living Arrangement: Alone ADL: Independent History of Recent Travel: No Home Medications - Allergies Allergies/Adverse Reactions: Allergies Allergy/AdvReac Type Severity Reaction Status Date / Time No Known Allergies Allergy Verified 08/31/17 20:41 - Home Medications Home Medications: Ambulatory Orders Amlodipine Besylate 10 mg PO DAILY 07/26/17 Famotidine 20 mg PO DAILY 07/26/17 Triamterene/Hydrochlorothiazid [Triamterene-Hctz 37.5-25 mg Cp] 1 tab PO DAILY 07/26/17 Metoprolol Tartrate [Lopressor -] 12.5 mg PO TID 08/31/17 Review of Systems - Review of Systems Constitutional: reports: Malaise Eyes: reports: No Symptoms HENT: reports: No Symptoms Neck: reports: No Symptoms Cardiovascular: reports: Shortness of Breath Respiratory: reports: Orthopnea, SOB Gastrointestinal: reports: Constipation Physical Exam Vital Signs: Vital Signs Temperature 97.8 F 09/02/17 08:29 Pulse Rate 86 09/02/17 20:00 Respiratory Rate 09/02/17 20:00 Blood Pressure 123/61 09/02/17 20:00 O2 Sat by Pulse Oximetry (%) 99 09/02/17 19:43 Constitutional: Yes: Mild Distress Eyes: Yes: WNL HENT: Yes: WNL Neck: Yes: WNL Cardiovascular: Yes: S1, S2 Respiratory: Yes: Other (Few crackles in bases) Gastrointestinal: Yes: WNL Musculoskeletal: Yes: Other (No active joints) Labs: CBC, BMP 09/02/17 05:43 09/02/17 05:43 Laboratory Tests 09/01/17 09/02/17 09/02/17 05:18 05:43 18:00 Calcium 7.9 L Total Bilirubin 0.6 AST 163 H ALT 166 H Creatine Kinase 5199 H TSH 6.52 H Urine Color Ltyellow Urine Appearance Slcloudy Urine pH 7.0 Ur Specific Mccamey 1.005 Urine Protein Negative Urine Glucose (UA) Negative Urine Ketones Negative Urine Blood 2+ H Urine Nitrite Negative Urine Bilirubin Negative Urine Urobilinogen Negative Ur Leukocyte Esterase Negative Urine WBC (Auto) 1 Urine RBC (Auto) 1 Problem List - Problems (1) Rhabdomyolysis Assessment/Plan: Probable rhabdomyolysis. Questionable cardiomyopathy, rule out connective disease. Plan I will request serology. I did not prescribe medications. Code(s): M62.82 - RHABDOMYOLYSIS
[2017-09-03 06:20] LABS: HEMATOCRIT 38.8 % (32.4-45.2); HEMOGLOBIN 12.7 GM/dL (10.7-15.3); MCH 25.1 pg (25.7-33.7); MCHC 32.7 g/dl (32.0-36.0); MEAN CELL VOLUME 76.6 fl (80-96); MEAN PLT VOLUME 8.8 fl (7.5-11.1); PLATELET COUNT 368 K/MM3 (134-434); RBC 5.06 M/mm3 (3.60-5.2); RDW 18.2 % (11.6-15.6); WHITE BLOOD COUNT 8.7 K/mm3 (4.0-10.0)
[2017-09-03 06:43] LABS: ALBUMIN 1.8 g/dl (3.4-5.0); ANION GAP 4 (8-16); BLOOD UREA NITROGEN 12 mg/dL (7-18); CALCIUM 7.9 mg/dL (8.5-10.1); CHLORIDE 95 mmol/L (98-107); CO2 37 mmol/L (21-32); GLUCOSE,RANDOM 82 mg/dL (74-106); POTASSIUM 3.8 mmol/L (3.5-5.1); SODIUM 136 mmol/L (136-145)
[2017-09-03 06:47] LABS: ALK PHOS 65 U/L (45-117); BILIRUBIN,TOTAL 0.7 mg/dL (0.2-1.0); CREATININE 0.5 mg/dL (0.55-1.02); SGOT/AST 201 U/L (15-37); SGPT/ALT 182 U/L (12-78); TOT PROT 5.6 g/dl (6.4-8.2)
--- NOTE | 2017-09-03 08:36 | PN ---
Progress Note, Physician Chief Complaint: alert, no distress TELE: NSR, PVCs, occasional pattern Bigeminy - Current Medication List Current Medications: Active Medications Amlodipine Besylate (Norvasc -) 10 mg PO DAILY [facility] Last Admin: 09/02/17 09:41 Dose: 10 mg Aspirin (Ecotrin -) 81 mg PO DAILY [facility] Last Admin: 09/02/17 09:41 Dose: 81 mg Docusate Sodium (Colace -) 300 mg PO HS [facility] Last Admin: 09/02/17 21:50 Dose: 300 mg Furosemide (Lasix Injection -) 40 mg IVPUSH DAILY [facility] Last Admin: 09/02/17 09:41 Dose: 40 mg Heparin Sodium (Porcine) (Heparin -) 5,000 unit SQ BID [facility] Last Admin: 09/02/17 21:45 Dose: 5,000 unit CEFTRIAXONE 1 G/50 ML PREMIX (Ceftriaxone 1 Gm-D5w Bag) 50 mls @ 100 mls/hr IVPB DAILY [facility] Ranitidine HCl (Zantac -) 150 mg PO DAILY [facility] Last Admin: 09/02/17 09:41 Dose: 150 mg Triamterene/HCTZ (Dyazide 25/37.5mg) 1 cap PO DAILY [facility] Last Admin: 09/02/17 09:41 Dose: 1 cap - Objective Vital Signs: Vital Signs Temperature 98.4 F 09/03/17 00:00 Pulse Rate 79 09/03/17 00:00 Respiratory Rate 18 09/03/17 04:00 Blood Pressure 106/55 09/03/17 04:00 O2 Sat by Pulse Oximetry (%) 99 09/02/17 19:43 Constitutional: Yes: No Distress Cardiovascular: Yes: Regular Rate and Rhythm Respiratory: Yes: CTA Bilaterally Gastrointestinal: Yes: Soft (nontender) Edema: No Neurological: Yes: Alert, Oriented Labs: CBC, BMP 09/03/17 05:25 09/03/17 05:25 Laboratory Tests 09/01/17 09/02/17 09/03/17 05:18 05:43 05:25 WBC Hgb Plt Count Potassium BUN Creatinine AST ALT Alkaline Phosphatase 61 Creatine Kinase 5199 H Troponin I 1.57 H* Albumin Free T3 1.5 L AINSLEY M-Neptali Pending Double Strand DNA Ab Pending Tot Complement (CH50) Pending 01/23/18 01/23/18 05:25 05:25 WBC 8.7 Hgb 12.7 Plt Count 368 Potassium 3.8 BUN 12 Creatinine 0.5 L AST 201 H ALT 182 H Alkaline Phosphatase Creatine Kinase Troponin I Albumin 1.8 L Free T3 AINSLEY M-Neptali Double Strand DNA Ab Tot Complement (CH50) - ....Imaging Chest X-ray: Report Reviewed EKG: Report Reviewed Assessment/Plan Assessment/Plan 72 year old woman h/o HTN, recent admission with SOB, edema, elevated CK/ troponin, LFTs, low albumin sent for cardiac cath which showed normal coronary arteries, presumed myocarditis secondary to other underlying process, now re- admitted with similar symptoms and persistently elevated CK, Trop, LFTs, and low albumin. SOB/edema-Acute Diastolic CHF, possible myocarditis, hypoalbumin with 3rd spacing -recent cardiac cath after last admission showed normal coronary arteries -LV systolic function has been normal including on repeat echo this admission -volume status improving since admission, cont current diuretics for now -recent CTA showed no PE -cardiac enzymes not trending up, unclear source of elevated CPK -cont ASA 81mg daily -need to clarify why bblocker was stopped and if safe to initiateACE-I/ARB -hold statin for now due to possible rhabdo and elevated LFTs -needs work up for other underlying systemic conditions that could cause myocarditis such as autoimmune, malignancy, HIV? -Rheumatology consult placed -eventually will benefit from cardiac MRI to confirm myocarditis
[2017-09-03] MEDS ORDERED: CEFTRIAXONE 1 G/50 ML PREMIX 50 ML IVPB SCH (10:00)
[2017-09-03] MEDS: HEPARIN NA (PORCINE) 5,000 UNITS/ML 1ML VIAL SQ SCH ×2 (11:31→22:42)
[2017-09-03] MEDS: ASPIRIN COATED 81 MG TABLET.EC PO SCH (11:31)
[2017-09-03] MEDS: RANITIDINE HCL 150 MG TABLET (FP) PO SCH (11:31)
[2017-09-03] MEDS: amLODIPine BESYLATE 10 MG TABLET (FP) PO SCH (11:31)
[2017-09-03] MEDS: FUROSEMIDE 40 MG/4 ML INJECTABLE VIAL IVPUSH SCH (11:32)
[2017-09-03] MEDS ORDERED: PT OWN MED DRAWER 7, Y5N ONE (11:35)
[2017-09-03] MEDS: TRIAMTERENE AND HCTZ - 37.5 MG/25 MG CAPSULE PO SCH (11:38)
[2017-09-03] MEDS ORDERED: HEMOQUE TEST 1 EACH EACH ONE (12:29)
--- NOTE | 2017-09-03 14:51 | CON.ID ---
Consult Consult Specialty:: myocarditis,pna,uti Referred by:: Reason for Consultation:: r/o infectious process - History of Present Illness Chief Complaint: breathing difficuilty History of Present Illness: this is a 72 y/o female has known h/o of htn and gerd admited to the hospital because of persistent sob since last couple of months,currently she mentions that she is feeling much better and has no specific complaints she has had previous admission wiht cardiac symptoms of st depression and also had cath done which had been normal her admissions also included swelling of the legs her labs were abnormal on admission especially her ck and lft which have trended up since admission also her ckmb has increased her urine which was normal is now showing leukoesterase which has become positive patient at this moment seems comfortable and says she feels well she also mentions one interesting factor that her hands are slightly darker - History Source History Provided By: Patient, Medical Record Limitations to Obtaining History: Poor Historian - Past Medical History Cardio/Vascular: Yes: CHF, HTN Pulmonary: No: Asthma Gastrointestinal: Yes: GERD Hepatobiliary: Yes: Other (elevated LFTS noted 07/28 and again today) ...: No Psych: Yes: Anxiety - Past Surgical History Past Surgical History: Yes: None Additional Surgical History: coronary angiogram 07/2017 at [facility] - Alcohol/Substance Use Hx Alcohol Use: No - Smoking History Smoking history: Never smoked Have you smoked in the past 12 months: No - Social History Usual Living Arrangement: Alone ADL: Independent History of Recent Travel: No Home Medications - Allergies Allergies/Adverse Reactions: Allergies Allergy/AdvReac Type Severity Reaction Status Date / Time No Known Allergies Allergy Verified 08/31/17 20:41 - Home Medications Home Medications: Ambulatory Orders Amlodipine Besylate 10 mg PO DAILY 07/26/17 Famotidine 20 mg PO DAILY 07/26/17 Triamterene/Hydrochlorothiazid [Triamterene-Hctz 37.5-25 mg Cp] 1 tab PO DAILY 07/26/17 Metoprolol Tartrate [Lopressor -] 12.5 mg PO TID 08/31/17 Review of Systems - Review of Systems Constitutional: reports: Weakness Eyes: reports: No Symptoms HENT: reports: No Symptoms Neck: reports: No Symptoms Cardiovascular: reports: No Symptoms Respiratory: reports: SOB, SOB on Exertion Gastrointestinal: reports: No Symptoms Genitourinary: reports: No Symptoms Breasts: reports: No Symptoms Reported Musculoskeletal: reports: No Symptoms Integumentary: reports: No Symptoms Neurological: reports: No Symptoms Endocrine: reports: No Symptoms Hematology/Lymphatic: reports: No Symptoms Psychiatric: reports: No Symptoms Physical Exam Vital Signs: Vital Signs Temperature 98.0 F 09/03/17 10:00 Pulse Rate 82 09/03/17 10:00 Respiratory Rate 18 09/03/17 10:00 Blood Pressure 115/52 09/03/17 10:00 O2 Sat by Pulse Oximetry (%) 99 09/02/17 19:43 Constitutional: Yes: No Distress, Calm Eyes: Yes: Conjunctiva Clear HENT: Yes: Atraumatic, Normocephalic Cardiovascular: Yes: Regular Rate and Rhythm Respiratory: Yes: Regular, CTA Bilaterally Gastrointestinal: Yes: Normal Bowel Sounds, Soft Musculoskeletal: Yes: Other Extremities: Yes: Other Edema: LLE: Trace, RLE: Trace Integumentary: Yes: Other Neurological: Yes: Alert, Oriented Psychiatric: Yes: Alert, Oriented Labs: CBC, BMP 09/03/17 05:25 09/03/17 05:25 Imaging - Results Chest X-ray: Report Reviewed, Image Reviewed Cat Scan: Report Reviewed, Image Reviewed Assessment/Plan after looking at the picture at this moment i do not see any infective picture and i think because of such high ck there might be a chance of rhabdo leukoesterase has become positive and i suspect this might be due to the findings there is some pathology going on which i do think is affecting the muscles,i thik i have low suspicion for infectious process though a thought process of myocarditis is present rheumatology is already on the case Problem List - Problems (1) Diastolic CHF Code(s): I50.30 - UNSPECIFIED DIASTOLIC (CONGESTIVE) HEART FAILURE Qualifiers: Congestive heart failure chronicity: acute on chronic Qualified Code(s): I50.33 - Acute on chronic diastolic (congestive) heart failure (2) Elevated troponin Code(s): R74.8 - ABNORMAL LEVELS OF OTHER SERUM ENZYMES (3) Hypoalbuminemia Code(s): E88.09 - OTH DISORDERS OF PLASMA-PROTEIN METABOLISM, NEC (4) Myocarditis Code(s): I51.4 - MYOCARDITIS, UNSPECIFIED (5) Rhabdomyolysis Code(s): M62.82 - RHABDOMYOLYSIS (6) Elevated LFTs Code(s): R79.89 - OTHER SPECIFIED ABNORMAL FINDINGS OF BLOOD CHEMISTRY (7) HTN (hypertension) Code(s): I10 - ESSENTIAL (PRIMARY) HYPERTENSION (8) SOB (shortness of breath) Code(s): R06.02 - SHORTNESS OF BREATH looking at the complete picture i do not know but a thought process is that if the muscle biopsy might be helpful plan will stop abx for now await for urine cx report also i think the kidneys should be kept flushed as there is a chance they might go into failure rest continue as per various teams close monitoring
--- NOTE | 2017-09-03 15:04 | PN ---
Progress Note, Physician History of Present Illness: Pt seen and examined at bedside. She is awake and alert. She denies shortness of breath. She denies chest pain. - Current Medication List Current Medications: Active Medications Amlodipine Besylate (Norvasc -) 10 mg PO DAILY [facility] Last Admin: 09/03/17 11:31 Dose: 10 mg Aspirin (Ecotrin -) 81 mg PO DAILY [facility] Last Admin: 09/03/17 11:31 Dose: 81 mg Docusate Sodium (Colace -) 300 mg PO HS [facility] Last Admin: 09/02/17 21:50 Dose: 300 mg Furosemide (Lasix Injection -) 40 mg IVPUSH DAILY [facility] Last Admin: 09/03/17 11:32 Dose: 40 mg Heparin Sodium (Porcine) (Heparin -) 5,000 unit SQ BID [facility] Last Admin: 09/03/17 11:31 Dose: 5,000 unit CEFTRIAXONE 1 G/50 ML PREMIX (Ceftriaxone 1 Gm-D5w Bag) 50 mls @ 100 mls/hr IVPB DAILY [facility] Last Admin: 09/03/17 11:32 Dose: 100 mls/hr Ranitidine HCl (Zantac -) 150 mg PO DAILY [facility] Last Admin: 09/03/17 11:31 Dose: 150 mg Triamterene/HCTZ (Dyazide 25/37.5mg) 1 cap PO DAILY [facility] Last Admin: 09/03/17 11:38 Dose: 1 cap - Objective Vital Signs: Vital Signs Temperature 98.0 F 09/03/17 10:00 Pulse Rate 82 09/03/17 10:00 Respiratory Rate 18 09/03/17 10:00 Blood Pressure 115/52 09/03/17 10:00 O2 Sat by Pulse Oximetry (%) 99 09/02/17 19:43 Constitutional: Yes: Calm Eyes: Yes: Conjunctiva Clear HENT: Yes: Atraumatic Neck: Yes: Supple Cardiovascular: Yes: S1, S2 Respiratory: Yes: CTA Bilaterally Gastrointestinal: Yes: Soft Genitourinary: Yes: WNL Musculoskeletal: Yes: WNL Edema: Yes Edema: LLE: Trace, RLE: Trace Neurological: Yes: Oriented Psychiatric: Yes: Oriented Labs: CBC, BMP 09/03/17 05:25 09/03/17 05:25 Problem List - Problems (1) Rhabdomyolysis Code(s): M62.82 - RHABDOMYOLYSIS (2) Diastolic CHF Code(s): I50.30 - UNSPECIFIED DIASTOLIC (CONGESTIVE) HEART FAILURE Qualifiers: Congestive heart failure chronicity: acute on chronic Qualified Code(s): I50.33 - Acute on chronic diastolic (congestive) heart failure (3) Elevated troponin Code(s): R74.8 - ABNORMAL LEVELS OF OTHER SERUM ENZYMES (4) HTN (hypertension) Code(s): I10 - ESSENTIAL (PRIMARY) HYPERTENSION Assessment/Plan Current Medications Generic Name Dose Route Start Last Admin Trade Name [place] PRN Reason Stop Dose Admin Amlodipine Besylate 10 mg 08/31/17 10:00 09/03/17 11:31 Norvasc - PO 10 mg DAILY [facility] Administration Aspirin 81 mg 08/31/17 10:00 09/03/17 11:31 Ecotrin - PO 81 mg DAILY [facility] Administration Docusate Sodium 300 mg 09/01/17 22:00 09/02/17 21:50 Colace - PO 300 mg HS [facility] Administration Furosemide 40 mg 08/31/17 10:00 09/03/17 11:32 Lasix Injection - IVPUSH 40 mg DAILY [facility] Administration Heparin Sodium (Porcine) 5,000 unit 08/31/17 10:00 09/03/17 11:31 Heparin - SQ 5,000 unit BID [facility] Administration CEFTRIAXONE 1 G/50 ML PREMIX 50 mls @ 100 mls/hr 09/03/17 10:00 09/03/17 11: 32 Ceftriaxone 1 Gm-D5w Bag IVPB 100 mls/hr DAILY [facility] Administration Ranitidine HCl 150 mg 08/31/17 10:00 09/03/17 11:31 Zantac - PO 150 mg DAILY [facility] Administration Triamterene/HCTZ 1 cap 08/31/17 10:00 09/03/17 11:38 Dyazide 25/37.5mg PO 1 cap DAILY [facility] Administration Laboratory Tests 09/02/17 09/03/17 09/03/17 18:00 05:25 05:25 Creatine Kinase 6277 H Urine Blood 2+ H AINSLEY M-Neptali Pending Double Strand DNA Ab Pending Tot Complement (CH50) Pending Impression 1. rhabdo 2. HTN 3. CHF 4. constipation 5. microscopic hematuria Plan - cpk is worse today - consider holding dose of lasix tomorro - check cxr - rheumatology input appreciated - repeat labs in am - cardiology input appreciated - will follow Dr Chin
[2017-09-03 15:19] LABS: URINE APPEARANCE CLOUDY; URINE BILIRUBIN NEGATIVE (NEGATIVE); URINE BLOOD 2+ (NEGATIVE); URINE COLOR YELLOW; URINE GLUCOSE (UA) NEGATIVE (NEGATIVE); URINE KETONE NEGATIVE (NEGATIVE); URINE NITRITE NEGATIVE (NEGATIVE); URINE PROTEIN NEGATIVE (NEGATIVE); URINE UROBILINOGEN NEGATIVE mg/dL (0.2-1.0)
[2017-09-03 15:23] LABS: URINE LEUK ESTERASE 3+ (NEGATIVE)
[2017-09-03 15:25] LABS: TARGET CELLS 1+
[2017-09-03 15:58] LABS: EPI CELLS RARE /HPF (FEW); URINE BACTERIA MODERATE /hpf (NONE SEEN); URINE MUCUS RARE
--- NOTE | 2017-09-03 17:27 | PN ---
Progress Note (short form) - Note Progress Note: Breathing feels OK today. No CP or SOB. No acute events overnight. Intake & Output 08/31/17 09/01/17 09/02/17 09/03/17 23:59 23:59 23:59 23:59 Intake Total 360 1120 240 150 Output Total 1100 0 Balance 360 20 240 150 Weight 156 lb 6 oz 156 lb 6 oz Last Vital Signs Temp Pulse Resp BP Pulse Ox 98.0 F 82 18 115/52 99 09/03/17 10:00 09/03/17 10:00 09/03/17 10:00 09/03/17 10:00 09/03/17 09:20 Active Medications Amlodipine Besylate (Norvasc -) 10 mg PO DAILY [facility] Last Admin: 09/03/17 11:31 Dose: 10 mg Aspirin (Ecotrin -) 81 mg PO DAILY [facility] Last Admin: 09/03/17 11:31 Dose: 81 mg Docusate Sodium (Colace -) 300 mg PO HS [facility] Last Admin: 09/02/17 21:50 Dose: 300 mg Furosemide (Lasix Injection -) 40 mg IVPUSH DAILY [facility] Last Admin: 09/03/17 11:32 Dose: 40 mg Heparin Sodium (Porcine) (Heparin -) 5,000 unit SQ BID [facility] Last Admin: 09/03/17 11:31 Dose: 5,000 unit CEFTRIAXONE 1 G/50 ML PREMIX (Ceftriaxone 1 Gm-D5w Bag) 50 mls @ 100 mls/hr IVPB DAILY [facility] Last Admin: 09/03/17 11:32 Dose: 100 mls/hr Ranitidine HCl (Zantac -) 150 mg PO DAILY [facility] Last Admin: 09/03/17 11:31 Dose: 150 mg Triamterene/HCTZ (Dyazide 25/37.5mg) 1 cap PO DAILY [facility] Last Admin: 09/03/17 11:38 Dose: 1 cap Constitutional: Yes: No Distress, Calm Eyes: Yes: Conjunctiva Clear, EOM Intact HENT: Yes: Atraumatic, Normocephalic Neck: Yes: Supple, Trachea Midline Cardiovascular: Yes: Regular Rate and Rhythm Respiratory: Yes: Cough, Diminished, On Nasal O2, Rales, Rhonchi. No: Accessory Muscle Use, Stridor, Tachypnea, Wheezes ...Inspection: Yes: WNL ...Clubbing: No Gastrointestinal: Yes: Normal Bowel Sounds, Soft Renal/: Yes: WNL Musculoskeletal: Yes: WNL Extremities: Yes: WNL Edema: Yes Peripheral Pulses WNL: Yes Integumentary: Yes: WNL Neurological: Yes: Alert, Oriented ...Motor Strength: WNL Psychiatric: Yes: WNL, Alert, Oriented Labs: Problem List - Problems (1) Diastolic CHF Code(s): I50.30 - UNSPECIFIED DIASTOLIC (CONGESTIVE) HEART FAILURE Qualifiers: Congestive heart failure chronicity: acute on chronic Qualified Code(s): I50.33 - Acute on chronic diastolic (congestive) heart failure (2) Elevated troponin Code(s): R74.8 - ABNORMAL LEVELS OF OTHER SERUM ENZYMES (3) Hypoalbuminemia Code(s): E88.09 - OTH DISORDERS OF PLASMA-PROTEIN METABOLISM, NEC (4) Myocarditis Code(s): I51.4 - MYOCARDITIS, UNSPECIFIED (5) Rhabdomyolysis Code(s): M62.82 - RHABDOMYOLYSIS (6) Elevated LFTs Code(s): R79.89 - OTHER SPECIFIED ABNORMAL FINDINGS OF BLOOD CHEMISTRY (7) HTN (hypertension) Code(s): I10 - ESSENTIAL (PRIMARY) HYPERTENSION (8) SOB (shortness of breath) Code(s): R06.02 - SHORTNESS OF BREATH Assessment/Plan Lasix as tolerated Daily weight Strict I & O O2 as needed to maintain saturation Noted empiric ABX and ID consult has been called : I doubt pulmonary infection VTE prophylaxis with SQ Heparin Serology has been ordered as there is a concern for an auto-immune condition Dr Knight Problem List - Problems (1) Diastolic CHF Code(s): I50.30 - UNSPECIFIED DIASTOLIC (CONGESTIVE) HEART FAILURE Qualifiers: Congestive heart failure chronicity: acute on chronic Qualified Code(s): I50.33 - Acute on chronic diastolic (congestive) heart failure (2) Elevated troponin Code(s): R74.8 - ABNORMAL LEVELS OF OTHER SERUM ENZYMES (3) Hypoalbuminemia Code(s): E88.09 - OTH DISORDERS OF PLASMA-PROTEIN METABOLISM, NEC (4) Myocarditis Code(s): I51.4 - MYOCARDITIS, UNSPECIFIED (5) Rhabdomyolysis Code(s): M62.82 - RHABDOMYOLYSIS (6) Elevated LFTs Code(s): R79.89 - OTHER SPECIFIED ABNORMAL FINDINGS OF BLOOD CHEMISTRY (7) HTN (hypertension) Code(s): I10 - ESSENTIAL (PRIMARY) HYPERTENSION (8) SOB (shortness of breath) Code(s): R06.02 - SHORTNESS OF BREATH
[2017-09-03] MEDS: DOCUSATE SODIUM 100 MG CAPSULE (FP) PO SCH (22:42)
--- NOTE | 2017-09-03 23:05 | PN ---
Progress Note, Physician - Current Medication List Current Medications: Active Medications Amlodipine Besylate (Norvasc -) 10 mg PO DAILY [facility] Last Admin: 09/03/17 11:31 Dose: 10 mg Aspirin (Ecotrin -) 81 mg PO DAILY [facility] Last Admin: 09/03/17 11:31 Dose: 81 mg Docusate Sodium (Colace -) 300 mg PO HS [facility] Last Admin: 09/03/17 22:42 Dose: 300 mg Furosemide (Lasix Injection -) 40 mg IVPUSH DAILY [facility] Last Admin: 09/03/17 11:32 Dose: 40 mg Heparin Sodium (Porcine) (Heparin -) 5,000 unit SQ BID [facility] Last Admin: 09/03/17 22:42 Dose: 5,000 unit Ranitidine HCl (Zantac -) 150 mg PO DAILY [facility] Last Admin: 09/03/17 11:31 Dose: 150 mg Triamterene/HCTZ (Dyazide 25/37.5mg) 1 cap PO DAILY [facility] Last Admin: 09/03/17 11:38 Dose: 1 cap - Objective Vital Signs: Vital Signs Temperature 98.6 F 09/03/17 16:00 Pulse Rate 88 09/03/17 16:00 Respiratory Rate 20 09/03/17 16:00 Blood Pressure 123/58 09/03/17 16:00 O2 Sat by Pulse Oximetry (%) 99 09/03/17 09:20 Labs: CBC, BMP 09/03/17 05:25 09/03/17 05:25 Problem List - Problems (1) Abdominal bloating Code(s): R14.0 - ABDOMINAL DISTENSION (GASEOUS) (2) Myocarditis Code(s): I51.4 - MYOCARDITIS, UNSPECIFIED (3) SOB (shortness of breath) Code(s): R06.02 - SHORTNESS OF BREATH (4) Diastolic CHF Code(s): I50.30 - UNSPECIFIED DIASTOLIC (CONGESTIVE) HEART FAILURE Qualifiers: Congestive heart failure chronicity: acute on chronic Qualified Code(s): I50.33 - Acute on chronic diastolic (congestive) heart failure (5) Elevated troponin Code(s): R74.8 - ABNORMAL LEVELS OF OTHER SERUM ENZYMES (6) Elevated LFTs Code(s): R79.89 - OTHER SPECIFIED ABNORMAL FINDINGS OF BLOOD CHEMISTRY (7) HTN (hypertension) Code(s): I10 - ESSENTIAL (PRIMARY) HYPERTENSION
[2017-09-03] MEDS: SENNOSIDES 8.6MG TABLET (FP) PO SCH (23:28)
[2017-09-04 07:17] LABS: ANION GAP 8 (8-16); BLOOD UREA NITROGEN 16 mg/dL (7-18); CALCIUM 8.3 mg/dL (8.5-10.1); CHLORIDE 89 mmol/L (98-107); CO2 37 mmol/L (21-32); CREATININE 0.5 mg/dL (0.55-1.02); GLUCOSE,RANDOM 82 mg/dL (74-106); POTASSIUM 3.8 mmol/L (3.5-5.1); SODIUM 134 mmol/L (136-145)
[2017-09-04 08:10] LABS: INR 1.02 (0.82-1.09); PROTHROMBIN TIME (PATIENT) 11.5 SEC (9.98-11.88)
[2017-09-04 08:11] LABS: ACTIVATED PTT 29.1 SECONDS (26.9-34.4)
--- NOTE | 2017-09-04 08:33 | PN ---
Progress Note, Physician Chief Complaint: comfortable, no distress History of Present Illness: TELE: NSR, PVCs - Current Medication List Current Medications: Active Medications Amlodipine Besylate (Norvasc -) 10 mg PO DAILY [facility] Last Admin: 09/03/17 11:31 Dose: 10 mg Aspirin (Ecotrin -) 81 mg PO DAILY [facility] Last Admin: 09/03/17 11:31 Dose: 81 mg Docusate Sodium (Colace -) 300 mg PO HS [facility] Last Admin: 09/03/17 22:42 Dose: 300 mg Furosemide (Lasix Injection -) 40 mg IVPUSH DAILY [facility] Last Admin: 09/03/17 11:32 Dose: 40 mg Heparin Sodium (Porcine) (Heparin -) 5,000 unit SQ BID [facility] Last Admin: 09/03/17 22:42 Dose: 5,000 unit Ranitidine HCl (Zantac -) 150 mg PO DAILY [facility] Last Admin: 09/03/17 11:31 Dose: 150 mg Senna (Senna -) 1 tab PO BID [facility] Last Admin: 09/03/17 23:28 Dose: 1 tab Triamterene/HCTZ (Dyazide 25/37.5mg) 1 cap PO DAILY [facility] Last Admin: 09/03/17 11:38 Dose: 1 cap - Objective Vital Signs: Vital Signs Temperature 98.6 F 09/04/17 08:10 Pulse Rate 86 09/04/17 08:10 Respiratory Rate 20 09/04/17 08:14 Blood Pressure 113/61 09/04/17 08:10 O2 Sat by Pulse Oximetry (%) 100 09/04/17 08:14 Constitutional: Yes: No Distress Eyes: Yes: Conjunctiva Clear Cardiovascular: Yes: Regular Rate and Rhythm Respiratory: Yes: Other (slightly decreased breath sounds at bases bilaterally) Gastrointestinal: Yes: Soft Edema: Yes Edema: LLE: 1+, RLE: 1+ Neurological: Yes: Alert, Oriented Labs: CBC, BMP 09/03/17 05:25 09/04/17 06:35 Laboratory Tests 09/04/17 06:35 Sodium 134 L Potassium 3.8 BUN 16 Creatinine 0.5 L Creatine Kinase 5194 H - ....Imaging EKG: Image Reviewed Assessment/Plan 72 year old woman h/o HTN, recent admission with SOB, edema, elevated CK/ troponin, LFTs, low albumin sent for cardiac cath which showed normal coronary arteries, presumed myocarditis secondary to other underlying process, now re- admitted with similar symptoms and persistently elevated CK, Trop, LFTs, and low albumin. SOB/edema-Acute Diastolic CHF, possible myocarditis, hypoalbumin with 3rd spacing -recent cardiac cath after last admission showed normal coronary arteries -LV systolic function has been normal including on repeat echo this admission -volume status improving since admission, cont current diuretics for now -recent CTA showed no PE -cardiac enzymes not trending up, unclear source of elevated CPK -cont ASA 81mg daily -needs work up for other underlying systemic conditions that could cause myocarditis such as autoimmune, malignancy, HIV?
[2017-09-04] MEDS ORDERED: PT OWN MED DRAWER 7, Y5N ONE (08:40)
[2017-09-04] MEDS: SENNOSIDES 8.6MG TABLET (FP) PO SCH ×3 (09:21→21:35)
[2017-09-04] MEDS: HEPARIN NA (PORCINE) 5,000 UNITS/ML 1ML VIAL SQ SCH ×2 (09:21→21:34)
[2017-09-04] MEDS: FUROSEMIDE 40 MG/4 ML INJECTABLE VIAL IVPUSH SCH (09:21)
[2017-09-04] MEDS: RANITIDINE HCL 150 MG TABLET (FP) PO SCH (09:22)
[2017-09-04] MEDS: TRIAMTERENE AND HCTZ - 37.5 MG/25 MG CAPSULE PO SCH (09:22)
[2017-09-04] MEDS: amLODIPine BESYLATE 10 MG TABLET (FP) PO SCH (09:22)
[2017-09-04] MEDS: ASPIRIN COATED 81 MG TABLET.EC PO SCH (09:22)
--- NOTE | 2017-09-04 11:51 | PN ---
Progress Note, Physician History of Present Illness: Pt seen and examined at bedside. She is awake and appears comfortable. She denies shortness of breath. - Current Medication List Current Medications: Active Medications Amlodipine Besylate (Norvasc -) 10 mg PO DAILY [facility] Last Admin: 09/04/17 09:22 Dose: 10 mg Aspirin (Ecotrin -) 81 mg PO DAILY [facility] Last Admin: 09/04/17 09:22 Dose: 81 mg Docusate Sodium (Colace -) 300 mg PO HS [facility] Last Admin: 09/03/17 22:42 Dose: 300 mg Furosemide (Lasix Injection -) 40 mg IVPUSH DAILY [facility] Last Admin: 09/04/17 09:21 Dose: 40 mg Heparin Sodium (Porcine) (Heparin -) 5,000 unit SQ BID [facility] Last Admin: 09/04/17 09:21 Dose: 5,000 unit Ranitidine HCl (Zantac -) 150 mg PO DAILY [facility] Last Admin: 09/04/17 09:22 Dose: 150 mg Senna (Senna -) 1 tab PO BID [facility] Last Admin: 09/04/17 09:21 Dose: 1 tab Triamterene/HCTZ (Dyazide 25/37.5mg) 1 cap PO DAILY [facility] Last Admin: 09/04/17 09:22 Dose: 1 cap - Objective Vital Signs: Vital Signs Temperature 98.6 F 09/04/17 08:10 Pulse Rate 86 09/04/17 08:10 Respiratory Rate 20 09/04/17 08:14 Blood Pressure 113/61 09/04/17 08:10 O2 Sat by Pulse Oximetry (%) 100 09/04/17 08:14 Constitutional: Yes: Calm Eyes: Yes: Conjunctiva Clear HENT: Yes: Atraumatic Cardiovascular: Yes: S1, S2 Respiratory: Yes: CTA Bilaterally Gastrointestinal: Yes: Soft Genitourinary: Yes: WNL Musculoskeletal: Yes: WNL Edema: Yes Edema: LLE: Trace, RLE: Trace Neurological: Yes: Oriented Psychiatric: Yes: Oriented Labs: CBC, BMP 09/03/17 05:25 09/04/17 06:35 INR, PTT INR 1.02 (0.82-1.09) 09/04/17 06:35 Problem List - Problems (1) Rhabdomyolysis Code(s): M62.82 - RHABDOMYOLYSIS (2) Diastolic CHF Code(s): I50.30 - UNSPECIFIED DIASTOLIC (CONGESTIVE) HEART FAILURE Qualifiers: Congestive heart failure chronicity: acute on chronic Qualified Code(s): I50.33 - Acute on chronic diastolic (congestive) heart failure (3) Elevated troponin Code(s): R74.8 - ABNORMAL LEVELS OF OTHER SERUM ENZYMES (4) HTN (hypertension) Code(s): I10 - ESSENTIAL (PRIMARY) HYPERTENSION Assessment/Plan Current Medications Generic Name Dose Route Start Last Admin Trade Name [place] PRN Reason Stop Dose Admin Amlodipine Besylate 10 mg 08/31/17 10:00 09/04/17 09:22 Norvasc - PO 10 mg DAILY [facility] Administration Aspirin 81 mg 08/31/17 10:00 09/04/17 09:22 Ecotrin - PO 81 mg DAILY [facility] Administration Docusate Sodium 300 mg 09/01/17 22:00 09/03/17 22:42 Colace - PO 300 mg HS [facility] Administration Furosemide 40 mg 08/31/17 10:00 09/04/17 09:21 Lasix Injection - IVPUSH 40 mg DAILY [facility] Administration Heparin Sodium (Porcine) 5,000 unit 08/31/17 10:00 09/04/17 09:21 Heparin - SQ 5,000 unit BID [facility] Administration Ranitidine HCl 150 mg 08/31/17 10:00 09/04/17 09:22 Zantac - PO 150 mg DAILY [facility] Administration Senna 1 tab 09/03/17 23:15 09/04/17 09:21 Senna - PO 1 tab BID [facility] Administration Triamterene/HCTZ 1 cap 08/31/17 10:00 09/04/17 09:22 Dyazide 25/37.5mg PO 1 cap DAILY [facility] Administration Laboratory Tests 09/03/17 05:25 Double Strand DNA Ab Pending Impression 1. rhabdo 2. HTN 3. CHF 4. constipation 5. microscopic hematuria Plan - change lasix to PO - rheum follow up, workup in progress - repeat ua - repeat labs in am - get cxr - will follow Dr Chin
--- NOTE | 2017-09-04 15:36 | PN ---
Progress Note, Physician History of Present Illness: pulmonary alert,no distress,-cp,sob improving - Current Medication List Current Medications: Active Medications Amlodipine Besylate (Norvasc -) 10 mg PO DAILY [facility] Last Admin: 09/04/17 09:22 Dose: 10 mg Aspirin (Ecotrin -) 81 mg PO DAILY [facility] Last Admin: 09/04/17 09:22 Dose: 81 mg Docusate Sodium (Colace -) 300 mg PO HS [facility] Last Admin: 09/03/17 22:42 Dose: 300 mg Heparin Sodium (Porcine) (Heparin -) 5,000 unit SQ BID [facility] Last Admin: 09/04/17 09:21 Dose: 5,000 unit Ranitidine HCl (Zantac -) 150 mg PO DAILY [facility] Last Admin: 09/04/17 09:22 Dose: 150 mg Senna (Senna -) 1 tab PO BID [facility] Last Admin: 09/04/17 09:21 Dose: 1 tab Triamterene/HCTZ (Dyazide 25/37.5mg) 1 cap PO DAILY [facility] Last Admin: 09/04/17 09:22 Dose: 1 cap - Objective Vital Signs: Vital Signs Temperature 98.2 F 09/04/17 14:32 Pulse Rate 84 09/04/17 14:32 Respiratory Rate 20 09/04/17 14:32 Blood Pressure 111/60 09/04/17 14:32 O2 Sat by Pulse Oximetry (%) 100 09/04/17 08:14 Constitutional: Yes: Well Nourished, Calm Eyes: Yes: WNL HENT: Yes: WNL Neck: Yes: WNL Cardiovascular: Yes: Regular Rate and Rhythm, S1, S2 Respiratory: Yes: CTA Bilaterally Gastrointestinal: Yes: Normal Bowel Sounds, Soft Extremities: Yes: WNL Edema: No Labs: CBC, BMP 09/04/17 06:35 INR, PTT INR 1.02 (0.82-1.09) 09/04/17 06:35 - ....Imaging Chest X-ray: Report Reviewed, Image Reviewed Assessment/Plan Problem List - Problems (1) Diastolic CHF Code(s): I50.30 - UNSPECIFIED DIASTOLIC (CONGESTIVE) HEART FAILURE Qualifiers: Congestive heart failure chronicity: acute on chronic Qualified Code(s): I50.33 - Acute on chronic diastolic (congestive) heart failure (2) Elevated troponin Code(s): R74.8 - ABNORMAL LEVELS OF OTHER SERUM ENZYMES (3) Hypoalbuminemia Code(s): E88.09 - OTH DISORDERS OF PLASMA-PROTEIN METABOLISM, NEC (4) Myocarditis Code(s): I51.4 - MYOCARDITIS, UNSPECIFIED (5) Rhabdomyolysis Code(s): M62.82 - RHABDOMYOLYSIS (6) Elevated LFTs Code(s): R79.89 - OTHER SPECIFIED ABNORMAL FINDINGS OF BLOOD CHEMISTRY (7) HTN (hypertension) Code(s): I10 - ESSENTIAL (PRIMARY) HYPERTENSION (8) SOB (shortness of breath) Code(s): R06.02 - SHORTNESS OF BREATH Assessment/Plan Daily weight Strict I & O O2 VTE prophylaxis with SQ Heparin Dr Cardoso
--- NOTE | 2017-09-04 21:04 | CONS ---
PHYSICAL MEDICINE REHABILITATION AND ELECTRODIAGNOSTIC CONSULTATION DATE OF CONSULTATION: 09/04/2017 DATE OF ELECTRODIAGNOSTIC STUDY: 09/04/2017 HISTORY OF PRESENT ILLNESS: The patient is a 72-year-old woman with past medical history of recent admission to [facility] with congestive heart failure , hypertension, who was admitted with elevated troponin, CPK, and BNP, with shortness of breath, fatigue. Patient notes that her problems started back in May or June 2017. She was hospitalized at [facility], but a cardiac catheterization was normal. Patient failed to follow up as an outpatient. She apparently had an abnormal CAT scan of the chest. On admission, patient evidently had extreme elevation in CPK of over 9500. Her chemistry otherwise was mainly within normal limits, although her albumin was very low at 1.9. She had a troponin of 1.76, which was confirmed on multiple other blood tests. Her CPK has generally improved, and as of September 04, it is down to 5194. Patient's current blood work done today also demonstrated sodium of 134, potassium 3.8, chloride 89, BUN 16, creatinine 0.5. CBC showed normal WBCs as of yesterday, 8.7; hemoglobin 12.7; platelet count 368. Patient was seen by Dr. Davenport and referred for electrodiagnostic evaluation. Again, patient does have problem swallowing and chewing at times. CT of the abdomen and pelvis was reviewed and showed some subcutaneous edema seen on chest CT. There was a questionable interstitial pulmonary vascular congestion, likely chronic lung disease. Moderate rectal fecal retention was also noted. Patient states she has become very weak, but prior to this fall, she was completely independent, walking and working in a job. PAST MEDICAL AND SURGICAL HISTORY: As above. Also, gastroesophageal reflux disease. She has no surgical history. SOCIAL HISTORY: Lives alone in an apartment. Premorbidly, completely independent but recently has a lot of difficulty with transfers. Getting even off a toilet is difficult, and she requires a walker for ambulation. REVIEW OF SYSTEMS: No lightheadedness, dizziness. No blurry vision, double vision. Again, she does have difficulty swallowing and some shortness of breath, fatigue , generalized weakness and only intermittent numbness/tingling in the hands. She has swelling in the lower extremities which has improved but persists. No neck or back pain. No generalized skin rash. No bowel/bladder incontinence. PHYSICAL EXAMINATION: General: Patient is seen lying in bed. She is in no acute distress. HEENT: She is normocephalic and atraumatic. Extraocular muscles appear full. She has no obvious facial weakness. No heliotrope rash. Extremities: She has some edema but no isolated calf tenderness. Edema is generally +1 to +2. Skin: no diffuse or focal rash. Neuromuscular: She is awake, alert, and conversant. She is cooperative and seen lying in her bed. No acute distress. Cranial nerves 2-12 are grossly intact. She has extreme weakness, more proximally than distally, with difficulty elevating her arms above shoulder length and lifting her legs off the bed but fairly good solar designer/installer strength as well as good dorsiflexion and plantar flexion strength. Normal sensation to pinprick. Slightly diminished cold temperature distally in the lower extremities. RESULTS OF ELECTROMYOGRAM NERVE CONDUCTION STUDIES: Please refer to report for details. OVERALL IMPRESSION: 1. Limited nerve conduction studies in the lower extremities due to edema and skin thickening. 2. Low-amplitude motor studies with abundant muscle membrane instability and myopathic recruitment, highly suggestive of inflammatory myopathy. 3. Cannot rule out a distal mild superimposed polyneuropathy but limited right lower limb nerve conduction studies as above make this very difficult to confirm. 4. Elevated CPKs. 5. Fatigue. 6. Difficulty swallowing. 7. Congestive heart failure. 8. Elevated troponins. 9. Gastroesophageal reflux disease. PLAN/SUGGESTION: 1. Follow up with Dr. Davenport. 2. Consider muscle biopsy from proximal left upper or left lower limb if confirmation of diagnosis is needed. 3. Physical therapy once stable. 4. Consider speech pathology for swallowing evaluation. 5. Bowel regimen. 6. Continue subcutaneous heparin for DVT prophylaxis. 7. Skin precaution. 8. When able, out of bed to chair. 9. Will require short-term rehab in a [facility] facility. Thank you for this referral. JASSON LOPEZ M.D. PING/[id number] MTDD
[2017-09-04] MEDS: DOCUSATE SODIUM 100 MG CAPSULE (FP) PO SCH ×2 (21:34→21:35)
--- NOTE | 2017-09-04 21:58 | PN ---
Progress Note, Physician History of Present Illness: doing well no complaints sob improving - Current Medication List Current Medications: Active Medications Amlodipine Besylate (Norvasc -) 10 mg PO DAILY [facility] Last Admin: 09/04/17 09:22 Dose: 10 mg Aspirin (Ecotrin -) 81 mg PO DAILY [facility] Last Admin: 09/04/17 09:22 Dose: 81 mg Docusate Sodium (Colace -) 300 mg PO HS [facility] Last Admin: 09/04/17 21:35 Dose: Not Given Heparin Sodium (Porcine) (Heparin -) 5,000 unit SQ BID [facility] Last Admin: 09/04/17 21:34 Dose: 5,000 unit Ranitidine HCl (Zantac -) 150 mg PO DAILY [facility] Last Admin: 09/04/17 09:22 Dose: 150 mg Senna (Senna -) 1 tab PO BID [facility] Last Admin: 09/04/17 21:35 Dose: Not Given Triamterene/HCTZ (Dyazide 25/37.5mg) 1 cap PO DAILY [facility] Last Admin: 09/04/17 09:22 Dose: 1 cap - Objective Vital Signs: Vital Signs Temperature 98.2 F 09/04/17 14:00 Pulse Rate 83 09/04/17 20:00 Respiratory Rate 20 09/04/17 20:00 Blood Pressure 119/63 09/04/17 20:00 O2 Sat by Pulse Oximetry (%) 100 09/04/17 08:14 Constitutional: Yes: No Distress, Calm Neck: Yes: Supple Cardiovascular: Yes: Regular Rate and Rhythm Respiratory: Yes: Regular, CTA Bilaterally Musculoskeletal: Yes: WNL Extremities: Yes: Other Edema: LLE: Trace, RLE: Trace Neurological: Yes: Alert, Oriented Psychiatric: Yes: Alert, Oriented Labs: CBC, BMP 09/03/17 05:25 09/04/17 06:35 INR, PTT INR 1.02 (0.82-1.09) 09/04/17 06:35 Assessment/Plan Problem List - Problems (1) Diastolic CHF Code(s): I50.30 - UNSPECIFIED DIASTOLIC (CONGESTIVE) HEART FAILURE Qualifiers: Congestive heart failure chronicity: acute on chronic Qualified Code(s): I50.33 - Acute on chronic diastolic (congestive) heart failure (2) Elevated troponin Code(s): R74.8 - ABNORMAL LEVELS OF OTHER SERUM ENZYMES (3) Hypoalbuminemia Code(s): E88.09 - OTH DISORDERS OF PLASMA-PROTEIN METABOLISM, NEC (4) Myocarditis Code(s): I51.4 - MYOCARDITIS, UNSPECIFIED (5) Rhabdomyolysis Code(s): M62.82 - RHABDOMYOLYSIS (6) Elevated LFTs Code(s): R79.89 - OTHER SPECIFIED ABNORMAL FINDINGS OF BLOOD CHEMISTRY (7) HTN (hypertension) Code(s): I10 - ESSENTIAL (PRIMARY) HYPERTENSION (8) SOB (shortness of breath) Code(s): R06.02 - SHORTNESS OF BREATH looking at the complete picture i do not know but a thought process is that if the muscle biopsy might be helpful plan continue current mgmt repeat urine cx ordered as it was contaminated rest continue as per primary
--- NOTE | 2017-09-04 22:42 | PN ---
Progress Note, Physician History of Present Illness: No new complaints - Current Medication List Current Medications: Active Medications Amlodipine Besylate (Norvasc -) 10 mg PO DAILY [facility] Last Admin: 09/04/17 09:22 Dose: 10 mg Aspirin (Ecotrin -) 81 mg PO DAILY [facility] Last Admin: 09/04/17 09:22 Dose: 81 mg Docusate Sodium (Colace -) 300 mg PO HS [facility] Last Admin: 09/04/17 21:35 Dose: Not Given Heparin Sodium (Porcine) (Heparin -) 5,000 unit SQ BID [facility] Last Admin: 09/04/17 21:34 Dose: 5,000 unit Ranitidine HCl (Zantac -) 150 mg PO DAILY [facility] Last Admin: 09/04/17 09:22 Dose: 150 mg Senna (Senna -) 1 tab PO BID [facility] Last Admin: 09/04/17 21:35 Dose: Not Given Triamterene/HCTZ (Dyazide 25/37.5mg) 1 cap PO DAILY [facility] Last Admin: 09/04/17 09:22 Dose: 1 cap - Objective Vital Signs: Vital Signs Temperature 98.6 F 09/04/17 22:00 Pulse Rate 91 H 09/04/17 22:00 Respiratory Rate 20 09/04/17 22:00 Blood Pressure 112/52 09/04/17 22:00 O2 Sat by Pulse Oximetry (%) 99 09/04/17 22:00 HENT: Yes: WNL Neck: Yes: WNL, Supple Cardiovascular: Yes: WNL, Regular Rate and Rhythm Respiratory: Yes: Diminished Gastrointestinal: Yes: WNL, Normal Bowel Sounds, Soft Edema: LLE: 1+, RLE: 1+ Labs: CBC, BMP 09/03/17 05:25 09/04/17 06:35 INR, PTT INR 1.02 (0.82-1.09) 09/04/17 06:35 Problem List - Problems (1) Myocarditis Assessment/Plan: Rheum consult noted Autoimmune w/u in progress Will send HIV titer CPK slowly decreasing Code(s): I51.4 - MYOCARDITIS, UNSPECIFIED (2) Abdominal bloating Assessment/Plan: Ct scan abd showed: b/l flank subcutaneous edema/pyelonephritis/stercocal colitis Check urine culture Code(s): R14.0 - ABDOMINAL DISTENSION (GASEOUS) (3) SOB (shortness of breath) Assessment/Plan: Multifactorial CHF(pulmonary vasc congestion) vs Interstitial Lung dz Code(s): R06.02 - SHORTNESS OF BREATH (4) Diastolic CHF Assessment/Plan: Acute on chronic diastolic heart failue Cont diuresis Code(s): I50.30 - UNSPECIFIED DIASTOLIC (CONGESTIVE) HEART FAILURE Qualifiers: Congestive heart failure chronicity: acute on chronic Qualified Code(s): I50.33 - Acute on chronic diastolic (congestive) heart failure (5) Elevated troponin Code(s): R74.8 - ABNORMAL LEVELS OF OTHER SERUM ENZYMES (6) Elevated LFTs Code(s): R79.89 - OTHER SPECIFIED ABNORMAL FINDINGS OF BLOOD CHEMISTRY (7) HTN (hypertension) Code(s): I10 - ESSENTIAL (PRIMARY) HYPERTENSION
[2017-09-05 06:04] LABS: COMPLEMENT TOTAL(CH50) 59 U/mL (42-60); HEP B CORE AB, IGM Negative (Negative)
[2017-09-05 06:06] LABS: SERUM IRON SATURATION 45 % (15-55); TOTAL IRON BINDING CAPACITY 125 ug/dL (250-450); UIBC 69 ug/dL (118-369)
[2017-09-05 07:15] LABS: ALBUMIN 1.8 g/dl (3.4-5.0); ANION GAP 7 (8-16); BILIRUBIN,TOTAL 0.4 mg/dL (0.2-1.0); BLOOD UREA NITROGEN 15 mg/dL (7-18); CALCIUM 8.3 mg/dL (8.5-10.1); CHLORIDE 89 mmol/L (98-107); CO2 37 mmol/L (21-32); CREATININE 0.5 mg/dL (0.55-1.02); GLUCOSE,RANDOM 82 mg/dL (74-106); POTASSIUM 3.8 mmol/L (3.5-5.1); SGOT/AST 201 U/L (15-37); SGPT/ALT 174 U/L (12-78); SODIUM 133 mmol/L (136-145)
[2017-09-05 07:29] LABS: ALK PHOS 69 U/L (45-117)
[2017-09-05 07:41] LABS: HEMATOCRIT 40.1 % (32.4-45.2); MCHC 32.4 g/dl (32.0-36.0); MEAN CELL VOLUME 77.2 fl (80-96); MEAN PLT VOLUME 8.8 fl (7.5-11.1); PLATELET COUNT 379 K/MM3 (134-434); RBC 5.19 M/mm3 (3.60-5.2); RDW 17.9 % (11.6-15.6); WHITE BLOOD COUNT 9.4 K/mm3 (4.0-10.0)
[2017-09-05] MEDS: TRIAMTERENE AND HCTZ - 37.5 MG/25 MG CAPSULE PO SCH (09:49)
[2017-09-05] MEDS: RANITIDINE HCL 150 MG TABLET (FP) PO SCH (09:49)
[2017-09-05] MEDS: HEPARIN NA (PORCINE) 5,000 UNITS/ML 1ML VIAL SQ SCH ×2 (09:49→21:33)
[2017-09-05] MEDS: ASPIRIN COATED 81 MG TABLET.EC PO SCH (09:49)
[2017-09-05] MEDS: amLODIPine BESYLATE 10 MG TABLET (FP) PO SCH (09:49)
[2017-09-05] MEDS: SENNOSIDES 8.6MG TABLET (FP) PO SCH ×2 (09:49→21:34)
[2017-09-05 11:03] LABS: URINE APPEARANCE CLEAR; URINE BILIRUBIN NEGATIVE (NEGATIVE); URINE BLOOD 2+ (NEGATIVE); URINE COLOR YELLOW; URINE GLUCOSE (UA) NEGATIVE (NEGATIVE); URINE KETONE NEGATIVE (NEGATIVE); URINE NITRITE NEGATIVE (NEGATIVE)
[2017-09-05 11:06] LABS: URINE LEUK ESTERASE 2+ (NEGATIVE); URINE PROTEIN 1+ (NEGATIVE)
[2017-09-05 11:10] LABS: EPI CELLS RARE /HPF (FEW)
--- NOTE | 2017-09-05 11:42 | PN ---
Progress Note, Physician History of Present Illness: seen and examined today in nad. states she is feeling better overall but still weak. no overnight events. no new complaints. - Current Medication List Current Medications: Active Medications Amlodipine Besylate (Norvasc -) 10 mg PO DAILY [facility] Last Admin: 09/05/17 09:49 Dose: 10 mg Aspirin (Ecotrin -) 81 mg PO DAILY [facility] Last Admin: 09/05/17 09:49 Dose: 81 mg Docusate Sodium (Colace -) 300 mg PO HS [facility] Last Admin: 09/04/17 21:35 Dose: Not Given Heparin Sodium (Porcine) (Heparin -) 5,000 unit SQ BID [facility] Last Admin: 09/05/17 09:49 Dose: 5,000 unit Prednisone (Deltasone -) 60 mg PO DAILY [facility] Ranitidine HCl (Zantac -) 150 mg PO DAILY [facility] Last Admin: 09/05/17 09:49 Dose: 150 mg Senna (Senna -) 1 tab PO BID [facility] Last Admin: 09/05/17 09:49 Dose: Not Given Triamterene/HCTZ (Dyazide 25/37.5mg) 1 cap PO DAILY [facility] Last Admin: 09/05/17 09:49 Dose: 1 cap - Objective Vital Signs: Vital Signs Temperature 97.6 F 09/05/17 02:00 Pulse Rate 85 09/05/17 02:00 Respiratory Rate 20 09/05/17 02:00 Blood Pressure 108/48 09/05/17 02:00 O2 Sat by Pulse Oximetry (%) 99 09/04/17 22:00 Constitutional: Yes: No Distress, Calm Eyes: Yes: Conjunctiva Clear, EOM Intact, PERRL HENT: Yes: Atraumatic, Normocephalic Neck: Yes: Supple, Trachea Midline Cardiovascular: Yes: Regular Rate and Rhythm, S1, S2. No: Bradycardia, Pulse Irregular, JVD, Murmur, Rub, S3, S4, Varicosities Respiratory: Yes: Regular, Diminished. No: Rales, Rhonchi, Wheezes Gastrointestinal: Yes: Normal Bowel Sounds, Soft Edema: No Peripheral Pulses WNL: Yes Neurological: Yes: Alert, Oriented Psychiatric: Yes: Alert, Oriented Labs: CBC, BMP 09/05/17 05:50 09/05/17 05:50 INR, PTT INR 1.02 (0.82-1.09) 09/04/17 06:35 - ....Imaging Chest X-ray: Report Reviewed, Image Reviewed EKG: Report Reviewed, Image Reviewed Other: Report Reviewed, Image Reviewed (tele-nsr, pvcs) Assessment/Plan 72 year old woman h/o HTN, recent admission with SOB, edema, elevated CK/ troponin, LFTs, low albumin sent for cardiac cath which showed normal coronary arteries, presumed myocarditis secondary to other underlying process, now re- admitted with similar symptoms and persistently elevated CK, Trop, LFTs, and low albumin. SOB/edema-Acute Diastolic CHF, possible myocarditis, hypoalbumin with 3rd spacing -recent cardiac cath after last admission showed normal coronary arteries -LV systolic function has been normal including on repeat echo this admission -volume status improving since admission, cont current diuretics for now -recent CTA showed no PE -cardiac enzymes did not trend up -cont ASA 81mg daily Rheum -d/w Dr. Davenport, there is some evidence of myositis, agree with starting steroids -pt will benefit from cardiac MRI to evaluate for cardiac involvement however at this time as her LV function is normal and she is overall euvolemic and it would not change the current treatmen plan, can defer Cardiac MRI to be done as outpatient
--- NOTE | 2017-09-05 13:06 | PN ---
Progress Note (short form) - Note Progress Note: Breathing feels OK today. Reports fatigue. No CP or SOB. No acute events overnight. Intake & Output 09/02/17 09/03/17 09/04/17 09/05/17 23:59 23:59 23:59 23:59 Intake Total 240 350 290 Output Total 0 9 2 Balance 240 350 281 -2 Last Vital Signs Temp Pulse Resp BP Pulse Ox 98 F 86 20 108/48 99 09/05/17 12:58 09/05/17 12:58 09/05/17 12:58 09/05/17 02:00 09/04/17 22:00 Active Medications Amlodipine Besylate (Norvasc -) 10 mg PO DAILY [facility] Last Admin: 09/05/17 09:49 Dose: 10 mg Aspirin (Ecotrin -) 81 mg PO DAILY [facility] Last Admin: 09/05/17 09:49 Dose: 81 mg Docusate Sodium (Colace -) 300 mg PO HS [facility] Last Admin: 09/04/17 21:35 Dose: Not Given Heparin Sodium (Porcine) (Heparin -) 5,000 unit SQ BID [facility] Last Admin: 09/05/17 09:49 Dose: 5,000 unit Prednisone (Deltasone -) 60 mg PO DAILY [facility] Ranitidine HCl (Zantac -) 150 mg PO DAILY [facility] Last Admin: 09/05/17 09:49 Dose: 150 mg Senna (Senna -) 1 tab PO BID [facility] Last Admin: 09/05/17 09:49 Dose: Not Given Triamterene/HCTZ (Dyazide 25/37.5mg) 1 cap PO DAILY [facility] Last Admin: 09/05/17 09:49 Dose: 1 cap Constitutional: Yes: No Distress, Awake and alert Eyes: Yes: Conjunctiva Clear, EOM Intact HENT: Yes: Atraumatic, Normocephalic Neck: Yes: Supple, Trachea Midline Cardiovascular: Yes: Regular Rate and Rhythm Respiratory: Yes: Cough, Diminished, On Nasal O2, Rales, Rhonchi. No: Accessory Muscle Use, Stridor, Tachypnea, Wheezes ...Inspection: Yes: WNL ...Clubbing: No Gastrointestinal: Yes: Normal Bowel Sounds, Soft Renal/: Yes: WNL Musculoskeletal: Yes: WNL Extremities: Yes: WNL Edema: Yes Peripheral Pulses WNL: Yes Integumentary: Yes: WNL Neurological: Yes: Alert, Oriented ...Motor Strength: WNL Psychiatric: Yes: WNL, Alert, Oriented Labs: Laboratory Results - last 24 hr 09/03/17 09/03/17 09/04/17 05:25 05:25 06:35 WBC RBC Hgb Hct MCV MCH MCHC RDW Plt Count MPV Neutrophils % Lymphocytes % Sodium Potassium Chloride Carbon Dioxide Anion Gap BUN Creatinine Creat Clearance w eGFR Random Glucose Calcium Iron 56 TIBC 125 L Iron Saturation 45 Total Bilirubin AST ALT Alkaline Phosphatase Creatine Kinase Creatine Kinase Index CK-MB (CK-2) Total Protein Total Protein (PEP) 5.6 L Albumin Albumin (PEP) 2.0 L Globulin 3.6 Albumin/Globulin Ratio 0.6 L Beta Globulins 0.6 L Urine Color Urine Appearance Urine pH Ur Specific [place] Urine Protein Urine Glucose (UA) Urine Ketones Urine Blood Urine Nitrite Urine Bilirubin Urine Urobilinogen Ur Leukocyte Esterase Urine WBC (Auto) Urine RBC (Auto) Ur Epithelial Cells AINSLEY M-Neptali Not observed Double Strand DNA Ab <1 Tot Complement (CH50) 59 Hep Bs Antigen Negative Hep Bs Antibody Reactive Hep B Core Total Ab Negative Hep B Core IgM Ab Negative Hepatitis Be Antibody Negative Hepatitis Be Antigen Negative 09/05/17 09/05/17 09/05/17 05:50 05:50 10:15 WBC 9.4 RBC 5.19 Hgb 13.0 Hct 40.1 MCV 77.2 L MCH 25.0 L MCHC 32.4 RDW 17.9 H Plt Count 379 MPV 8.8 Neutrophils % No Result Required. Lymphocytes % No Result Required. Sodium 133 L Potassium 3.8 Chloride 89 L Carbon Dioxide 37 H Anion Gap 7 L BUN 15 Creatinine 0.5 L Creat Clearance w eGFR > 60 Random Glucose 82 Calcium 8.3 L Iron TIBC Iron Saturation Total Bilirubin 0.4 D AST 201 H ALT 174 H Alkaline Phosphatase 69 Creatine Kinase 5794 H Creatine Kinase Index 3.4 CK-MB (CK-2) 201.33 H Total Protein 6.0 L Total Protein (PEP) Albumin 1.8 L Albumin (PEP) Globulin Albumin/Globulin Ratio Beta Globulins Urine Color Yellow Urine Appearance Clear Urine pH 7.0 Ur Specific [place] 1.014 Urine Protein 1+ H Urine Glucose (UA) Negative Urine Ketones Negative Urine Blood 2+ H Urine Nitrite Negative Urine Bilirubin Negative Urine Urobilinogen 2.0 H Ur Leukocyte Esterase 2+ H Urine WBC (Auto) 10 Urine RBC (Auto) 1 Ur Epithelial Cells Rare AINSLEY M-Neptali Double Strand DNA Ab Tot Complement (CH50) Hep Bs Antigen Hep Bs Antibody Hep B Core Total Ab Hep B Core IgM Ab Hepatitis Be Antibody Hepatitis Be Antigen Problem List - Problems (1) Diastolic CHF Code(s): I50.30 - UNSPECIFIED DIASTOLIC (CONGESTIVE) HEART FAILURE Qualifiers: Congestive heart failure chronicity: acute on chronic Qualified Code(s): I50.33 - Acute on chronic diastolic (congestive) heart failure (2) Elevated troponin Code(s): R74.8 - ABNORMAL LEVELS OF OTHER SERUM ENZYMES (3) Hypoalbuminemia Code(s): E88.09 - OTH DISORDERS OF PLASMA-PROTEIN METABOLISM, NEC (4) Myocarditis Code(s): I51.4 - MYOCARDITIS, UNSPECIFIED (5) Rhabdomyolysis Code(s): M62.82 - RHABDOMYOLYSIS (6) Elevated LFTs Code(s): R79.89 - OTHER SPECIFIED ABNORMAL FINDINGS OF BLOOD CHEMISTRY (7) HTN (hypertension) Code(s): I10 - ESSENTIAL (PRIMARY) HYPERTENSION (8) SOB (shortness of breath) Code(s): R06.02 - SHORTNESS OF BREATH Assessment/Plan Noted Prednisone 60mg OD started Lasix as tolerated Daily weight Strict I & O O2 as needed to maintain saturation ABX per ID VTE prophylaxis with SQ Heparin Follow Serology Dr Knight Problem List - Problems (1) Diastolic CHF Code(s): I50.30 - UNSPECIFIED DIASTOLIC (CONGESTIVE) HEART FAILURE Qualifiers: Congestive heart failure chronicity: acute on chronic Qualified Code(s): I50.33 - Acute on chronic diastolic (congestive) heart failure (2) Elevated troponin Code(s): R74.8 - ABNORMAL LEVELS OF OTHER SERUM ENZYMES (3) Hypoalbuminemia Code(s): E88.09 - OTH DISORDERS OF PLASMA-PROTEIN METABOLISM, NEC (4) Myocarditis Code(s): I51.4 - MYOCARDITIS, UNSPECIFIED (5) Rhabdomyolysis Code(s): M62.82 - RHABDOMYOLYSIS (6) Elevated LFTs Code(s): R79.89 - OTHER SPECIFIED ABNORMAL FINDINGS OF BLOOD CHEMISTRY (7) HTN (hypertension) Code(s): I10 - ESSENTIAL (PRIMARY) HYPERTENSION (8) SOB (shortness of breath) Code(s): R06.02 - SHORTNESS OF BREATH
[2017-09-05 13:51] LABS: MACROCYTOSIS 1+
[2017-09-05 13:52] LABS: OVALOCYTE 1+; TARGET CELLS 1+
--- NOTE | 2017-09-05 13:52 | PN ---
Progress Note, Physician History of Present Illness: Pt seen and examined at bedside. She is awake and appears comfortable. - Current Medication List Current Medications: Active Medications Amlodipine Besylate (Norvasc -) 10 mg PO DAILY [facility] Last Admin: 09/05/17 09:49 Dose: 10 mg Aspirin (Ecotrin -) 81 mg PO DAILY [facility] Last Admin: 09/05/17 09:49 Dose: 81 mg Docusate Sodium (Colace -) 300 mg PO HS [facility] Last Admin: 09/04/17 21:35 Dose: Not Given Heparin Sodium (Porcine) (Heparin -) 5,000 unit SQ BID [facility] Last Admin: 09/05/17 09:49 Dose: 5,000 unit Prednisone (Deltasone -) 60 mg PO DAILY [facility] Ranitidine HCl (Zantac -) 150 mg PO DAILY [facility] Last Admin: 09/05/17 09:49 Dose: 150 mg Senna (Senna -) 1 tab PO BID [facility] Last Admin: 09/05/17 09:49 Dose: Not Given Triamterene/HCTZ (Dyazide 25/37.5mg) 1 cap PO DAILY [facility] Last Admin: 09/05/17 09:49 Dose: 1 cap - Objective Vital Signs: Vital Signs Temperature 98 F 09/05/17 12:58 Pulse Rate 86 09/05/17 12:58 Respiratory Rate 20 09/05/17 12:58 Blood Pressure 108/48 09/05/17 02:00 O2 Sat by Pulse Oximetry (%) 99 09/04/17 22:00 Constitutional: Yes: Calm Eyes: Yes: Conjunctiva Clear HENT: Yes: Atraumatic Neck: Yes: Supple Cardiovascular: Yes: S1, S2 Respiratory: Yes: CTA Bilaterally Gastrointestinal: Yes: Soft Genitourinary: Yes: WNL Musculoskeletal: Yes: WNL Edema: LLE: Trace, RLE: Trace Neurological: Yes: Oriented Psychiatric: Yes: Oriented Labs: CBC, BMP 09/05/17 05:50 09/05/17 05:50 INR, PTT INR 1.02 (0.82-1.09) 09/04/17 06:35 Problem List - Problems (1) Rhabdomyolysis Code(s): M62.82 - RHABDOMYOLYSIS (2) Diastolic CHF Code(s): I50.30 - UNSPECIFIED DIASTOLIC (CONGESTIVE) HEART FAILURE Qualifiers: Congestive heart failure chronicity: acute on chronic Qualified Code(s): I50.33 - Acute on chronic diastolic (congestive) heart failure (3) Elevated troponin Code(s): R74.8 - ABNORMAL LEVELS OF OTHER SERUM ENZYMES (4) HTN (hypertension) Code(s): I10 - ESSENTIAL (PRIMARY) HYPERTENSION Assessment/Plan Current Medications Generic Name Dose Route Start Last Admin Trade Name [place] PRN Reason Stop Dose Admin Amlodipine Besylate 10 mg 08/31/17 10:00 09/05/17 09:49 Norvasc - PO 10 mg DAILY [facility] Administration Aspirin 81 mg 08/31/17 10:00 09/05/17 09:49 Ecotrin - PO 81 mg DAILY [facility] Administration Docusate Sodium 300 mg 09/01/17 22:00 09/04/17 21:35 Colace - PO Not Given HS [facility] Heparin Sodium (Porcine) 5,000 unit 08/31/17 10:00 09/05/17 09:49 Heparin - SQ 5,000 unit BID [facility] Administration Prednisone 60 mg 09/05/17 11:45 Deltasone - PO DAILY [facility] Ranitidine HCl 150 mg 08/31/17 10:00 09/05/17 09:49 Zantac - PO 150 mg DAILY [facility] Administration Senna 1 tab 09/03/17 23:15 09/05/17 09:49 Senna - PO Not Given BID [facility] Triamterene/HCTZ 1 cap 08/31/17 10:00 09/05/17 09:49 Dyazide 25/37.5mg PO 1 cap DAILY [facility] Administration Laboratory Tests 09/03/17 09/05/17 05:25 05:50 AINSLEY M-Neptali Not observed Double Strand DNA Ab <1 Tot Complement (CH50) 59 HIV 1&2 Ag/Ab, 4th Gen Pending Laboratory Tests 09/05/17 10:15 Urine Protein 1+ H Urine Blood 2+ H Impression 1. rhabdo 2. HTN 3. CHF 4. constipation 5. microscopic hematuria 6. proteinuria Plan - repeat ua reviewed - will order further testing - cont current meds - hold lasix today - rheum follow up, workup in progress - hold lasix - will follow Dr Chin
[2017-09-05] MEDS: predniSONE 20 MG TABLET (UD) PO SCH (13:58)
--- NOTE | 2017-09-05 14:27 | PN ---
Progress Note (short form) - Note Progress Note: Patient reports weakness, and denies arthralgia or muscle pain. P/E Lungs clear. No active joints,. Proximal muscle weakness 4/5. I appreciate Dr. Ryan consult. EMG indicative of Myopathy. Laboratory : ESR 29, CK increased (5794). Urinalysis with protein1+, blood 2+ and LE 2+. Anti-DNAds negative and CH50 normal No M spike,. Iron 45 and TIBC 125. 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 Plan: Consult to Dr. Key for muscle biopsy (Biopsy Left thigh. EMG was done on right limbs). Prednisone 60 mg/d. As per discussion Mark dunaway Dr, consider heart MRI as outpatient. Problem List - Problems (1) Rhabdomyolysis Code(s): M62.82 - RHABDOMYOLYSIS
[2017-09-05] MEDS ORDERED: PT OWN MED DRAWER 7, Y5N ONE (15:56)
--- NOTE | 2017-09-05 16:14 | PN ---
Progress Note (short form) - Note Progress Note: VAscular Surgery Pt seen and examined with daughter at bedside. Rheum note appreciated. Will do left thigh muscle biopsy on saturday morning. . Spoke to pt about the surgery. Ciaran hazel DO
--- NOTE | 2017-09-05 16:33 | PN ---
Progress Note, Physician History of Present Illness: doing well no complaints - Current Medication List Current Medications: Active Medications Amlodipine Besylate (Norvasc -) 10 mg PO DAILY [facility] Last Admin: 09/05/17 09:49 Dose: 10 mg Aspirin (Ecotrin -) 81 mg PO DAILY [facility] Last Admin: 09/05/17 09:49 Dose: 81 mg Docusate Sodium (Colace -) 300 mg PO HS [facility] Last Admin: 09/04/17 21:35 Dose: Not Given Heparin Sodium (Porcine) (Heparin -) 5,000 unit SQ BID [facility] Last Admin: 09/05/17 09:49 Dose: 5,000 unit Prednisone (Deltasone -) 60 mg PO DAILY [facility] Last Admin: 09/05/17 13:58 Dose: 60 mg Ranitidine HCl (Zantac -) 150 mg PO DAILY [facility] Last Admin: 09/05/17 09:49 Dose: 150 mg Senna (Senna -) 1 tab PO BID [facility] Last Admin: 09/05/17 09:49 Dose: Not Given Triamterene/HCTZ (Dyazide 25/37.5mg) 1 cap PO DAILY [facility] Last Admin: 09/05/17 09:49 Dose: 1 cap - Objective Vital Signs: Vital Signs Temperature 98 F 09/05/17 12:58 Pulse Rate 86 09/05/17 12:58 Respiratory Rate 20 09/05/17 12:58 Blood Pressure 108/48 09/05/17 02:00 O2 Sat by Pulse Oximetry (%) 99 09/04/17 22:00 Constitutional: Yes: No Distress, Calm Cardiovascular: Yes: S1, S2 Respiratory: Yes: Regular, Poor Air Entry (bases) Gastrointestinal: Yes: Normal Bowel Sounds, Soft Musculoskeletal: Yes: WNL Extremities: Yes: WNL Neurological: Yes: Alert, Oriented Psychiatric: Yes: Alert, Oriented Labs: CBC, BMP 09/05/17 05:50 09/05/17 05:50 INR, PTT INR 1.02 (0.82-1.09) 09/04/17 06:35 Assessment/Plan Problem List - Problems (1) Diastolic CHF Code(s): I50.30 - UNSPECIFIED DIASTOLIC (CONGESTIVE) HEART FAILURE Qualifiers: Congestive heart failure chronicity: acute on chronic Qualified Code(s): I50.33 - Acute on chronic diastolic (congestive) heart failure (2) Elevated troponin Code(s): R74.8 - ABNORMAL LEVELS OF OTHER SERUM ENZYMES (3) Hypoalbuminemia Code(s): E88.09 - OTH DISORDERS OF PLASMA-PROTEIN METABOLISM, NEC (4) Myocarditis Code(s): I51.4 - MYOCARDITIS, UNSPECIFIED (5) Rhabdomyolysis Code(s): M62.82 - RHABDOMYOLYSIS (6) Elevated LFTs Code(s): R79.89 - OTHER SPECIFIED ABNORMAL FINDINGS OF BLOOD CHEMISTRY (7) HTN (hypertension) Code(s): I10 - ESSENTIAL (PRIMARY) HYPERTENSION (8) SOB (shortness of breath) Code(s): R06.02 - SHORTNESS OF BREATH l plan continue current mgmt await for final plan rst as per primary team urine still contaminated patient dong well without complaints
[2017-09-05] MEDS: DOCUSATE SODIUM 100 MG CAPSULE (FP) PO SCH (21:33)
--- NOTE | 2017-09-05 22:37 | PN ---
Progress Note, Physician History of Present Illness: No new complaints - Current Medication List Current Medications: Active Medications Amlodipine Besylate (Norvasc -) 10 mg PO DAILY [facility] Last Admin: 09/05/17 09:49 Dose: 10 mg Aspirin (Ecotrin -) 81 mg PO DAILY [facility] Last Admin: 09/05/17 09:49 Dose: 81 mg Docusate Sodium (Colace -) 300 mg PO HS [facility] Last Admin: 09/05/17 21:33 Dose: Not Given Heparin Sodium (Porcine) (Heparin -) 5,000 unit SQ BID [facility] Last Admin: 09/05/17 21:33 Dose: 5,000 unit Prednisone (Deltasone -) 60 mg PO DAILY [facility] Last Admin: 09/05/17 13:58 Dose: 60 mg Ranitidine HCl (Zantac -) 150 mg PO DAILY [facility] Last Admin: 09/05/17 09:49 Dose: 150 mg Senna (Senna -) 1 tab PO BID [facility] Last Admin: 09/05/17 21:34 Dose: Not Given Triamterene/HCTZ (Dyazide 25/37.5mg) 1 cap PO DAILY [facility] Last Admin: 09/05/17 09:49 Dose: 1 cap - Objective Vital Signs: Vital Signs Temperature 98.2 F 09/05/17 20:52 Pulse Rate 77 09/05/17 20:52 Respiratory Rate 20 09/05/17 20:56 Blood Pressure 99/74 09/05/17 20:52 O2 Sat by Pulse Oximetry (%) 99 09/05/17 20:56 Constitutional: Yes: Calm HENT: Yes: WNL Neck: Yes: WNL, Supple Cardiovascular: Yes: WNL, Regular Rate and Rhythm Respiratory: Yes: Diminished Gastrointestinal: Yes: WNL, Normal Bowel Sounds, Soft Labs: CBC, BMP 09/05/17 05:50 09/05/17 05:50 INR, PTT INR 1.02 (0.82-1.09) 09/04/17 06:35 Problem List - Problems (1) Polymyositis Assessment/Plan: Case d/w rheum Started on prednisone Vascular consult for muscle bx Code(s): M33.20 - POLYMYOSITIS, ORGAN INVOLVEMENT UNSPECIFIED (2) Myocarditis Assessment/Plan: May need MRI as outpt Code(s): I51.4 - MYOCARDITIS, UNSPECIFIED (3) Abdominal bloating Assessment/Plan: Ct scan abd showed: b/l flank subcutaneous edema/pyelonephritis/stercocal colitis follow urine culture Code(s): R14.0 - ABDOMINAL DISTENSION (GASEOUS) (4) SOB (shortness of breath) Code(s): R06.02 - SHORTNESS OF BREATH (5) Diastolic CHF Code(s): I50.30 - UNSPECIFIED DIASTOLIC (CONGESTIVE) HEART FAILURE Qualifiers: Congestive heart failure chronicity: acute on chronic Qualified Code(s): I50.33 - Acute on chronic diastolic (congestive) heart failure (6) Elevated troponin Code(s): R74.8 - ABNORMAL LEVELS OF OTHER SERUM ENZYMES (7) Elevated LFTs Code(s): R79.89 - OTHER SPECIFIED ABNORMAL FINDINGS OF BLOOD CHEMISTRY (8) HTN (hypertension) Code(s): I10 - ESSENTIAL (PRIMARY) HYPERTENSION
[2017-09-06 06:38] LABS: ANION GAP 8 (8-16); BLOOD UREA NITROGEN 22 mg/dL (7-18); CALCIUM 7.8 mg/dL (8.5-10.1); CHLORIDE 90 mmol/L (98-107); CO2 34 mmol/L (21-32); CREATININE 0.5 mg/dL (0.55-1.02); GLUCOSE,RANDOM 108 mg/dL (74-106); POTASSIUM 4.1 mmol/L (3.5-5.1); SODIUM 132 mmol/L (136-145)
--- NOTE | 2017-09-06 08:28 | PN ---
Progress Note, Physician Chief Complaint: no complaints - Current Medication List Current Medications: Active Medications Amlodipine Besylate (Norvasc -) 10 mg PO DAILY [facility] Last Admin: 09/05/17 09:49 Dose: 10 mg Aspirin (Ecotrin -) 81 mg PO DAILY [facility] Last Admin: 09/05/17 09:49 Dose: 81 mg Docusate Sodium (Colace -) 300 mg PO HS [facility] Last Admin: 09/05/17 21:33 Dose: Not Given Heparin Sodium (Porcine) (Heparin -) 5,000 unit SQ BID [facility] Last Admin: 09/05/17 21:33 Dose: 5,000 unit Prednisone (Deltasone -) 60 mg PO DAILY [facility] Last Admin: 09/05/17 13:58 Dose: 60 mg Ranitidine HCl (Zantac -) 150 mg PO DAILY [facility] Last Admin: 09/05/17 09:49 Dose: 150 mg Senna (Senna -) 1 tab PO BID [facility] Last Admin: 09/05/17 21:34 Dose: Not Given Triamterene/HCTZ (Dyazide 25/37.5mg) 1 cap PO DAILY [facility] Last Admin: 09/05/17 09:49 Dose: 1 cap - Objective Vital Signs: Vital Signs Temperature 98.2 F 09/05/17 20:52 Pulse Rate 81 09/06/17 05:25 Respiratory Rate 20 09/06/17 05:25 Blood Pressure 103/48 09/06/17 05:25 O2 Sat by Pulse Oximetry (%) 99 09/05/17 20:56 Constitutional: Yes: No Distress, Calm Cardiovascular: Yes: Regular Rate and Rhythm Respiratory: Yes: CTA Bilaterally Gastrointestinal: Yes: Soft Edema: No Neurological: Yes: Alert ...Motor Strength: WNL Labs: CBC, BMP 09/05/17 05:50 09/06/17 05:17 INR, PTT INR 1.02 (0.82-1.09) 09/04/17 06:35 - ....Imaging EKG: Image Reviewed (NSR, PVCcarmel) Assessment/Plan 72 year old woman h/o HTN, recent admission with SOB, edema, elevated CK/ troponin, LFTs, low albumin sent for cardiac cath which showed normal coronary arteries, presumed myocarditis secondary to other underlying process, now re- admitted with similar symptoms and persistently elevated CK, Trop, LFTs, and low albumin. SOB/edema-Acute Diastolic CHF, possible myocarditis, hypoalbumin with 3rd spacing -recent cardiac cath after last admission showed normal coronary arteries -LV systolic function has been normal including on repeat echo this admission -volume status improving since admission, cont current diuretics for now -recent CTA showed no PE -cardiac enzymes did not trend up -cont ASA 81mg daily Rheum -Suspicion for myositis, Prednisone started. -Awaits muscle bx -?Paraneoplastic?
[2017-09-06] MEDS: SENNOSIDES 8.6MG TABLET (FP) PO SCH (09:59)
[2017-09-06] MEDS: RANITIDINE HCL 150 MG TABLET (FP) PO SCH (09:59)
[2017-09-06] MEDS: amLODIPine BESYLATE 10 MG TABLET (FP) PO SCH (09:59)
[2017-09-06] MEDS: predniSONE 20 MG TABLET (UD) PO SCH (09:59)
[2017-09-06] MEDS: ASPIRIN COATED 81 MG TABLET.EC PO SCH (10:00)
[2017-09-06] MEDS: TRIAMTERENE AND HCTZ - 37.5 MG/25 MG CAPSULE PO SCH (10:01)
[2017-09-06] MEDS: HEPARIN NA (PORCINE) 5,000 UNITS/ML 1ML VIAL SQ SCH (10:01)
[2017-09-06 11:38] VITALS: TEMP 98.5
--- NOTE | 2017-09-06 12:57 | PN ---
Progress Note (short form) - Note Progress Note: Breathing feels OK today. Still with fatigue . No CP or SOB. No acute events overnight. Intake & Output 09/03/17 09/04/17 09/05/17 09/06/17 23:59 23:59 23:59 23:59 Intake Total 350 290 140 0 Output Total 9 5 Balance 350 281 135 0 Last Vital Signs Temp Pulse Resp BP Pulse Ox 98.5 F 85 18 134/58 99 09/06/17 10:00 09/06/17 10:00 09/06/17 10:00 09/06/17 10:00 09/05/17 20:56 Active Medications Amlodipine Besylate (Norvasc -) 10 mg PO DAILY [facility] Last Admin: 09/06/17 09:59 Dose: 10 mg Aspirin (Ecotrin -) 81 mg PO DAILY [facility] Last Admin: 09/06/17 10:00 Dose: 81 mg Docusate Sodium (Colace -) 300 mg PO HS [facility] Last Admin: 09/05/17 21:33 Dose: Not Given Heparin Sodium (Porcine) (Heparin -) 5,000 unit SQ BID [facility] Last Admin: 09/06/17 10:01 Dose: 5,000 unit Prednisone (Deltasone -) 60 mg PO DAILY [facility] Last Admin: 09/06/17 09:59 Dose: 60 mg Ranitidine HCl (Zantac -) 150 mg PO DAILY [facility] Last Admin: 09/06/17 09:59 Dose: 150 mg Senna (Senna -) 1 tab PO BID [facility] Last Admin: 09/06/17 09:59 Dose: 1 tab Triamterene/HCTZ (Dyazide 25/37.5mg) 1 cap PO DAILY [facility] Last Admin: 09/06/17 10:01 Dose: 1 cap Constitutional: Yes: No Distress, Awake and alert Eyes: Yes: Conjunctiva Clear, EOM Intact HENT: Yes: Atraumatic, Normocephalic Neck: Yes: Supple, Trachea Midline Cardiovascular: Yes: Regular Rate and Rhythm Respiratory: Yes: Cough, On Nasal O2, Rales/Rhonchi. No: Accessory Muscle Use, Stridor, Tachypnea, Wheezes ...Inspection: Yes: WNL ...Clubbing: No Gastrointestinal: Yes: Normal Bowel Sounds, Soft Renal/: Yes: WNL Musculoskeletal: Yes: WNL Extremities: Yes: WNL Edema: Yes Peripheral Pulses WNL: Yes Integumentary: Yes: WNL Neurological: Yes: Alert, Oriented ...Motor Strength: WNL Psychiatric: Yes: WNL, Alert, Oriented Labs: Laboratory Results - last 24 hr 09/05/17 09/05/17 09/06/17 05:50 05:50 05:17 Total Counted 100 Neutrophils % (Manual) 82.0 Lymphocytes % (Manual) 7.0 L D Monocytes % (Manual) 6 Eosinophils % (Manual) 1.0 Basophils % (Manual) 3.0 H Microcytosis 1+ Macrocytosis 1+ Target Cells 1+ Ovalocytes 1+ Sodium 132 L Potassium 4.1 Chloride 90 L Carbon Dioxide 34 H Anion Gap 8 BUN 22 H Creatinine 0.5 L Random Glucose 108 H Calcium 7.8 L Creatine Kinase 5570 H Creatine Kinase Index 3.4 CK-MB (CK-2) 194.8 H HIV 1&2 Ag/Ab, 4th Gen Non reactive Problem List - Problems (1) Diastolic CHF Code(s): I50.30 - UNSPECIFIED DIASTOLIC (CONGESTIVE) HEART FAILURE Qualifiers: Congestive heart failure chronicity: acute on chronic Qualified Code(s): I50.33 - Acute on chronic diastolic (congestive) heart failure (2) Elevated troponin Code(s): R74.8 - ABNORMAL LEVELS OF OTHER SERUM ENZYMES (3) Hypoalbuminemia Code(s): E88.09 - OTH DISORDERS OF PLASMA-PROTEIN METABOLISM, NEC (4) Myocarditis Code(s): I51.4 - MYOCARDITIS, UNSPECIFIED (5) Rhabdomyolysis Code(s): M62.82 - RHABDOMYOLYSIS (6) Elevated LFTs Code(s): R79.89 - OTHER SPECIFIED ABNORMAL FINDINGS OF BLOOD CHEMISTRY (7) HTN (hypertension) Code(s): I10 - ESSENTIAL (PRIMARY) HYPERTENSION (8) SOB (shortness of breath) Code(s): R06.02 - SHORTNESS OF BREATH Assessment/Plan Prednisone 60mg OD started Lasix as needed Daily weight Strict I & O O2 as needed to maintain saturation ABX per ID VTE prophylaxis with SQ Heparin Follow Serology Dr Knight Problem List - Problems (1) Diastolic CHF Code(s): I50.30 - UNSPECIFIED DIASTOLIC (CONGESTIVE) HEART FAILURE Qualifiers: Congestive heart failure chronicity: acute on chronic Qualified Code(s): I50.33 - Acute on chronic diastolic (congestive) heart failure (2) Elevated troponin Code(s): R74.8 - ABNORMAL LEVELS OF OTHER SERUM ENZYMES (3) Hypoalbuminemia Code(s): E88.09 - OTH DISORDERS OF PLASMA-PROTEIN METABOLISM, NEC (4) Myocarditis Code(s): I51.4 - MYOCARDITIS, UNSPECIFIED (5) Rhabdomyolysis Code(s): M62.82 - RHABDOMYOLYSIS (6) Elevated LFTs Code(s): R79.89 - OTHER SPECIFIED ABNORMAL FINDINGS OF BLOOD CHEMISTRY (7) HTN (hypertension) Code(s): I10 - ESSENTIAL (PRIMARY) HYPERTENSION (8) SOB (shortness of breath) Code(s): R06.02 - SHORTNESS OF BREATH
--- NOTE | 2017-09-06 14:08 | DS ---
Physical Exam: SUBJECTIVE: Patient seen and examined OBJECTIVE: Vital Signs Period Temp Pulse Resp BP Sys/Rogers Pulse Ox Last 24 Hr 98.2 F-98.5 F 75-85 18-20 99-134/48-74 99-99 PHYSICAL EXAM GENERAL: The patient is awake, alert, and fully oriented, in no acute distress. HEAD: Normal with no signs of trauma. EYES: PERRL, extraocular movements intact, sclera anicteric, conjunctiva clear. ENT: Ears normal, nares patent, oropharynx clear without exudates, moist mucous membranes. NECK: Trachea midline, full range of motion, supple. LUNGS: Breath sounds equal, clear to auscultation bilaterally, no wheezes, no crackles, no accessory muscle use. HEART: Regular rate and rhythm, S1, S2 without murmur, rub or gallop. ABDOMEN: Soft, nontender, nondistended, normoactive bowel sounds, no guarding, no rebound, no hepatosplenomegaly, no masses. EXTREMITIES: 2+ pulses, warm, well-perfused, no edema. NEUROLOGICAL: Cranial nerves II through XII grossly intact. Normal speech, gait not observed. PSYCH: Normal mood, normal affect. SKIN: Warm, dry, normal turgor, no rashes or lesions noted. LABS Laboratory Results - last 24 hr 09/05/17 09/06/17 05:50 05:17 Sodium 132 L Potassium 4.1 Chloride 90 L Carbon Dioxide 34 H Anion Gap 8 BUN 22 H Creatinine 0.5 L Random Glucose 108 H Calcium 7.8 L Creatine Kinase 5570 H Creatine Kinase Index 3.4 CK-MB (CK-2) 194.8 H HIV 1&2 Ag/Ab, 4th Gen Non reactive HOSPITAL COURSE: Date of Admission:08/30/17 Date of Discharge: 09/06/17 Discharge Summary Reason For Visit: DIASTOLIC CONGESTIVE HEART FAILURE Current Active Problems Abdominal bloating (Acute) Diastolic CHF (Acute) Elevated troponin (Acute) Hypoalbuminemia (Acute) Myocarditis (Acute) Polymyositis (Acute) Rhabdomyolysis (Acute) Condition: Stable - Instructions Diet, Activity, Other Instructions: Diet: Low sodium Activity: As tolerated The patient is scheduled to go to [facility] for a muscle biopsy Saturday09/09/17. Referrals: Sergio Pelletier MD [Primary Care Provider] - Disposition: PENITENTIARY FACILITY - Home Medications Comprehensive Discharge Medication List: Ambulatory Orders Amlodipine Besylate 10 mg PO DAILY 07/26/17 Famotidine 20 mg PO DAILY 07/26/17 Triamterene/Hydrochlorothiazid [Triamterene-Hctz 37.5-25 mg Cp] 1 tab PO DAILY 07/26/17 Aspirin Coated [Ecotrin -] 81 mg PO DAILY tablet.ec 09/06/17 Docusate Sodium [Colace -] 300 mg PO HS capsule 09/06/17 Prednisone [Deltasone -] 60 mg PO DAILY tablet 09/06/17 Sennosides [Senna -] 1 tab PO BID tablet 09/06/17 This patient is new to me today: Yes Date on this admission: 09/06/17 Emergency Visit: Yes ED Registration Date: 08/30/17 Care time: The patient presented to the Emergency Department on the above date and was hospitalized for further evaluation of their emergent condition. Critical Care patient: No - Discharge Referral Referred to [facility] No
[2017-09-06 14:25] VITALS: BP 128/55; PULSE 88
--- NOTE | 2017-09-06 16:05 | PN ---
Progress Note, Physician History of Present Illness: doing well no complaints says she feels much better swelling of the leg improved - Current Medication List Current Medications: Active Medications Amlodipine Besylate (Norvasc -) 10 mg PO DAILY [facility] Last Admin: 09/06/17 09:59 Dose: 10 mg Aspirin (Ecotrin -) 81 mg PO DAILY [facility] 234 BEDS AT [facility] Last Admin: 09/06/17 10:00 Dose: 81 mg Docusate Sodium (Colace -) 300 mg PO HS [facility] 234 BEDS AT [facility] Last Admin: 09/05/17 21:33 Dose: Not Given Heparin Sodium (Porcine) (Heparin -) 5,000 unit SQ BID [facility]S [facility] Last Admin: 09/06/17 10:01 Dose: 5,000 unit Prednisone (Deltasone -) 60 mg PO DAILY [facility] 234 B[facility]S AT [facility] Last Admin: 09/06/17 09:59 Dose: 60 mg Ranitidine HCl (Zantac -) 150 mg PO DAILY [facility] 234 B[facility]S [facility] Last Admin: 09/06/17 09:59 Dose: 150 mg Senna (Senna -) 1 tab PO BID [facility]S [facility] Last Admin: 09/06/17 09:59 Dose: 1 tab Triamterene/HCTZ (Dyazide 25/37.5mg) 1 cap PO DAILY [facility] 234 B[facility]S [facility] Last Admin: 09/06/17 10:01 Dose: 1 cap - Objective Vital Signs: Vital Signs Temperature 98.5 F 09/06/17 10:00 Pulse Rate 88 09/06/17 14:00 Respiratory Rate 18 09/06/17 14:00 Blood Pressure 128/55 09/06/17 14:00 O2 Sat by Pulse Oximetry (%) 99 09/06/17 10:00 Constitutional: Yes: No Distress, Calm Respiratory: Yes: Regular, CTA Bilaterally Gastrointestinal: Yes: Normal Bowel Sounds, Soft Musculoskeletal: Yes: WNL Extremities: Yes: WNL Neurological: Yes: Alert, Oriented Psychiatric: Yes: Alert, Oriented Labs: CBC, BMP 09/05/17 05:50 09/06/17 05:17 INR, PTT INR 1.02 (0.82-1.09) 09/04/17 06:35 Assessment/Plan Problem List - Problems (1) Diastolic CHF Code(s): I50.30 - UNSPECIFIED DIASTOLIC (CONGESTIVE) HEART FAILURE Qualifiers: Congestive heart failure chronicity: acute on chronic Qualified Code(s): I50.33 - Acute on chronic diastolic (congestive) heart failure (2) Elevated troponin Code(s): R74.8 - ABNORMAL LEVELS OF OTHER SERUM ENZYMES (3) Hypoalbuminemia Code(s): E88.09 - OTH DISORDERS OF PLASMA-PROTEIN METABOLISM, NEC (4) Myocarditis Code(s): I51.4 - MYOCARDITIS, UNSPECIFIED (5) Rhabdomyolysis Code(s): M62.82 - RHABDOMYOLYSIS (6) Elevated LFTs Code(s): R79.89 - OTHER SPECIFIED ABNORMAL FINDINGS OF BLOOD CHEMISTRY (7) HTN (hypertension) Code(s): I10 - ESSENTIAL (PRIMARY) HYPERTENSION (8) SOB (shortness of breath) Code(s): R06.02 - SHORTNESS OF BREATH l plan continue current mgmt plan for rehab rest as per primary team patient dong well without complaints
--- NOTE | 2017-09-06 17:37 | PN ---
Progress Note, Physician History of Present Illness: Pt seen and examined at bedside. She is awake and alert. She denies shortness of breath or muscle pain. - Objective Vital Signs: Vital Signs Temperature 98.5 F 09/06/17 10:00 Pulse Rate 88 09/06/17 14:00 Respiratory Rate 18 09/06/17 14:00 Blood Pressure 128/55 09/06/17 14:00 O2 Sat by Pulse Oximetry (%) 99 09/06/17 10:00 Constitutional: Yes: Calm Eyes: Yes: Conjunctiva Clear HENT: Yes: Atraumatic Neck: Yes: Supple Cardiovascular: Yes: S1, S2 Respiratory: Yes: CTA Bilaterally Genitourinary: Yes: WNL Musculoskeletal: Yes: WNL Edema: No Neurological: Yes: Oriented Psychiatric: Yes: Oriented Labs: CBC, BMP 09/05/17 05:50 09/06/17 05:17 INR, PTT INR 1.02 (0.82-1.09) 09/04/17 06:35 Problem List - Problems (1) Rhabdomyolysis Code(s): M62.82 - RHABDOMYOLYSIS (2) Diastolic CHF Code(s): I50.30 - UNSPECIFIED DIASTOLIC (CONGESTIVE) HEART FAILURE Qualifiers: Congestive heart failure chronicity: acute on chronic Qualified Code(s): I50.33 - Acute on chronic diastolic (congestive) heart failure (3) Elevated troponin Code(s): R74.8 - ABNORMAL LEVELS OF OTHER SERUM ENZYMES (4) HTN (hypertension) Code(s): I10 - ESSENTIAL (PRIMARY) HYPERTENSION Assessment/Plan Laboratory Tests 09/06/17 05:17 EVELYN Screen Pending c-ANCA Pending Proteinase 3 (PR3) Pending p-ANCA Pending Atypical p-ANCA Pending Myeloperoxidase Ab Pending Impression 1. rhabdo 2. HTN 3. CHF 4. constipation 5. microscopic hematuria 6. proteinuria Plan - renal function is in progress - repeat cpk in am - will also need outpt follow up - hold lasix today - rheum follow up, workup in progress - will follow Dr Chin
[2017-09-08 06:47] LABS: SPECKLED PATTERN >1:1280 (.)
[2017-09-09 10:08] LABS: ANTIGLOMERULAR BASEMENT MEN.AB 10 units (0-20)
[2017-09-10 16:28] LABS: ATYPICAL pANCA <1:20 titer (Neg:<1:20); C-ANCA <1:20 titer (Neg:<1:20); P-ANCA <1:20 titer (Neg:<1:20); PROTEINASE-3 ANTIBODY <3.5 U/mL (0.0-3.5)
== END 2017-09-06 16:42 | DRG 557 ==
LOC: JER 14:20 → JERBED 18:49 → J2W 08-31 22:09
PROVIDERS: ADMIT Internal Medicine; ATTEND Internal Medicine
DX: M62.82 Rhabdomyolysis (principal); I50.33 Acute on chronic diastolic (congestive) heart failure; I11.0 Hypertensive heart disease with heart failure; M60.80 Other myositis, unspecified site; E88.09 Other disorders of plasma-protein metabolism, not elsewhere classified; I51.4 Myocarditis, unspecified; K59.00 Constipation, unspecified; R31.29 Other microscopic hematuria; E83.51 Hypocalcemia; K21.9 Gastro-esophageal reflux disease without esophagitis
CPT/HCPCS: 36415; 71045-TC; 74178-TC; 80048; 80053; 80061; 81003; 81015; 82550; 82553; 82962; 83516; 83520; 83540; 83550; 83721; 83880; 84155; 84165; 84439; 84443; 84481; 84484; 85025; 85610; 85651; 85730; 86038; 86162; 86225; 86256; 86704; 86705; 86707; 86803; 87086; 87340; 87350; 93005; 93010; 93306-TC; 97116-GP; 97162-GP; 99285-25; J1644

== ENCOUNTER 2017-09-11 08:06 | Day surgery (SDC) | payer OTHER ==
[2017-09-09 17:35] VITALS: BMI 26.7
[~2017-09-11 08:06] MED LIST: LIDOCAINE HCL 1%, 10 MG/ML (20ML VIAL) NR ONE
[2017-09-11 08:47] VITALS: TEMP 97.1
[2017-09-11] MEDS ORDERED: MIDAZOLAM HCL 2 MG/2 ML SINGLE DOSE VIAL ONE (08:51)
[2017-09-11] MEDS ORDERED: ceFAZolin SODIUM 1 GM VIAL IVPB ONE (09:43)
[2017-09-11] MEDS ORDERED: LIDOCAINE HCL 1%, 10 MG/ML (20ML VIAL) NR ONE (09:49)
--- NOTE | 2017-09-11 10:13 | OP ---
Operative Note - Note: Operative Date: 09/11/17 Pre-Operative Diagnosis: rule out myositis Operation: left thigh muscle biopsy Surgeon: Ciaran Key Anesthesia: Fractional Estimated Blood Loss (mls): 10 Operative Report Dictated: Yes
--- NOTE | 2017-09-11 10:19 | HP ---
Admitting History and Physical - Admission Chief Complaint: rule out myositis Limitations to Obtaining History: No Limitations - Past Medical History Cardiovascular: Yes: CHF, HTN Gastrointestinal: Yes: GERD Hepatobiliary: Yes: Other (elevated LFTS noted 07/28 and again today) Psych: Yes: Anxiety - Past Surgical History Past Surgical History: Yes: None - Smoking History Smoking history: Never smoked Have you smoked in the past 12 months: No - Alcohol/Substance Use Hx Alcohol Use: No - Social History ADL: Independent History of Recent Travel: No Home Medications - Allergies Allergies/Adverse Reactions: Allergies Allergy/AdvReac Type Severity Reaction Status Date / Time No Known Allergies Allergy Verified 08/31/17 20:41 - Home Medications Home Medications: Ambulatory Orders Amlodipine Besylate 10 mg PO DAILY 07/26/17 Famotidine 20 mg PO DAILY 07/26/17 Triamterene/Hydrochlorothiazid [Triamterene-Hctz 37.5-25 mg Cp] 1 tab PO DAILY 07/26/17 Aspirin Coated [Ecotrin -] 81 mg PO DAILY tablet.ec 09/06/17 Docusate Sodium [Colace -] 300 mg PO HS capsule 09/06/17 Prednisone [Deltasone -] 60 mg PO DAILY tablet 09/06/17 Sennosides [Senna -] 1 tab PO BID tablet 09/06/17 Review of Systems - Review of Systems Constitutional: reports: No Symptoms Eyes: reports: No Symptoms HENT: reports: No Symptoms Neck: reports: No Symptoms Cardiovascular: reports: No Symptoms Respiratory: reports: No Symptoms Gastrointestinal: reports: No Symptoms Genitourinary: reports: No Symptoms Musculoskeletal: reports: Muscle Weakness Integumentary: reports: No Symptoms Neurological: reports: No Symptoms Physical Examination Vital Signs: Vital Signs Temperature 97.1 F L 09/11/17 08:46 Pulse Rate 89 09/11/17 08:46 Respiratory Rate 18 09/11/17 08:46 Blood Pressure 128/65 09/11/17 08:46 O2 Sat by Pulse Oximetry (%) 99 09/11/17 08:54 Constitutional: Yes: Well Nourished, No Distress, Calm Eyes: Yes: WNL, Conjunctiva Clear, EOM Intact HENT: Yes: WNL, Atraumatic, Normocephalic Neck: Yes: WNL, Supple, Trachea Midline Cardiovascular: Yes: WNL, Regular Rate and Rhythm Respiratory: Yes: WNL, Regular, CTA Bilaterally Gastrointestinal: Yes: WNL, Normal Bowel Sounds Musculoskeletal: Yes: WNL Extremities: Yes: WNL Edema: No Integumentary: Yes: WNL Neurological: Yes: WNL, Alert, Oriented ...Motor Strength: WNL Psychiatric: Yes: WNL Problem List - Problems (1) Myositis Code(s): M60.9 - MYOSITIS, UNSPECIFIED Assessment/Plan muscle weakness in legs 1. for left thigh muscle biopsy today
[2017-09-11 12:05] VITALS: BP 123/70; PULSE 78
--- NOTE | 2017-09-11 16:37 | OP ---
DATE OF OPERATION: 09/11/2017 PREOPERATIVE DIAGNOSIS: Rule out myositis. POSTOPERATIVE DIAGNOSIS: Rule out myositis. PROCEDURE: Left thigh muscle biopsy. SURGEON: Ciaran Tuttle DO ANESTHESIA: Fractional. BLOOD LOSS: 20 mL. The patient is a 72-year-old female who was admitted last week to the hospital and she had lots of bilateral lower extremity weakness. Rheumatology had seen the patient. She had high inflammatory markers and it was decided that they would need a muscle biopsy. The patient was then thus discharged to [facility] and now comes in to ambulatory surgery. The patient was consented for the procedure, understanding all risks, benefits, alternatives. She was then taken to the operating room. Once in the operating room, she was laid on the operating table in supine manner, and the area of the left thigh was prepped and draped in a sterile surgical manner. We then injected 10 mL of lidocaine 1% over the left thigh and we made a 5-cm in using a 15 blade. Bovie electrocautery was used to control hemostasis and we were able to get down through all the subcutaneous tissue. Weitlaner was placed and we got down to the fascia. The fascia was then opened using Metzenbaum scissors and the muscle was visualized. We used an Allis clamp and picked up the muscle and, using a 15 blade, the muscle was excised. Muscle was then sent to Pathology. Bovie electrocautery was used to control hemostasis. We then irrigated the wound copiously. A 3-0 Vicryl was used and the subcutaneous tissue was approximated in interrupted manner. Skin was closed with 4-0 Biosyn in subcuticular running fashion. Steri-Strips, 4 x 4, Tegaderm were placed. Patient tolerated the procedure with no complication. Patient transferred to PACU in stable condition. Total blood loss 10 mL. CIARAN TUTTLE DO CRULLER MAKER MACHINE/[id number]
--- NOTE | 2017-09-24 19:41 | PATH ---
Surgical Pathology Report Patient Name: JAYDON KANG [facility]. Rec. #: [id number] /Age/Gender: 1945 (Age: 72) / F Account: [id number] Location: [facility] SURGICAL Taken: 09/11/2017 Received: 09/11/2017 Reported: 09/24/2017 Physicians: Ciaran Key Specimen(s) Received MUSCLE BIOPSY SEND OUT Clinical History Rule out myositis Final Diagnosis MUSCLE, THIGH, LEFT, BIOPSY: NECROTIZING MYOPATHY, ACTIVE. SEE COMMENT. 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 Lymphohistiocytic inflammation is present, largely associated with myonecrotic foci. Given the date of the biopsy (09/11/17), 15 [place] [address], the features may reflect, at least in part, an active/recovery phase of clinical rhabdomyolysis, rather than primary pathology. However, if the clinical investigation rules out the other causes of rhabdomyolysis such as toxic (e.g. iatrogenic, environmental). Infectious/post-infectious, metabolic, and late-onset hereditary myopathy, pointing to an autoimmune condition, immune-mediated necrotizing myopathy may be included in the differential diagnosis, as well as paraneoplastic disease and other idiopathic inflammatory myopathies in which wide-spread inflammation is elsewhere than the biopsied site. Clinical correlation is requested. This case was sent for consultation and work-up to Dr. Ingrid Koenig from [place], [place], the diagnosis reflects her opinion ([id number]). See [facility] report for additional details ([id number]). Electronically Signed Zayda Capone M.D. Gross Description Received fresh labeled "right thigh muscle biopsy," is a 2 cm in length x1.4 cm in diameter red-brown, cylindrical portion of muscle. The specimen is divided, placed into saline soaked gauze, formalin and glutaraldehyde. The specimen is sent to [facility] for further studies. DL09/11/2017 saudi09/11/2017
== END 2017-09-11 11:55 | disposition home or self-care (01) ==
LOC: JASU-SURG 08:06
PROVIDERS: ATTEND Surgery Vascular Surgery
PROC: 0KBR0ZX Excision of Left Upper Leg Muscle, Open Approach, Diagnostic (ICD-10-PCS; principal; 2017-09-11 09:00)
DX: M60.9 Myositis, unspecified (principal)
CPT/HCPCS: 88300-TC

== ENCOUNTER 2017-11-17 16:00 | Emergency (ER) | payer OTHER ==
[2017-11-17] MEDS ORDERED: AMIODARONE HCL 150 MG/3 ML VIAL ONE (16:20)
[2017-11-17 16:36] VITALS: BP 0/0; BMI 27.4
--- NOTE | 2017-11-17 17:03 | PDOC ---
History of Present Illness <Ori Zavalason - Last Filed: 11/17/17 17:14> - General History Source: EMS, Family Exam Limitations: Unresponsive <Gabrielle Fierro - Last Filed: 11/17/17 18:18> - General History Source: Patient Exam Limitations: No Limitations - History of Present Illness Initial Comments: 11/17/17 17:23 The patient is a 72-year-old female from [facility], with a significant past medical history of HTN, CHF, and GERD, who was found unresponsive at the detention with emesis around her. The patient was found in v tach. ACLS was initiated and EMS had returned circulation once briefly. Patient was intubated in the field; bloody secretions were noted in et tube. Amiodarone, epinephrine, and amlodipine were administered in the field. Down time was 45 minutes prior to arrival to the ED. The Nursing Senior Technical Project Manager from [facility] was contacted and the patient was last seem normal during the morning rounds today. Allergies: NKA PCP: Dr. Fortune <Elizabeth Johnson - Last Filed: 11/17/17 18:29> - General Chief Complaint: Respiratory Arrest Stated Complaint: RESP FAILURE,PULMONARY EDEMA Past History <Sung Zavala - Last Filed: 11/17/17 17:14> - Past Medical History Anemia: No Asthma: No Cancer: No Cardiac Disorders: No CVA: No COPD: No CHF: Yes Dementia: No Diabetes: No GI Disorders: Yes (GERD) Disorders: No HTN: Yes Hypercholesterolemia: Yes Liver Disease: No Seizures: No Thyroid Disease: No - Suicide/Smoking/Psychosocial Hx Smoking History: Unknown if ever smoked Have you smoked in the past 12 months: No Hx Alcohol Use: No Drug/Substance Use Hx: No Substance Use Type: None Hx Substance Use Treatment: No <Gabrielle Fierro - Last Filed: 11/17/17 18:18> <Elizabeth Johnson - Last Filed: 11/17/17 18:29> - Past Medical History Allergies/Adverse Reactions: Allergies Allergy/AdvReac Type Severity Reaction Status Date / Time No Known Allergies Allergy Verified 09/20/17 12:27 Home Medications: Ambulatory Orders Amlodipine Besylate 10 mg PO DAILY 07/26/17 Famotidine 20 mg PO DAILY 07/26/17 Triamterene/Hydrochlorothiazid [Triamterene-Hctz 37.5-25 mg Cp] 1 tab PO DAILY 07/26/17 Aspirin Coated [Ecotrin -] 81 mg PO DAILY tablet.ec 09/06/17 Docusate Sodium [Colace -] 300 mg PO HS capsule 09/06/17 Sennosides [Senna -] 1 tab PO BID tablet 09/06/17 predniSONE [Deltasone -] 60 mg PO DAILY tablet 09/06/17 Review of Systems - Review of Systems Able to Perform ROS?: No <Gabrielle Fierro - Last Filed: 11/17/17 18:18> *Physical Exam - Vital Signs Last Vital Signs Temp Pulse Resp BP Pulse Ox 0/0 11/17/17 16:00 <Sung Zavala - Last Filed: 11/17/17 17:14> - Vital Signs Last Vital Signs Temp Pulse Resp BP Pulse Ox 0/0 11/17/17 16:00 - Physical Exam General Appearance: Yes: Other (unresponsive, intubated on arrival. ) HEENT: positive: Other (ET tube with bloody secretions) Neck: positive: Trachea midline Respiratory/Chest: positive: Other (rhonchorous breath sounds bilaterally, equal , no spont respirations) Cardiovascular: positive: Other (no audible heart tones) Comments:: 11/17/17 18:15 no palp pulses Gastrointestinal/Abdominal: positive: Other (abd distended) Extremity: positive: Other (cool extremities) Neurologic: positive: Other (no spont movements) <Gabrielle Fierro - Last Filed: 11/17/17 18:18> - Vital Signs Last Vital Signs Temp Pulse Resp BP Pulse Ox 0/0 11/17/17 16:00 <Elizabeth Johnson - Last Filed: 11/17/17 18:29> Procedures - Central Line Central Line Lumen: triple Central Line Position: femoral (R) Complications: none Post Central Line Insertion: sutured, good blood return <Sung Zavala - Last Filed: 11/17/17 17:14> Medical Decision Making - Medical Decision Making 11/17/17 18:16 ACLS performed, brief ROSC, bedside us performed confirmed no cardiac activity. time of called at 1619. ME notified, not an ME case . ( christina no) case number family notified at bedside. called [facility] service, Aminah notified. <Gabrielle Fierro - Last Filed: 11/17/17 18:18> *DC/Admit/Observation/Transfer <Sung Zavala - Last Filed: 11/17/17 17:14> <Gabrielle Fierro - Last Filed: 11/17/17 18:18> - Attestations Scribe Attestion: 11/17/17 17:25 Documentation prepared by Elizabeth Johnson, acting as emergency medical service coordinator for Gabrielle Fierro MD. <Elizabeth Johnson - Last Filed: 11/17/17 18:29> Diagnosis at time of Disposition: Cardiac arrest - Discharge Dispostion Disposition:
== END 2017-11-17 19:45 | disposition expired ==
LOC: JER 16:00
PROC: 5A02216 Assistance with Cardiac Output using Other Pump, Continuous (ICD-10-PCS; principal; 2017-11-17)
PROC: 06HY33Z Insertion of Infusion Device into Lower Vein, Percutaneous Approach (ICD-10-PCS; 2017-11-17)
DX: I46.9 Cardiac arrest, cause unspecified (principal); I10 Essential (primary) hypertension; I50.9 Heart failure, unspecified; K21.9 Gastro-esophageal reflux disease without esophagitis; E78.00 Pure hypercholesterolemia, unspecified
CPT/HCPCS: 36558; 82962; 92950; 93770; 99284-25